=== PATIENT | male | born 1960 | race Caucasian/White ===

== ENCOUNTER 2022-09-21 11:18 | Inpatient (IN) | payer OTHER ==
[2022-09-21] MEDS ORDERED: VANCOMYCIN IV PER PHARMACY 1 EACH MISC MISCELLANE PRN (12:21)
[2022-09-21] MEDS ORDERED: SODIUM CHLORIDE 0.9% 1,000 ML IV STA (12:21)
[2022-09-21] MEDS ORDERED: DIPH,PERTUS(ACELL)TETVAC-LF 0.5 ML VIAL IM ONE (12:24)
[2022-09-21] MEDS ORDERED: MORPHINE SULFATE 4 MG/ML SYRINGE IVP STA (12:24)
[2022-09-21] MEDS ORDERED: VANCOMYCIN 1,500 MG in SODIUM CHLORIDE 0.9% 500 ML 500 ML IVPB STA (12:27)
[2022-09-21 13:24] LABS: Basophils # (A) 0.1 k/uL (0-0.2); Basophils % (A) 1 %; Eosinophils # (A) 0.1 k/uL (0-0.7); Eosinophils % (A) 1 %; HCT 42.3 % (39.0-53.0); HGB 14.5 gm/dL (13.0-17.5); Lymphocytes # (A) 1.8 k/uL (1.0-4.8); Lymphocytes % (A) 22 %; MCH 33.3 pg (25.0-35.0); MCHC 34.4 g/dL (31.0-37.0); MCV 96.8 fL (80.0-100.0); Monocytes # (A) 0.5 k/uL (0-1.0); Monocytes % (A) 7 %; Neutrophils # (A) 5.6 k/uL (1.3-7.7); Neutrophils % (A) 68 %; Platelet Count 189 k/uL (150-450); RBC 4.37 m/uL (4.30-5.90); RDW 13.5 % (11.5-15.5); WBC 8.2 k/uL (3.8-10.6)
--- NOTE | 2022-09-21 13:30 | ED ---
General Adult HPI - General Chief complaint: Wound/Laceration Stated complaint: Back Pain/Pain in lower Extremities Time Seen by Provider: 09/21/22 12:11 Source: patient, RN notes reviewed, old records reviewed Mode of arrival: wheelchair Limitations: no limitations - History of Present Illness Initial comments: Patient is a 61-year-old male with past medical history that he states is unremarkable, with a history of daily alcohol use as well as remote history of DVT in the right arm 20 years ago who presents emergency Department complaining of months of skin changes of the lower extremities. Seems to have gotten worse over the last 3-5 weeks. Has no some dark red changes to bilateral lower extremities, and then also began noticing some left foot skin changes. Became more erythematous, warm. Head skin that was peeling which he peeled back. Now is an open draining wound of purulent material over the lateral left heel. Denies any fevers. Endorses some acute on chronic lower and mid back pain that is reproducible with movement. No traumas. Denies chest pain, shortness breath, fevers, chills, abdominal pain, nausea, vomiting. Is not currently taking any medications. Presents for further evaluation at this time. His primary complaint is the back pain. Family was at bedside is concerned that he has a bad infection of his foot. No known history of diabetes. No other acute complaints at this time. Patient states he is not bed bound, and is ambulatory.Denies urinary or bowel incontinence or retention. Denies lower extremity paralysis. Denies saddle anesthesias. - Related Data Home Medications Medication Instructions Recorded Confirmed No Known Home Medications 09/21/22 09/21/22 Allergies Allergy/AdvReac Type Severity Reaction Status Date / Time Penicillins Allergy Rash/Hives Verified 09/21/22 15:20 Review of Systems ROS Statement: Those systems with pertinent positive or pertinent negative responses have been documented in the HPI. Review of Systems: CONST: Denies fever EYES: Denies blurry vision ENT: Denies nasal congestion C/V: Denies Chest pain RESP: Denies shortness of breath GI: Denies abdominal pain : Denies dysuria SKIN: Endorses left foot wound MSK: Endorses back pain NEURO: Denies headache ROS Other: All systems not noted in ROS Statement are negative. Past Medical History Past Medical History: Deep Vein Thrombosis (DVT) Additional Past Medical History / Comment(s): rt arm dvt History of Any Multi-Drug Resistant Organisms: None Reported Past Surgical History: No Surgical Hx Reported Past Psychological History: No Psychological Hx Reported Smoking Status: Current every day smoker Past Alcohol Use History: Daily, Heavy Past Drug Use History: None Reported General Exam - General Exam Comments Initial Comments: General: Appears in no acute distress. HEAD: Normal with no signs of head trauma. EYES: EOMI ENT: Hearing grossly intact, normal oropharynx. RESPIRATORY: Clear breath sounds bilaterally. No wheezes, rales, or rhonchi. C/V: Regular rate and rhythm. S1 and S2 auscultated, peripheral pulses 2+ and intact throughout ABD: Abd is soft, nontender, nondistended EXT: No obvious deformity. Normal range of motion. SKIN: Patient has purple-red discoloration of bilateral lower extremities. Left lower extremity appears more significant as it is involving both patient as well as the foot. Appears to have palpable dorsalis pedis pulses in bilateral lower extremities. Has intact sensation. Has intact movement. Neurovascular intact in bilateral lower extremities. Patient's wound is draining a yellow purulent like material. It is located on the inferior lateral aspect of the left foot, more posteriorly towards the heel. NEURO: Alert and oriented x 4. Cranial nerves II-XII intact. No focal sensory or strength deficits. Limitations: no limitations Course Vital Signs 09/21/22 09/21/22 09/21/22 11:55 13:07 20:22 Temperature 97.9 F Pulse Rate 76 72 74 Respiratory 20 18 18 Rate Blood Pressure 116/64 114/71 113/67 O2 Sat by Pulse 100 99 99 Oximetry Medical Decision Making - Medical Decision Making Was pt. sent in by a medical professional or institution (, PA, EDUCATION OFFICER, urgent care, hospital, or [facility]...) When possible be specific @ -No Did you speak to anyone other than the patient for history (EMS, parent, family, police, friend...)? What history was obtained from this source @ -No Did you review nursing and triage notes (agree or disagree)? Why? @ -I reviewed and agree with nursing and triage notes Were old charts reviewed (outside hosp., previous admission, EMS record, old EKG, old radiological studies, urgent care reports/EKG's, [facility] records)? Report findings @ -No old charts were reviewed Differential Diagnosis (chest pain, altered mental status, abdominal pain women, abdominal pain men, vaginal bleeding, weakness, fever, dyspnea, syncope, headache, dizziness, GI bleed, back pain, seizure, CVA, palpatations, mental health, musculoskeletal)? @ -Wet gangrene, dry gangrene, lower extremity infection, DVT, arterial occlusion, alcohol abuse, musculoskeletal back back pain, Osteomyelitis. This list is not all-inclusive. EKG interpreted by me (3pts min.). @ -As above X-rays interpreted by me (1pt min.). @ -Patient's x-rays remarkable for no obvious acute cardiopulmonary process. Appears to have an L4 compression fracture, more acute than other age-i ndeterminate ones. Left lower extremity x-rays revealed no evidence of osteomyelitis. CT interpreted by me (1pt min.). @ -None done U/S interpreted by me (1pt. min.). @ -Lower extremity ultrasound reveals intact dopplerable pulses in bilateral lower extremities. No evidence of DVTs. What testing was considered but not performed or refused? (CT, X-rays, U/S, labs)? Why? @ -None What meds were considered but not given or refused? Why? @ -None Did you discuss the management of the patient with other professionals (professionals i.e. , PA, EDUCATION OFFICER, lab, RT, psych nurse, social media marketer, feather washer, teacher, structural engineering drafting officer, nurse case management)? Give summary @ -Discussed with Dr. Luke the admitting physician, regarding admission which was accepted. I also discussed consultants, however she states she will consult the necessary physicians. Discussed consult for the what is likely multiple week to month history of the L4 compression fracture and she was in agreement with the evaluation prior to her consulting. Was smoking cessation discussed for >3mins.? @ -No Was critical care preformed (if so, how long)? @ -No Were there social determinants of health that impacted care today? How? (Homelessness, low income, unemployed, alcoholism, drug addiction, transportation, low edu. Level, literacy, decrease access to med. care, custodial, rehab)? @ -No Was there de-escalation of care discussed even if they declined (Discuss DNR or withdrawal of care, Hospice)? DNR status @ -No What co-morbidities impacted this encounter? (DM, HTN, Smoking, COPD, CAD, Cancer, CVA, ARF, Chemo, Hep., AIDS, mental health diagnosis, sleep apnea, morbid obesity)? @ -Alcohol abuse Was patient admitted / discharged? Hospital course, mention meds given and route, prescriptions, significant lab abnormalities, going to OR and other pertinent info. @ -Based on the patient's presentation and physical exam, patient appears to have presented for musculoskeletal reproducible back pain as well as a more sign ificant left foot infection. Appears to be wet gangrene related. Appears to have intact peripheral pulses as well as sensation. Neurovascular exam is unremarkable the left lower extremity. However we will obtain duplex ultrasounds as well as x-ray imaging of the left lower extremity as well as the back and chest. Patient was in agreement this plan. We will obtain infectious labs. He will empirically be started on IV vancomycin. We will obtain wound cultures as well as blood cultures. Vital signs within acceptable limits. Patient will receive a 1 L fluid bolus as well as IV morphine for pain. Tetanus will be updated. Patient was in agreement this plan. Imaging remarkable for no DVT in the left lower extremity. No evidence of I myelitis. Has what appears to be a subacute L4 compression fracture in the setting of no recent falls and pain for multiple months. No concern for cauda equina syndrome at this time. Patient does have intact pulses in bilateral lower extremities. Patient's labs are remarkable for a furniture anemia of 127. Hypochloremia of 96., Carbon Dioxide is decreased to 18. Lactic acid within acceptable limits. Remainder of the labs are within acceptable limits. Discussed the workup with the patient. We will continue IV antibiotics and admit him at this time. He was in agreement this plan. I spoke with the admitting physician, Dr. Luke who accepted the patient. She states she will handle consultants after she evaluates the patient. Otherwise in agreement with the plan.He likely will require vascular as well as orthopedic surgery consult and evaluation. Undiagnosed new problem with uncertain prognosis? @ -No Drug Therapy requiring intensive monitoring for toxicity (Heparin, Nitro, Insulin, Cardizem)? @ -No Were any procedures done? @ -No Diagnosis/symptom? @ -Dry gangrene, possible mild wet gangrene of the left foot. Acute, or Chronic, or Acute on Chronic? @ -Acute on chronic Uncomplicated (without systemic symptoms) or Complicated (systemic symptoms)? @ -Complicated Side effects of treatment? @ -none Exacerbation, Progression, or Severe Exacerbation] @ -no Poses a threat to life or bodily function? @ -Yes Diagnosis/symptom? @ -Intractable chronic low back pain with what appears to be subacute L2 compression fracture with no recent falls or obvious injuries Acute, or Chronic, or Acute on Chronic? @ -Acute Uncomplicated (without systemic symptoms) or Complicated (systemic symptoms)? @ -Uncomplicated Side effects of treatment? @ -none Exacerbation, Progression, or Severe Exacerbation] @ -no Poses a threat to life or bodily function? @ -no Diagnosis/symptom? @ -Alcohol abuse Acute, or Chronic, or Acute on Chronic? @ -Chronic Uncomplicated (without systemic symptoms) or Complicated (systemic symptoms)? @ -Uncomplicated Side effects of treatment? @ -none Exacerbation, Progression, or Severe Exacerbation] @ -no Poses a threat to life or bodily function? @ -no - Lab Data Result diagrams: 09/21/22 12:50 09/21/22 21:44 Lab Results 09/21/22 09/21/22 09/21/22 Range/Units 12:50 12:50 12:50 WBC (3.8-10.6) k/uL RBC (4.30-5.90) m/uL Hgb (13.0-17.5) gm/dL Hct (39.0-53.0) % MCV (80.0-100.0) fL MCH (25.0-35.0) pg MCHC (31.0-37.0) g/dL RDW (11.5-15.5) % Plt Count (150-450) k/uL MPV Neutrophils % % Lymphocytes % % Monocytes % % Eosinophils % % Basophils % % Neutrophils # (1.3-7.7) k/uL Lymphocytes # (1.0-4.8) k/uL Monocytes # (0-1.0) k/uL Eosinophils # (0-0.7) k/uL Basophils # (0-0.2) k/uL PT 10.2 (9.0-12.0) sec INR 1.0 (<1.2) APTT 26.8 (22.0-30.0) sec Sodium 127 L (137-145) mmol/L Potassium 3.9 (3.5-5.1) mmol/L Chloride 96 L (98-107) mmol/L Carbon Dioxide 18 L (22-30) mmol/L Anion Gap 13 mmol/L BUN 14 (9-20) mg/dL Creatinine 0.71 (0.66-1.25) mg/dL Est GFR (CKD-EPI)AfAm >90 (>60 ml/min/1.73 sqM) Est GFR (CKD-EPI)NonAf >90 (>60 ml/min/1.73 sqM) Glucose 103 H (74-99) mg/dL Plasma Lactic Acid Klever (0.7-2.0) mmol/L Calcium 9.0 (8.4-10.2) mg/dL Total Bilirubin 1.9 H (0.2-1.3) mg/dL AST 39 (17-59) U/L ALT 24 (4-49) U/L Alkaline Phosphatase 189 H (38-126) U/L Total Protein 8.2 (6.3-8.2) g/dL Albumin 3.9 (3.5-5.0) g/dL Urine Color Yellow Urine Appearance Clear (Clear) Urine pH 5.5 (5.0-8.0) Ur Specific [place] 1.013 (1.001-1.035) Urine Protein Negative (Negative) Urine Glucose (UA) Negative (Negative) Urine Ketones 1+ H (Negative) Urine Blood Trace H (Negative) Urine Nitrite Negative (Negative) Urine Bilirubin Negative (Negative) Urine Urobilinogen 2.0 (<2.0) mg/dL Ur Leukocyte Esterase Negative (Negative) Urine RBC 1 (0-5) /hpf Urine WBC 1 (0-5) /hpf Ur Squamous Epith Cells <1 (0-4) /hpf Urine Mucus Rare H (None) /hpf Serum Alcohol 17 mg/dL 09/21/22 09/21/22 Range/Units 12:50 12:50 WBC 8.2 (3.8-10.6) k/uL RBC 4.37 (4.30-5.90) m/uL Hgb 14.5 (13.0-17.5) gm/dL Hct 42.3 (39.0-53.0) % MCV 96.8 (80.0-100.0) fL MCH 33.3 (25.0-35.0) pg MCHC 34.4 (31.0-37.0) g/dL RDW 13.5 (11.5-15.5) % Plt Count 189 (150-450) k/uL MPV 10.0 Neutrophils % 68 % Lymphocytes % 22 % Monocytes % 7 % Eosinophils % 1 % Basophils % 1 % Neutrophils # 5.6 (1.3-7.7) k/uL Lymphocytes # 1.8 (1.0-4.8) k/uL Monocytes # 0.5 (0-1.0) k/uL Eosinophils # 0.1 (0-0.7) k/uL Basophils # 0.1 (0-0.2) k/uL PT (9.0-12.0) sec INR (<1.2) APTT (22.0-30.0) sec Sodium (137-145) mmol/L Potassium (3.5-5.1) mmol/L Chloride (98-107) mmol/L Carbon Dioxide (22-30) mmol/L Anion Gap mmol/L BUN (9-20) mg/dL Creatinine (0.66-1.25) mg/dL Est GFR (CKD-EPI)AfAm (>60 ml/min/1.73 sqM) Est GFR (CKD-EPI)NonAf (>60 ml/min/1.73 sqM) Glucose (74-99) mg/dL Plasma Lactic Acid Klever 1.8 (0.7-2.0) mmol/L Calcium (8.4-10.2) mg/dL Total Bilirubin (0.2-1.3) mg/dL AST (17-59) U/L ALT (4-49) U/L Alkaline Phosphatase (38-126) U/L Total Protein (6.3-8.2) g/dL Albumin (3.5-5.0) g/dL Urine Color Urine Appearance (Clear) Urine pH (5.0-8.0) Ur Specific [place] (1.001-1.035) Urine Protein (Negative) Urine Glucose (UA) (Negative) Urine Ketones (Negative) Urine Blood (Negative) Urine Nitrite (Negative) Urine Bilirubin (Negative) Urine Urobilinogen (<2.0) mg/dL Ur Leukocyte Esterase (Negative) Urine RBC (0-5) /hpf Urine WBC (0-5) /hpf Ur Squamous Epith Cells (0-4) /hpf Urine Mucus (None) /hpf Serum Alcohol mg/dL - EKG Data -: EKG Interpreted by Me EKG Comments: 12-lead Electrocardiogram Interpretation Note EKG was reviewed and interpreted by myself. 12-lead ECG performed at 1245 is interpreted by me as revealing normal sinus rhythm at a rate of 67 beats per minute. George is normal. NM interval is 142 ms, QRS duration is 101 ms, QTc is 428 ms.. There were no ST or T wave abnormalities to suggest myocardial ischemia or injury. R wave progression across the precordium was satisfactory. By my interpretation this EKG is non-diagnostic for acute ischemia. Disposition Clinical Impression: Dry gangrene, Peripheral vascular disease, Lumbar compression fracture, Alcohol abuse Disposition: ADMITTED IP TO THIS HOSP Condition: Serious Time of Disposition: 15:49
[2022-09-21 13:48] LABS: ALT 24 U/L (4-49); AST 39 U/L (17-59); African American GFR (CKD) >90 (>60 ml/min/1.73 sqM); Albumin 3.9 g/dL (3.5-5.0); Alcohol 17 mg/dL; Alkaline Phosphatase 189 U/L (38-126); Anion Gap 13 mmol/L; Blood Urea Nitrogen 14 mg/dL (9-20); Carbon Dioxide 18 mmol/L (22-30); Chloride 96 mmol/L (98-107); Glucose 103 mg/dL (74-99); Non-African American GFR(CKD) >90 (>60 ml/min/1.73 sqM); Potassium 3.9 mmol/L (3.5-5.1); Sodium 127 mmol/L (137-145); Total Bilirubin 1.9 mg/dL (0.2-1.3); Total Protein 8.2 g/dL (6.3-8.2)
--- NOTE | 2022-09-21 13:50 | XR ---
EXAMINATION TYPE: XR chest 2V DATE OF EXAM: 09/21/2022 COMPARISON: NONE HISTORY: Chest pain. TECHNIQUE: Frontal and lateral views of the chest are obtained. FINDINGS: Mild chronic parenchymal changes are present bilaterally. There is no suspicious focal air space opacity, pleural effusion, or pneumothorax seen. The cardiac silhouette size is within normal limits. The osseous structures are demineralized. IMPRESSION: No acute cardiopulmonary process.
--- NOTE | 2022-09-21 13:53 | XR ---
EXAMINATION TYPE: XR tibia fibula LT DATE OF EXAM: 09/21/2022 CLINICAL HISTORY: Pain. TECHNIQUE: Two views of the left leg are obtained. COMPARISON: None. FINDINGS: There is no acute fracture or dislocation seen in the left tibia or fibula. Mild to modera te narrowing patellofemoral and medial tibiofemoral compartments in the left knee. Small to moderate size inferior calcaneal spur. Overlying clothing or blanket material is noted making evaluation of s oft tissues suboptimal. IMPRESSION: As above.
--- NOTE | 2022-09-21 13:55 | XR ---
EXAMINATION TYPE: XR thoracic spine 2V, XR lumbar spine 2 or 3V DATE OF EXAM: 09/21/2022 1:46 PM INDICATION: Patient age:Male; 61 years old; Reason for study: pain; COMPARISON: None TECHNIQUE: 2 views of the thoracic and lumbar spine in Frontal and lateral projections. FINDINGS: Acute appearing L4 vertebral body compression fracture with at least 25% height loss. There are addit ional age-indeterminate compression deformities throughout the visualized lower thoracic spine/upper lumbar. There is scattered multilevel disk space narrowing. There is straightened alignment of the th oracic lumbar vertebral bodies. Scattered osteophyte formation along the anterior and lateral aspects of the vertebral bodies. Neural foramen are patent given limitations of this exam. Spinal canal appe ars patent. IMPRESSION: 1. Acute appearing L4 compression fracture. Further evaluation MRI is recommended. 2. Multiple compression deformities which are age-indeterminate throughout the lower thoracic and up per lumbar spine.
[2022-09-21 13:58] LABS: Partial Thromboplastin Time 26.8 sec (22.0-30.0); Prothrombin Time 10.2 sec (9.0-12.0)
--- NOTE | 2022-09-21 14:00 | XR ---
EXAMINATION TYPE: XR foot limited LT DATE OF EXAM: 09/21/2022 CLINICAL HISTORY: open wound, heel/foot. eval for osteo TECHNIQUE: Frontal and lateral images of the left foot are obtained. COMPARISON: None FINDINGS: Osseous structures are demineralized. There is no acute fracture/dislocation evident in th e left foot. Moderate to large size inferior calcaneal spur. The Chamberlain's toe is seen. No suspicious bony destruction with particular attention to the calcaneus at the area of clinical concern to sugges t acute osteomyelitis. Some flexion of pneumatosis seen. Overlying soft tissue is unremarkable. IMPRESSION: As above.
--- NOTE | 2022-09-21 15:09 | US ---
EXAMINATION TYPE: US venous doppler duplex LE BI DATE OF EXAM: 09/21/2022 2:39 PM COMPARISON: NONE CLINICAL INDICATION: Male, 61 years old with history of eval for dvt; bilateral leg pain. discolorati on bilateral legs, worse on the left SIDE PERFORMED: bilateral TECHNIQUE: The lower extremity deep venous system is examined utilizing real time linear array sonog kalyn with graded compression, doppler sonography and color-flow sonography. VESSELS IMAGED: Common Femoral Vein Deep Femoral Vein Greater Saphenous Vein * Femoral Vein Popliteal Vein Small Saphenous Vein * Proximal Calf Veins (* superficial vessels) Right Leg: no evidence of DVT Left Leg: no evidence of DVT. lymph nodes left groin, largest = 3.5cm Grayscale, color doppler, spectral doppler imaging performed of the deep veins of the bilateral lower extremities. There is normal flow, compressibility, vascular waveforms. Reactive adenopathy left groin region suspected. IMPRESSION: No ultrasound evidence for acute DVT in either lower extremity.
[2022-09-21] MEDS ORDERED: ACETAMINOPHEN TAB 325 MG TAB PO PRN (15:56)
[2022-09-21] MEDS ORDERED: NALOXONE 0.4 MG/ML 1 ML VIAL IV PRN (15:56)
[2022-09-21] MEDS: MORPHINE SULFATE 4 MG/ML SYRINGE IV PRN ×2 (17:45→23:07)
[2022-09-21] MEDS: HEPARIN SODIUM,PORCINE/PF 5,000 UNIT/0.5 ML SYRINGE SQ SCH ×2 (17:47→23:07)
[2022-09-21 18:04] LABS: Appearance,Urine Clear (Clear); Bilirubin,Urine Negative (Negative); Blood,Urine Trace (Negative); Color,Urine Yellow; Glucose,Urine (UA) Negative (Negative); Ketones,Urine 1+ (Negative); Leukocyte Esterase,Urine Negative (Negative); Mucus,Urine Rare /hpf; Nitrite,Urine Negative (Negative); PH, Urine 5.5 (5.0-8.0); Protein,Urine Negative (Negative); RBC,Urine 1 /hpf (0-5); Specific Gravity,Urine 1.013 (1.001-1.035); Squamous Epithelial Cell,Urine <1 /hpf (0-4); WBC,Urine 1 /hpf (0-5)
[2022-09-21] MEDS ORDERED: MELATONIN 3 MG TABLET PO PRN (19:23)
[2022-09-21] MEDS ORDERED: bisacodyL 5 MG TABLET.DR PO PRN (19:23)
[2022-09-21] MEDS ORDERED: ONDANSETRON 4 MG/2 ML VIAL IVP PRN (19:23)
[2022-09-21] MEDS ORDERED: NICOTINE GUM (POLACRILEX) 2 MG GUM BUCCAL PRN (19:23)
[2022-09-21] MEDS ORDERED: LORazepam 2 MG/ML INJ IV PRN ×3 (19:26)
--- NOTE | 2022-09-21 19:28 | P.HPIM ---
History of Present Illness H&P Date: 09/21/22 Patient is a 61-year-old male with nicotine and alcohol dependency who presented to the ER with complaints of bilateral lower extremity pain. On arrival his vital signs were within normal limits. Laboratory analysis was remarkable for a carbon dioxide of 18, sodium of 127, total bilirubin of 1.9. He was found to have an acute L2 compression fracture and probable dry gangrene of the left lower extremity. He was started on vanco and pain medications and arrangement were made for admission. Patient seen and examined at bedside. He complained of back and leg pain for the last 3-5 weeks. He states that 3-5 weeks ago he started noticing some discoloration of bilateral lower extremities left greater than right. At that point in time he noticed some shaking of his skin and removed a large piece of skin from his left lateral malleolus. Since then he has had worsening di scoloration and wound forming on that malleolus. He also describes low back pain which has been worsening in nature. He does not have much lower extremity pain when he is laying but every time he gets up to ambulate he has significant pain. He denies any numbness or tingling. He denies any acute injury to that area. He denies any recent falls. He does report that he drinks 340 ounce beers daily. He denies any chronic medical conditions but has not seen a doctor since 2007. He reports that he is retired. Patient is unable to perform greater than 4 Mets due to shortness of breath. He is unable to walk up flight of stairs or down 2 city blocks. Vital signs reviewed General: nontoxic, no distress, appears at stated age Derm: warm, dry, Thick yellow back plawuing of the left lateral malleolus with surrounding skin coughing and erythema Eyes: EOMI, no lid lag, anicteric sclera, pupils equal round reactive to light ENT: Nose and ears atraumatic, no thrush, no pharyngeal erythema Cardiovascular: S1S2 reg, no murmur, no palpable dorsalis pedis or posterior tibial pulses, no edema, capillary refill less than 2 seconds Lungs: clear to auscultation bilateral, no rhonchi, no rales, no wheeze, no accessory muscle use Abdominal: soft, nontender to palpation, no guarding, no appreciable organomegaly, normal bowel sounds Ext: no gross muscle atrophy, no contractures Neuro: CN II-XII grossly intact, light touch intact all 4 extremities, finger to nose within normal limits, Psych: Alert, oriented, appropriate affect Assessment: Left lower limb ischemia with possible dry gangrene, symptomatic PAD Intractable low back pain with L2 acute compression fracture Nicotine dependency Alcohol dependency with impending withdrawal Imaging: Chest x-ray showed no acute process. Left foot x-ray-no acute fracture or dislocation, moderate to large sized inferior calcaneal spur Tib-fib x-ray on the right-no acute process Lumbar x-ray-acute appearing L4 compression fracture, further evaluation with MRI recommended, multiple compression deformities which are age intermediate throughout the lower thoracic and lumbar spine Large, the venous Doppler-no evidence of acute DVT in either lower extremity, en larged lymph nodes left groin largest 3.5 cm Arterial Dopplers-toe brachial index right 1.13, left 0.93 Data Review: Laboratory analysis was remarkable for a carbon dioxide of 18, sodium of 127, total bilirubin of 1.9. Plan: -Consult spine ortho -Consult vascular surgery, nothing by mouth after midnight -Morphine 4 mg every 4 when necessary pain, Norvasc 7. 5/325 every 6 hours when necessary pain -Continue with vancomycin. Will need daily vancomycin trough and creatinine to monitor for toxicity and -Nicotine replacement -IV fluids -CIWA, thiamine, folic acid - PT/OT - fall precautions. The patient is admitted with an anticipated greater than 2 midnight stay for evaluation of Ischemic limb. DVT prophylaxis: Lovenox Discussed with: Patient and nursing Anticipated discharge date: Pending Clinical Course Anticipated discharge place: Pending Clinical Course This dictation was prepared using [employer] voice recognition software. Though every attempt is made to correct errors during during dictation some may still exist. Past Medical History Past Medical History: Deep Vein Thrombosis (DVT) Additional Past Medical History / Comment(s): rt arm dvt History of Any Multi-Drug Resistant Organisms: None Reported Past Surgical History: No Surgical Hx Reported Past Psychological History: No Psychological Hx Reported Smoking Status: Current every day smoker (1.5 PPD since age 18) Past Alcohol Use History: Daily (3 40 ounce beers daily), Heavy Past Drug Use History: None Reported Medications and Allergies Home Medications Medication Instructions Recorded Confirmed Type No Known Home Medications 09/21/22 09/21/22 History Allergies Allergy/AdvReac Type Severity Reaction Status Date / Time Penicillins Allergy Rash/Hives Verified 09/21/22 15:20 Physical Exam Osteopathic Statement: *. No significant issues noted on an osteopathic str uctural exam other than those noted in the History and Physical/Consult. Vitals: Vital Signs Temp Pulse Resp BP Pulse Ox 09/21/22 13:07 72 18 114/71 99 09/21/22 11:55 97.9 F 76 20 116/64 100 Intake and Output 09/21/22 09/21/22 09/21/22 06:59 14:59 22:59 Other: Weight 83.915 kg Results CBC & Chem 7: 09/21/22 12:50 09/21/22 12:50 Labs: Abnormal Lab Results - Last 24 Hours (Table) 09/21/22 09/21/22 Range/Units 12:50 12:50 Sodium 127 L (137-145) mmol/L Chloride 96 L (98-107) mmol/L Carbon Dioxide 18 L (22-30) mmol/L Glucose 103 H (74-99) mg/dL Total Bilirubin 1.9 H (0.2-1.3) mg/dL Alkaline Phosphatase 189 H (38-126) U/L Urine Ketones 1+ H (Negative) Urine Blood Trace H (Negative) Urine Mucus Rare H (None) /hpf
[2022-09-21] MEDS: SODIUM CHLORIDE 0.9% 1,000 ML IV SCH (20:16)
[2022-09-21 22:07] LABS: African American GFR (CKD) >90 (>60 ml/min/1.73 sqM); Anion Gap 6 mmol/L; Blood Urea Nitrogen 13 mg/dL (9-20); Calcium 7.9 mg/dL (8.4-10.2); Carbon Dioxide 22 mmol/L (22-30); Chloride 101 mmol/L (98-107); Glucose 104 mg/dL (74-99); Non-African American GFR(CKD) >90 (>60 ml/min/1.73 sqM); Potassium 4.1 mmol/L (3.5-5.1); Sodium 129 mmol/L (137-145)
[2022-09-21] MEDS: VANCOMYCIN 1,250 MG in SODIUM CHLORIDE 0.9% 250 ML IVPB SCH (23:00)
--- NOTE | 2022-09-21 23:10 | CT ---
EXAM: CT Thoracic Spine Without Intravenous Contrast CLINICAL HISTORY: ITS.REASON CT Reason: back pain, weakness, L2 compression fracture TECHNIQUE: Axial computed tomography images of the thoracic spine without intravenous contrast. CTDI is 22.59 mGy and DLP is 1631.5 mGy-cm. This CT exam was performed using one or more of the following dose reduction techniques: automated exposure control, adjustment of the mA and/or kV according to patient size, and/or use of iterative reconstruction technique. COMPARISON: No relevant prior studies available. FINDINGS: Vertebrae: Subacute-chronic compression fractures involving the superior endplate of T12 (mild), T9 (moderate), and T7 (moderate). Mild retropulsion of the superior endplates of T12 and T7, which contribute to low-grade spinal canal stenosis. Thoracic spondylosis and disc space narrowing. Multilevel foraminal and spinal canal stenosis. Osseous demineralization. Intact spinous processes and transverse processes. No spondylolisthesis. Discs/spinal canal/neural foramina: See above. Soft tissues: Unremarkable. IMPRESSION: Subacute-chronic compression fractures involving the superior endplate of T12 (mild), T9 (moderate), and T7 (moderate). Mild retropulsion of the superior endplates of T12 and T7, which contribute to low-grade spinal canal stenosis. Consider MRI for further evaluation. EXAM: CT Lumbar Spine Without Intravenous Contrast CLINICAL HISTORY: ITS.REASON CT Reason: back pain, weakness, L2 compression fracture TECHNIQUE: Axial computed tomography images of the lumbar spine without intravenous contrast. CTDI is 22.59 mGy and DLP is 1631.5 mGy-cm. This CT exam was performed using one or more of the following dose reduction techniques: automated exposure control, adjustment of the mA and/or kV according to patient size, and/or use of iterative reconstruction technique. COMPARISON: No relevant prior studies available. FINDINGS: Vertebrae: Subacute-chronic compression fracture involving the superior endplate of L1 and L4. There is mild retropulsion of both superior endplates, which contributes to mild spinal canal stenosis. Lumbar spondylosis and disc space narrowing. Multilevel foraminal and spinal canal stenosis. Osseous demineralization. Intact spinous processes and transverse processes. No spondylolisthesis. Discs/spinal canal/neural foramina: See above. Soft tissues: Unremarkable. IMPRESSION: Subacute-chronic compression fracture involving the superior endplate of L1 and L4. There is mild retropulsion of both superior endplates, which contributes to mild spinal canal stenosis. Consider MRI for further evaluation.
[2022-09-22] MEDS: MORPHINE SULFATE 4 MG/ML SYRINGE IV PRN ×4 (03:07→21:42)
[2022-09-22] MEDS: VANCOMYCIN 1,250 MG in SODIUM CHLORIDE 0.9% 250 ML IVPB SCH ×3 (06:23→22:35)
[2022-09-22] MEDS: SODIUM CHLORIDE 0.9% 1,000 ML IV SCH ×2 (06:24→15:29)
[2022-09-22 06:58] LABS: INR 1.1 (<1.2); Prothrombin Time 11.6 sec (9.0-12.0)
[2022-09-22 06:59] LABS: HCT 35.2 % (39.0-53.0); HGB 11.8 gm/dL (13.0-17.5); MCH 32.9 pg (25.0-35.0); MCHC 33.6 g/dL (31.0-37.0); MCV 97.7 fL (80.0-100.0); Mean Platelet Volume 9.9; Platelet Count 145 k/uL (150-450); RDW 13.9 % (11.5-15.5); WBC 6.4 k/uL (3.8-10.6)
[2022-09-22 07:58] LABS: African American GFR (CKD) >90 (>60 ml/min/1.73 sqM); Anion Gap 6 mmol/L; Blood Urea Nitrogen 13 mg/dL (9-20); Carbon Dioxide 20 mmol/L (22-30); Chloride 105 mmol/L (98-107); Glucose 87 mg/dL (74-99); Non-African American GFR(CKD) >90 (>60 ml/min/1.73 sqM); Potassium 4.2 mmol/L (3.5-5.1); Sodium 131 mmol/L (137-145)
[2022-09-22] MEDS: HEPARIN SODIUM,PORCINE/PF 5,000 UNIT/0.5 ML SYRINGE SQ SCH ×3 (08:17→23:52)
[2022-09-22] MEDS: NICOTINE 21MG/24HR PATCH TRANSDERM SCH (08:18)
[2022-09-22] MEDS: FOLIC ACID 1 MG TAB PO SCH (08:18)
[2022-09-22] MEDS: HYDROcodone/APAP 5-325MG 1 EACH TAB PO PRN (08:18)
[2022-09-22] MEDS: THIAMINE 100 MG TAB PO SCH (08:18)
--- NOTE | 2022-09-22 08:57 | P.CNOR ---
History of Present Illness - [facility] Consult date: 09/22/22 Requesting physician: Ember Luke Consult reason: low back pain, other (Compression fracture) History of present illness: History of Presenting Illness Patient is a pleasant 61-year-old male who presented to the ER due to bilateral lower extremity pain. He states that he is ambulatory independently. Patient states that [place] live on the streets and goes to his son-in-law's when it is cold and stays in his basement. Patient denies any recent falls or trauma. He does report chronic back pain that seems to be progressing over the past few months. Patient reports that he looks for his medications on the streets. He admits to daily nicotine and alcohol use. He denies any previous othropedic history. Patient seen and examined this morning. He is currently resting in bed. Patient reports an aching lumbar pain with intermittent sharp pain with activity. Patient states his pain is controlled on current regimen. He denies any numbness or tingling into the bilateral lower extremities. It is documented that patient does present with a open draining wound of purulent material over the lateral left heel, current dressing covering wound is CDI. He denies any retention/loss of bladder or bowel. Patient has been afebrile, denies nausea/vomiting or chest pain. Review of Systems Pertinent positives and negatives as discussed in HPI, a complete review of systems was performed and all other systems are negative. Physical Examination Patient is alert and oriented 3 appears well-nourished well-hydrated is in no acute distress. They do not appear septic. On exam the patient has mild tenderness to palpation over the midline lumbar s pine. There is no edema or ballottement sign. Lower extremities with 4/5 strength in all major muscle groups Upper extremities show 5/5 strength in all major muscle groups. 2/4DTR all UE and LE b/l Patient shows a negative Homans, Collins's, negative Babinski's negative clonus bilaterally. Negative straight leg raise bilaterally. No tensioning signs. Cranial nerves II through XII are grossly intact. There is FROM that is painless of the b/l UE and LE in all major joints w/o pain. They are intact to light touch sensation in L2 to S1 nerve distribution. Patient has palpable dorsalis pedis was posterior tibial pulses. Compartments are soft and compressible. Assessment and Plan CT of the Thoracic and Lumbar Spine demonstrate a subacute-chronic compression fractures involving the superior endplate of T12 (mild), T9 (moderate), and T7 (moderate). Mild retropulsion of the superior endplates of T12 and T7, which contribute to low-grade spinal canal stenosis. Subacute-chronic compression fracture involving the superior endplate of L1 and L4. There is mild retropulsion of both superior endplates, which contributes to mild spinal canal stenosis. Chronic compression fractures of T7, T9, and T12 with mild spinal canal stenosis Chronic L1 compression fracture Acute L4 compression fracture BLE radiculopathy Multple comorbidities At this time we do not recommend any emergent/urgent orthopedic surgical intervention. Patient may follow-up with Dr. Evangelista's office for further evaluation as needed. Orthopedics is signing off at this time. Please do not hesitate to contact us for any further questions. 2. Appreciate medical management 3. Pain management - Continue with current regimen, may benefit from trial of steroids 4. GI prophylaxis - senna, miralax 5. DVT prophylaxis - per medicine 6. PT/OT - weightbearing as tolerated with a walker as needed, Recommend LSO brace 7. Appreciate consult I reviewed and discussed this case with my attending Dr. Evangelista, whom has reviewed this chart and films and is in agreement with assessment and plan of care as outlined above. I have personally seen and examined the patient, performed the documentation and the assessment and plan as written. Number of minutes spent on the visit: 20m. Past Medical History Past Medical History: Deep Vein Thrombosis (DVT) Additional Past Medical History / Comment(s): rt arm dvt History of Any Multi-Drug Resistant Organisms: None Reported Past Surgical History: No Surgical Hx Reported Past Anesthesia/Blood Transfusion Reactions: No Reported Reaction Past Psychological History: No Psychological Hx Reported Smoking Status: Current every day smoker Past Alcohol Use History: Daily, Heavy Past Drug Use History: None Reported Medications and Allergies Home Medications Medication Instructions Recorded Confirmed Type No Known Home Medications 09/21/22 09/21/22 History Allergies Allergy/AdvReac Type Severity Reaction Status Date / Time Penicillins Allergy Rash/Hives Verified 09/21/22 15:20 Results - Labs Labs: Abnormal Lab Results - Last 24 Hours (Table) 09/21/22 09/21/22 09/21/22 Range/Units 12:50 12:50 21:44 RBC (4.30-5.90) m/uL Hgb (13.0-17.5) gm/dL Hct (39.0-53.0) % Plt Count (150-450) k/uL Sodium 127 L 129 L (137-145) mmol/L Chloride 96 L (98-107) mmol/L Carbon Dioxide 18 L (22-30) mmol/L Creatinine 0.60 L (0.66-1.25) mg/dL Glucose 103 H 104 H (74-99) mg/dL Osmolality (280-301) mosm/kg Calcium 7.9 L (8.4-10.2) mg/dL Total Bilirubin 1.9 H (0.2-1.3) mg/dL Alkaline Phosphatase 189 H (38-126) U/L Urine Ketones 1+ H (Negative) Urine Blood Trace H (Negative) Urine Mucus Rare H (None) /hpf 09/21/22 09/22/22 Range/Units 21:44 05:53 RBC 3.60 L (4.30-5.90) m/uL Hgb 11.8 L (13.0-17.5) gm/dL Hct 35.2 L (39.0-53.0) % Plt Count 145 L (150-450) k/uL Sodium (137-145) mmol/L Chloride (98-107) mmol/L Carbon Dioxide (22-30) mmol/L Creatinine (0.66-1.25) mg/dL Glucose (74-99) mg/dL Osmolality 273 L (280-301) mosm/kg Calcium (8.4-10.2) mg/dL Total Bilirubin (0.2-1.3) mg/dL Alkaline Phosphatase (38-126) U/L Urine Ketones (Negative) Urine Blood (Negative) Urine Mucus (None) /hpf Microbiology - Last 24 Hours (Table) 09/21/22 13:55 Wound Culture - Preliminary Foot - Left 09/21/22 13:55 Anaerobic Culture - Preliminary Foot - Left H & H 09/21/22 09/22/22 Range/Units 12:50 05:53 Hgb 14.5 11.8 L (13.0-17.5) gm/dL Hct 42.3 35.2 L (39.0-53.0) % Coagulation 09/21/22 09/22/22 Range/Units 12:50 05:53 INR 1.0 1.1 (<1.2) Result Diagrams: 09/22/22 05:53 09/22/22 05:53
[2022-09-22] MEDS ORDERED: IV FLUID CONTINUATION 1,000 ML IV ONE (10:28)
--- NOTE | 2022-09-22 10:35 | P.GSCN ---
History of Present Illness Consult date: 09/22/22 Reason for Consult: Symptomatic PAD Requesting physician: Ember Luke History of present illness: This a pleasant 61-year-old male who presented to the emergency department yesterday with concerns of lower extremity pain and infection. Patient states he started noting discoloration and changes to his lower extremities about 5 weeks ago. States over the last couple weeks left lower extremity began getting worse with wound and increased swelling and redness as well as drainage. She denies any significant past medical history. He is a daily smoker and swell as heavy alcoholic use. Patient admits to 3 beers daily. He does admit to pain in lower extremities left greater than right. States he has had some drainage from the left lateral side of ankle. Denies any fevers or chills. Also lower back pain. He denies any recent injuries. Vascular surgery was consulted for symptomatic peripheral arterial disease. Patient did have x-ray of the lumbar spine reporting acute appearing L4 compression fracture. Multiple compression deformities which are age indeterminate throughout the lower thoracic and upper lumbar spine. X-ray of tibula/fibula no acute findings, but x-ray of left foot shows no eviden ce of osteomyelitis. He also underwent lower extremity arterial duplex with REJI on left of 1.32 and right 1.25, consistent with venous insufficiency. Review of Systems A 14 point review systems was completed all pertinent positives and negatives as stated in the HPI. Past Medical History Past Medical History: Deep Vein Thrombosis (DVT) Additional Past Medical History / Comment(s): rt arm dvt History of Any Multi-Drug Resistant Organisms: None Reported Past Surgical History: No Surgical Hx Reported Past Anesthesia/Blood Transfusion Reactions: No Reported Reaction Past Psychological History: No Psychological Hx Reported Smoking Status: Current every day smoker Past Alcohol Use History: Daily, Heavy Past Drug Use History: None Reported Medications and Allergies Home Medications Medication Instructions Recorded Confirmed Type No Known Home Medications 09/21/22 09/21/22 History Allergies Allergy/AdvReac Type Severity Reaction Status Date / Time Penicillins Allergy Rash/Hives Verified 09/21/22 15:20 Surgical - Exam Vital Signs Temp Pulse Resp BP Pulse Ox 97.9 F 76 20 116/64 100 09/21/22 11:55 09/21/22 11:55 09/21/22 11:55 09/21/22 11:55 09/21/22 11:55 General appearance: The patient is alert, oriented, appears in no acute distress. HET: Head is normocephalic and atraumatic. Pupils are equal and reactive. Neck: Supple. Trachea midline. Heart: Regular. Lungs: Equal expansion, normal respiratory effort. Abdomen: Soft, nontender, nondistended. Extremities: Bilateral lower extremity edema with venous stasis. Left lower extremity erythema, lateral aspect of ankle with thick necrotic tissue, no drainage noted at this time. Medial aspect with Necrotic Tissue. Palpable bilateral PT and DP pulses. Neurological: No focal deficits. Alert and oriented 3. Results - Labs 09/22/22 05:53 09/22/22 05:53 Abnormal Lab Results - Last 24 Hours (Table) 09/21/22 09/21/22 09/21/22 Range/Units 12:50 12:50 21:44 RBC (4.30-5.90) m/uL Hgb (13.0-17.5) gm/dL Hct (39.0-53.0) % Plt Count (150-450) k/uL Sodium 127 L 129 L (137-145) mmol/L Chloride 96 L (98-107) mmol/L Carbon Dioxide 18 L (22-30) mmol/L Creatinine 0.60 L (0.66-1.25) mg/dL Glucose 103 H 104 H (74-99) mg/dL Osmolality (280-301) mosm/kg Calcium 7.9 L (8.4-10.2) mg/dL Total Bilirubin 1.9 H (0.2-1.3) mg/dL Alkaline Phosphatase 189 H (38-126) U/L Urine Ketones 1+ H (Negative) Urine Blood Trace H (Negative) Urine Mucus Rare H (None) /hpf 09/21/22 09/22/22 09/22/22 Range/Units 21:44 05:53 05:53 RBC 3.60 L (4.30-5.90) m/uL Hgb 11.8 L (13.0-17.5) gm/dL Hct 35.2 L (39.0-53.0) % Plt Count 145 L (150-450) k/uL Sodium 131 L (137-145) mmol/L Chloride (98-107) mmol/L Carbon Dioxide 20 L (22-30) mmol/L Creatinine 0.57 L (0.66-1.25) mg/dL Glucose (74-99) mg/dL Osmolality 273 L (280-301) mosm/kg Calcium 8.0 L (8.4-10.2) mg/dL Total Bilirubin (0.2-1.3) mg/dL Alkaline Phosphatase (38-126) U/L Urine Ketones (Negative) Urine Blood (Negative) Urine Mucus (None) /hpf Microbiology - Last 24 Hours (Table) 09/21/22 13:55 Wound Culture - Preliminary Foot - Left 09/21/22 13:55 Anaerobic Culture - Preliminary Foot - Left Diabetes panel 09/21/22 09/21/22 09/22/22 Range/Units 12:50 21:44 05:53 Sodium 127 L 129 L 131 L (137-145) mmol/L Potassium 3.9 4.1 4.2 (3.5-5.1) mmol/L Chloride 96 L 101 105 (98-107) mmol/L Carbon Dioxide 18 L 22 20 L (22-30) mmol/L BUN 14 13 13 (9-20) mg/dL Creatinine 0.71 0.60 L 0.57 L (0.66-1.25) mg/dL Glucose 103 H 104 H 87 (74-99) mg/dL Calcium 9.0 7.9 L 8.0 L (8.4-10.2) mg/dL AST 39 (17-59) U/L ALT 24 (4-49) U/L Alkaline Phosphatase 189 H (38-126) U/L Total Protein 8.2 (6.3-8.2) g/dL Albumin 3.9 (3.5-5.0) g/dL Calcium panel 09/21/22 09/21/22 09/22/22 Range/Units 12:50 21:44 05:53 Calcium 9.0 7.9 L 8.0 L (8.4-10.2) mg/dL Albumin 3.9 (3.5-5.0) g/dL Pituitary panel 09/21/22 09/21/22 09/22/22 Range/Units 12:50 21:44 05:53 Sodium 127 L 129 L 131 L (137-145) mmol/L Potassium 3.9 4.1 4.2 (3.5-5.1) mmol/L Chloride 96 L 101 105 (98-107) mmol/L Carbon Dioxide 18 L 22 20 L (22-30) mmol/L BUN 14 13 13 (9-20) mg/dL Creatinine 0.71 0.60 L 0.57 L (0.66-1.25) mg/dL Glucose 103 H 104 H 87 (74-99) mg/dL Calcium 9.0 7.9 L 8.0 L (8.4-10.2) mg/dL Adrenal panel 09/21/22 09/21/22 09/22/22 Range/Units 12:50 21:44 05:53 Sodium 127 L 129 L 131 L (137-145) mmol/L Potassium 3.9 4.1 4.2 (3.5-5.1) mmol/L Chloride 96 L 101 105 (98-107) mmol/L Carbon Dioxide 18 L 22 20 L (22-30) mmol/L BUN 14 13 13 (9-20) mg/dL Creatinine 0.71 0.60 L 0.57 L (0.66-1.25) mg/dL Glucose 103 H 104 H 87 (74-99) mg/dL Calcium 9.0 7.9 L 8.0 L (8.4-10.2) mg/dL Total Bilirubin 1.9 H (0.2-1.3) mg/dL AST 39 (17-59) U/L ALT 24 (4-49) U/L Alkaline Phosphatase 189 H (38-126) U/L Total Protein 8.2 (6.3-8.2) g/dL Albumin 3.9 (3.5-5.0) g/dL Assessment and Plan Assessment: 1. Left lower extremity wound 2. Bilateral lower extremity swelling 3. Bilateral lower extremity venous stasis 4. AcuteL4 compression fracture with chronic thoracic compression fractures 5. Alcohol abuse 6. Nicotine dependence Plan: 1. Keep nothing by mouth except for medications 2. Plan for surgical debridement left lower extremity with deep tissue cultures this afternoon 3. Continue CIWA protocol 4. Recommend ABSTINENCE 5. Smoking cessation 6. Of a bilateral lower extremities 7. Continue medical management Thank you for this consultation, we will continue to follow. The impression and plan of care has been dictated as directed. Dr. Pizano I performed a history and examination of this patient, discussed the same with the dictator. I agree with the dictator's note ,documented as a scribe. Any additional findings or plans will be noted.
--- NOTE | 2022-09-22 11:37 | P.PN ---
Subjective Progress Note Date: 09/22/22 Hospital Course: 61-year-old male with nicotine and alcohol dependency who presented to the ER with complaints of bilateral lower extremity pain. On arrival his vital signs were within normal limits. Laboratory analysis was remarkable for a carbon dioxide of 18, sodium of 127, total bilirubin of 1.9. He was found to have an acute L2 compression fracture and probable dry gangrene of the left lower extremity. He was started on vanco and pain medications and arrangement were made for admission. Pertinent Imaging: Chest x-ray showed no acute process. Left foot x-ray-no acute fracture or dislocation, moderate to large sized inferior calcaneal spur Tib-fib x-ray on the right-no acute process Lumbar x-ray-acute appearing L4 compression fracture, further evaluation with MRI recommended, multiple compression deformities which are age intermediate throughout the lower thoracic and lumbar spine Large, the venous Doppler-no evidence of acute DVT in either lower extremity, enlarged lymph nodes left groin largest 3.5 cm Arterial Dopplers-toe brachial index right 1.13, left 0.93 Thoracic/lumbar spine CT shows subacute/chronic compression fracture involving superior endplate of L1 and L4 Subjective: Patient seen and examined at bedside. No acute events overnight. He claims that his back pain improved. Denies any lower extremity pain. He denies any chest pain, shortness of breath, urinary or bowel complaints. Pertinent positives and negatives as discussed above, a complete review of systems was performed and all other systems are negative. Vitals Signs Reviewed. General: nontoxic, no distress, appears at stated age Derm: warm, dry, Thick yellow back plawuing of the left lateral malleolus with surrounding skin coughing and erythema Eyes: EOMI, no lid lag, anicteric sclera, pupils equal round reactive to light ENT: Nose and ears atraumatic, no thrush, no pharyngeal erythema Cardiovascular: S1S2 reg, no murmur, no palpable dorsalis pedis or posterior t ibial pulses, no edema, capillary refill less than 2 seconds Lungs: clear to auscultation bilateral, no rhonchi, no rales, no wheeze, no accessory muscle use Abdominal: soft, nontender to palpation, no guarding, no appreciable organomegaly, normal bowel sounds Ext: no gross muscle atrophy, no contractures Neuro: CN II-XII grossly intact, light touch intact all 4 extremities, finger to nose within normal limits, Psych: Alert, oriented, appropriate affect Data Reviewed Today: Pertinent Labs: WBC 6.4, hemoglobin 11.8, platelet 145, sodium 131, creatinine 0.57, TSH 2.47 Assessment and Plan: Left lower limb ischemia with possible dry gangrene, symptomatic PAD Intractable low back pain with L2 acute compression fracture Hypovolemic hyponatremia, improving Nicotine dependency Alcohol dependency with impending withdrawal -Vascular surgery note reviewed: Plan for surgical debridement of left lower extremity with deep tissue cultures, likely this afternoon -Superficial wound cultures have been negative so far -Continue vancomycin, monitor for renal toxicity with daily BMP -Orthospine note reviewed-Recommended LSO brace, no emergent/urgent orthopedic surgical interventions, orthopedics signed off -Sodium improved with normal saline, continue normal saline at 1 20 mL an hour -On IV Ativan, per JOHN -Folic acid 1 mg daily, thiamine 100 mg daily -Nicotine patch and nicotine gum DVT ppx: Subcu heparin Code status: Full Code Anticipated discharge place: Pending Clinical course Anticipated discharge time: Pending clinical course Objective - Vital Signs Vital signs: Vital Signs Temp 97.8 F 09/22/22 06:57 Pulse 75 09/22/22 06:57 Resp 18 09/22/22 06:57 BP 99/60 09/22/22 06:57 Pulse Ox 98 09/22/22 06:57 FiO2 Intake & Output 09/21/22 09/22/22 09/22/22 18:59 06:59 18:59 Intake Total 590 Output Total 300 Balance 590 -300 Weight 83.915 kg Intake: Oral 590 Output: Urine 300 Other: Voiding Method Toilet # Voids 2 - Labs CBC & Chem 7: 09/22/22 05:53 09/22/22 05:53 Labs: Abnormal Lab Results - Last 24 Hours (Table) 09/21/22 09/21/22 09/21/22 Range/Units 12:50 12:50 21:44 RBC (4.30-5.90) m/uL Hgb (13.0-17.5) gm/dL Hct (39.0-53.0) % Plt Count (150-450) k/uL Sodium 127 L 129 L (137-145) mmol/L Chloride 96 L (98-107) mmol/L Carbon Dioxide 18 L (22-30) mmol/L Creatinine 0.60 L (0.66-1.25) mg/dL Glucose 103 H 104 H (74-99) mg/dL Osmolality (280-301) mosm/kg Calcium 7.9 L (8.4-10.2) mg/dL Total Bilirubin 1.9 H (0.2-1.3) mg/dL Alkaline Phosphatase 189 H (38-126) U/L Urine Ketones 1+ H (Negative) Urine Blood Trace H (Negative) Urine Mucus Rare H (None) /hpf 09/21/22 09/22/22 09/22/22 Range/Units 21:44 05:53 05:53 RBC 3.60 L (4.30-5.90) m/uL Hgb 11.8 L (13.0-17.5) gm/dL Hct 35.2 L (39.0-53.0) % Plt Count 145 L (150-450) k/uL Sodium 131 L (137-145) mmol/L Chloride (98-107) mmol/L Carbon Dioxide 20 L (22-30) mmol/L Creatinine 0.57 L (0.66-1.25) mg/dL Glucose (74-99) mg/dL Osmolality 273 L (280-301) mosm/kg Calcium 8.0 L (8.4-10.2) mg/dL Total Bilirubin (0.2-1.3) mg/dL Alkaline Phosphatase (38-126) U/L Urine Ketones (Negative) Urine Blood (Negative) Urine Mucus (None) /hpf Microbiology - Last 24 Hours (Table) 09/21/22 13:55 Wound Culture - Preliminary Foot - Left 09/21/22 13:55 Anaerobic Culture - Preliminary Foot - Left
[2022-09-22] MEDS ORDERED: DEXAMETHASONE SOD PHOSPHATE 4 MG/ML 1 ML VIAL IVP ONE (15:35)
[2022-09-22] MEDS ORDERED: ONDANSETRON 4 MG/2 ML VIAL IVP ONE (15:35)
[2022-09-22] MEDS ORDERED: LACTATED RINGERS 1,000 ML IV ONE (15:35)
[2022-09-22] MEDS ORDERED: PROPOFOL 10 MG/ML 20 ML VIAL IV ONE (16:10)
[2022-09-22] MEDS ORDERED: HYDROmorphone (PF) 1 MG/ML ONE (16:10)
[2022-09-22] MEDS ORDERED: fentaNYL (PF) 50 MCG/ML 2 ML AMP ONE (16:10)
[2022-09-22] MEDS ORDERED: LIDOCAINE 2% INJ 20 MG/ML (2 ML VIAL) ONE (16:10)
[2022-09-22] MEDS ORDERED: MIDAZOLAM 2 MG/2 ML VIAL ONE (16:10)
--- NOTE | 2022-09-22 17:15 | P.OP ---
Date of Procedure: 09/22/22 Description of Procedure: Preoperative diagnosis: Left lower extremity wound Postoperative diagnosis: Same Procedure: Sharp excisional debridement of left lower extremity wound to the level of the dermis 17 x 10 x 0.2 cm Surgeon: Tamiko Pizano D.O. EBL: 5 mL IV fluids: See records Urine output: Not measured Drains: None Complications: None immediately apparent Condition: Stable to recovery Operative indication and findings: Patient is a 61-year-old male appearing much older than stated age with multiple chronic comorbidities who presented with some coloration changes and a wound to his left lower extremity. Due to the chronic appearing nature of the wound, we were asked to debride this in the op erating suite. Risks and benefits were discussed. The patient seemingly understood and did wish to proceed. Procedure in detail: Patient was taken to the operative suite and placed in supine position under left lower extremity was prepped and draped in usual sterile fashion. A preprocedure timeout was performed, all parties were in agreement. Using forceps and knife, the eschar portion of the wound was removed, there was significant adherence of the skin. The wound itself did not appear to traverse depth. After the hardened eschar was removed, the resultant wound had some yellowish areas which were debrided with curettes. The wound itself later 17 x 10 x 0.2 cm and was diverted to the level of the dermis. The remainder of the areas of callus and sloughing skin were cleansed. The wound was dressed. The patient was allowed to awaken from anesthesia and transferred to recovery in stable condition having tolerated the procedure well.
[2022-09-22 21:04] LABS: Chol/HDL Ratio 2.46 Ratio; LDL Cholesterol,Calculated 37.5 mg/dL (0.0-131.0)
[2022-09-23] MEDS: MORPHINE SULFATE 4 MG/ML SYRINGE IV PRN ×3 (02:23→11:49)
[2022-09-23] MEDS: SODIUM CHLORIDE 0.9% 1,000 ML IV SCH ×3 (04:25→13:37)
[2022-09-23] MEDS: HYDROcodone/APAP 5-325MG 1 EACH TAB PO PRN ×2 (04:42→13:36)
[2022-09-23] MEDS ORDERED: VANCOMYCIN TROUGH DUE 1 EACH MISC MISCELLANE ONE (05:00)
[2022-09-23] MEDS: VANCOMYCIN 1,250 MG in SODIUM CHLORIDE 0.9% 250 ML IVPB SCH ×2 (06:39→13:36)
[2022-09-23 07:57] VITALS: RESP 18; TEMP 98.5
[2022-09-23] MEDS: FOLIC ACID 1 MG TAB PO SCH (08:31)
[2022-09-23] MEDS: NICOTINE 21MG/24HR PATCH TRANSDERM SCH (08:31)
[2022-09-23] MEDS: THIAMINE 100 MG TAB PO SCH (08:31)
[2022-09-23] MEDS: HEPARIN SODIUM,PORCINE/PF 5,000 UNIT/0.5 ML SYRINGE SQ SCH ×2 (08:31→14:51)
[2022-09-23 08:33] LABS: African American GFR (CKD) >90 (>60 ml/min/1.73 sqM); Anion Gap 9 mmol/L; Blood Urea Nitrogen 14 mg/dL (9-20); Calcium 7.9 mg/dL (8.4-10.2); Carbon Dioxide 19 mmol/L (22-30); Chloride 107 mmol/L (98-107); Glucose 94 mg/dL (74-99); Non-African American GFR(CKD) >90 (>60 ml/min/1.73 sqM); Potassium 4.4 mmol/L (3.5-5.1); Sodium 135 mmol/L (137-145)
[2022-09-23 11:07] LABS: Basophils # (A) 0.08 X 10*3/uL (0.00-0.10); Basophils % (A) 0.9 %; Eosinophils # (A) 0.01 X 10*3/uL (0.04-0.35); Eosinophils % (A) 0.1 %; HCT 32.7 % (39.6-50.0); HGB 10.7 g/dL (13.0-17.0); Immature Grans, Automated 0.6 %; Lymphocytes # (A) 1.29 X 10*3/uL (0.90-5.00); Lymphocytes % (A) 14.2 %; MCH 33.1 pg (27.0-32.0); MCHC 32.7 g/dL (32.0-37.0); MCV 101.2 fL (80.0-97.0); Mean Platelet Volume 11.5 fL (9.5-12.2); Monocytes # (A) 0.78 X 10*3/uL (0.20-1.00); Monocytes % (A) 8.6 %; NRBC Per 100 WBC 0 /100 WBCS (0.0-0.0); Neutrophils # (A) 6.88 X 10*3/uL (1.80-7.70); Neutrophils % (A) 75.6 %; Platelet Count 145 X 10*3/uL (140-440); RBC 3.23 X 10*6/uL (4.40-5.60); RDW 14.2 % (11.5-14.5); WBC 9.09 X 10*3/uL (4.50-10.00)
[2022-09-23 12:33] VITALS: BP 106/64; PULSE 82
--- NOTE | 2022-09-23 13:09 | P.DS ---
Providers Date of admission: 09/21/22 15:56 Attending physician: Ember Luke DO Consults: 09/21/22 19:24 Consult Physician Routine Consulting Provider: Tamiko Pizano Consult Reason/Comments: symptomatic PAD Do you want consulting provider notified?: Yes Consult Physician Routine Consulting Provider: Maurice Evangelista Consult Reason/Comments: L2 compression Fx Do you want consulting provider notified?: Yes Primary care physician: Bartolo Cortes MD Hospital Course: Discharge Diagnosis: Left lower limb ischemia withdry gangrene, symptomatic PAD Intractable low back pain with L2 acute compression fracture Hypovolemic hyponatremia, improving Nicotine dependency Alcohol dependency with impending withdrawal Hospital Course: 61-year-old male with nicotine and alcohol dependency who presented to the ER with complaints of bilateral lower extremity pain. On arrival his vital signs were within normal limits. Laboratory analysis was remarkable for a carbon dioxide of 18, sodium of 127, total bilirubin of 1.9. He was found to have an acute L2 compression fracture and probable dry gangrene of the left lower extremity. He was started on vanco and pain medications and arrangement were made for admission. Surgery was consulted, surgical debridement was done. Low probability of infected gangrene. Surgery would prefer patient to see wound care. Patient also being discharged on oral antibiotics for short course. Hyponatremia improved with IV fluids. Orthopedic surgery was consulted. Not recommending any surgical interventions. Pertinent Imaging: Chest x-ray showed no acute process. Left foot x-ray-no acute fracture or dislocation, moderate to large sized inferior calcaneal spur Tib-fib x-ray on the right-no acute process Lumbar x-ray-acute appearing L4 compression fracture, further evaluation with MRI recommended, multiple compression deformities which are age intermediate throughout the lower thoracic and lumbar spine Large, the venous Doppler-no evidence of acute DVT in either lower extremity, enlarged lymph nodes left groin largest 3.5 cm Arterial Dopplers-toe brachial index right 1.13, left 0.93 Thoracic/lumbar spine CT shows subacute/chronic compression fracture involving superior endplate of L1 and L4 Patient seen and examined at bedside. Vital signs reviewed and stable. General: nontoxic, no distress, appears at stated age Derm: warm, dry Head: atraumatic, normocephalic, symmetric Eyes: EOMI, no lid lag, anicteric sclera Mouth: no lip lesion, mucus membranes moist Cardiovascular: S1S2 reg, no murmur Lungs: CTA bilateral, no rhonchi, no rales , no accessory muscle use Abdominal: soft, nontender to palpation, no guarding, no appreciable organomegaly Ext: no gross muscle atrophy, no edema, no contractures Neuro: CN II-XI grossly intact, no focal neuro deficits Psych: Alert, oriented, appropriate affect A total of 36 minutes of time were spent preparing this complex discharge summary. Patient was discharged on 09/23/22 at 13:05. Patient Condition at Discharge: Stable Plan - Discharge Summary New Discharge Prescriptions: New Folic Acid 1 mg PO DAILY #90 tab Acetaminophen Tab [Tylenol] 650 mg PO Q6HR PRN #90 tab PRN Reason: Mild Pain Or Fever > 100.5 Doxycycline [Vibramycin] 100 mg PO BID 7 Days #14 capsule Thiamine [Vitamin B-1] 100 mg PO DAILY #90 tab Discharge Medication List Acetaminophen Tab [Tylenol] 650 mg PO Q6HR PRN #90 tab 09/23/22 [Rx] Doxycycline [Vibramycin] 100 mg PO BID 7 Days #14 capsule 09/23/22 [Rx] Folic Acid 1 mg PO DAILY #90 tab 09/23/22 [Rx] Thiamine [Vitamin B-1] 100 mg PO DAILY #90 tab 09/23/22 [Rx] Follow up Appointment(s)/Referral(s): Elizabeth Zayas, NANCI [Nurse Practitioner] - 1 Week (Follow up in office regarding acute L4 compression fracture) None,Stated [REFERRING] - 1-2 days [facility] [NON-STAFF] - 1 Week Patient Instructions/Handouts: Seizure/Epilepsy Discharge Instructions & Follow-Up, Abuse of Alcohol (DC), Chronic Wound Care (DC) Activity/Diet/Wound Care/Special Instructions: Please see your PCP, Orthospine surgery, and wound care. Discharge Disposition: HOME SELF-CARE
--- NOTE | 2022-09-26 12:24 | US ---
EXAMINATION TYPE: US arterial LE single level DATE OF EXAM: 09/21/2022 3:07 PM CLINICAL INDICATION: Male, 61 years old with history of eval for adequate dp and tp pulses. also pop. LLE; discoloration bilateral lower legs, worse on the left, redness. wound/discoloration - brownish left ankle for 2 months History of: Smoker: current Hypertension: no Diabetic: no Hyperlipidemia: no TIA/CVA: no Previous Vascular Surgery: no CAD: OH: no Vascular Ulcers: Claudication: no Gangrene: Doppler Waveforms: Predominantly monophasic bilaterally. Right Brachial Pressure: 118 Left Brachial Pressure: Ankle-Brachial Indices: Right: 1.25 Left: 1.32 Toe Brachial Indices: Right: 1.13 Left: 0.93 IMPRESSION: Normal bilateral REJI and TBI values. Loss of phasicity is nonspecific.
== END 2022-09-23 17:25 | disposition home or self-care (01) | DRG 197 ==
LOC: EC 11:18 → 5NMEDONC 15:56
PROVIDERS: ADMIT Internal Medicine; ATTEND Internal Medicine
PROC: 0HBNXZZ Excision of Left Foot Skin, External Approach (ICD-10-PCS; principal; 2022-09-22 07:30)
DX: I70.262 Atherosclerosis of native arteries of extremities with gangrene, left leg (principal); M48.56XA Collapsed vertebra, not elsewhere classified, lumbar region, initial encounter for fracture; F17.210 Nicotine dependence, cigarettes, uncomplicated; Z59.00 Homelessness unspecified; G89.29 Other chronic pain; Z28.310 Unvaccinated for COVID-19; Z28.21 Immunization not carried out because of patient refusal; F10.239 Alcohol dependence with withdrawal, unspecified; Y90.0 Blood alcohol level of less than 20 mg/100 ml; E87.1 Hypo-osmolality and hyponatremia; M48.04 Spinal stenosis, thoracic region; M48.54XA Collapsed vertebra, not elsewhere classified, thoracic region, initial encounter for fracture; M54.10 Radiculopathy, site unspecified; Z86.718 Personal history of other venous thrombosis and embolism
CPT/HCPCS: 36415; 71046; 72070; 72100; 72128; 72131; 80048; 80053; 80061; 80202; 80320; 81001; 83036; 83605; 83735; 83930; 83935; 84443; 85025; 85027; 85610; 85730; 87070; 87075; 87205; 90471; 90715; 93005; 93922; 93970; 96365; 96366; 96372; 96375; 96376; 99285

== ENCOUNTER 2022-10-17 10:47 | Observation (INO) | payer OTHER ==
--- NOTE | 2022-10-17 11:38 | ED ---
General Adult HPI - General Chief complaint: Weakness Stated complaint: Infection Time Seen by Provider: 10/17/22 11:03 Source: EMS Mode of arrival: EMS - History of Present Illness Initial comments: Dictation was produced using [employer] dictation software. please excuse any g rammatical, word or spelling errors. Chief Complaint: 62-year-old male brought to the emergency department for medication noncompliance and worsening debility History of Present Illness: Patient 62-year-old who has past medical history of chronic wounds, DVTs. States that he is here because of back pain. Patient states that he is unable perform his activities of daily living due to feeling significantly weak being more debilitated. According to nurse receive report from EMS. EMS was called because patient is not taking care for himself like he supposed to. Patient has a chest pain. He allegedly has been stooling on himself as he does not want to get up to go to the bathroom. No shortness of breath. States that his back pain is secondary from a fall from the past. The ROS documented in this emergency department record has been reviewed and confirmed by me. Those systems with pertinent positive or negative responses have been documented in the HPI. All other systems are other negative and/or noncontributory. - Related Data Home Medications Medication Instructions Recorded Confirmed Amoxic-Pot Clav 875-125Mg 1 tab PO TID 10/17/22 10/17/22 [Augmentin 875-125] Cyanocobalamin (Vitamin B-12) 1,000 mcg PO DAILY 10/17/22 10/17/22 [Vitamin B-12] HYDROcodone/APAP 7.5-325MG [[place] 1 tab PO QID PRN 10/17/22 10/17/22 7.5-325] Previous Rx's Medication Instructions Recorded Acetaminophen Tab [Tylenol] 650 mg PO Q6HR PRN #90 tab 09/23/22 Folic Acid 1 mg PO DAILY #90 tab 09/23/22 Allergies Allergy/AdvReac Type Severity Reaction Status Date / Time Penicillins Allergy Rash/Hives Verified 10/17/22 12:38 Review of Systems ROS Statement: Those systems with pertinent positive or pertinent negative responses have been documented in the HPI. ROS Other: All systems not noted in ROS Statement are negative. Past Medical History Past Medical History: Deep Vein Thrombosis (DVT) Additional Past Medical History / Comment(s): rt arm dvt History of Any Multi-Drug Resistant Organisms: None Reported Past Surgical History: No Surgical Hx Reported Past Anesthesia/Blood Transfusion Reactions: No Reported Reaction Past Psychological History: No Psychological Hx Reported Smoking Status: Current every day smoker Past Alcohol Use History: Daily, Heavy Past Drug Use History: None Reported General Exam - General Exam Comments Initial Comments: PHYSICAL EXAM: General Impression: Alert and oriented x3, not in acute distress, disheveled, malodorous, cachectic HEENT: Normocephalic atraumatic, extra-ocular movements intact, pupils equal and reactive to light bilaterally, mucous membranes moist. Cardiovascular: Heart regular rate and rhythm Chest: Able to complete full sentences, no retractions, no tachypnea Abdomen: abdomen soft, non-tender, non-distended, no organomegaly Musculoskeletal: Pulses present and equal in all extremities, no peripheral edema Motor: no focal deficits noted Neurological: CN II-XII grossly intact, no focal motor or sensory deficits noted Skin: Intact with no visualized rashes Psych: Normal affect and mood Course Vital Signs 10/17/22 10/17/22 10:54 11:00 Temperature 97.9 F Pulse Rate 75 74 Respiratory 18 18 Rate Blood Pressure 90/76 94/73 O2 Sat by Pulse 97 97 Oximetry - Reevaluation(s) Reevaluation #1: 10/17/22 13:10 More history was obtained from family states that patient is noncompliant with his medications is not caring for himself. He refusing to eat or drink anything. They were concerned for his mental office and felt that patient be a candidate for psychiatric consultation because they feel like he is losing the will to live. Rectal exam was performed after hemoglobin was found to be low level IX.7. Rectal exam showed no gross blood. No melanotic stool. Stool occult card was sent to the lab for evaluation. He did report having some black stools. Family reports he was just discharged from [facility] 6 days ago after being admitted for a lower extremity wound. EKG Findings - EKG Comments: EKG Findings:: My EKG interpretation: Ventricular rate 64, sinus rhythm,. 132, QRS 90, QTC 410. No [place] prolongation, no QTC prolongation, no ST or T-wave changes noted. Overall, this EKG is unremarkable Medical Decision Making - Medical Decision Making Was pt. sent in by a medical professional or institution (, DYLAN, ROADMASTER, urgent c are, hospital, or long term...) When possible be specific @ -No Did you speak to anyone other than the patient for history (EMS, parent, family, police, friend...)? What history was obtained from this source @ -Spoke with family members at the bedside states that is not caring for himself Did you review nursing and triage notes (agree or disagree)? Why? @ -I reviewed and agree with nursing and triage notes Were old charts reviewed (outside hosp., previous admission, EMS record, old EKG, old radiological studies, urgent care reports/EKG's, long term records)? Report findings @ -No old charts were reviewed Differential Diagnosis (chest pain, altered mental status, abdominal pain women, abdominal pain men, vaginal bleeding, musculoskeletal, weakness, fever, dyspnea, syncope, headache, dizziness, GI bleed, back pain, seizure, CVA, palpatations, mental health)? @ -Differential Weakness: Hypoglycemia, shock, sepsis, hyponatremia, anemia, infection, DE, ETOH, adverse medicine reaction, overdose, stroke, this is not meant to be an all-inclusive list. EKG interpreted by me (3pts min.). @ -See above X-rays interpreted by me (1pt min.). @ -None done CT interpreted by me (1pt min.). @ -None done U/S interpreted by me (1pt. min.). @ -None done What testing was considered but not performed or refused? (CT, X-rays, U/S, labs)? Why? @ -None What meds were considered but not given or refused? Why? @ -None Did you discuss the management of the patient with other professionals (professionals i.e. , DYLAN, ROADMASTER, lab, RT, psych nurse, social security benefits interviewer, bellstand attendant, teacher, property disposal officer, case making machine operator)? Give summary @ -Case discussed with Dr. Sainz for admission. Labs and extremity exam was discussed. Was smoking cessation discussed for >3mins.? @ -No Was critical care preformed (if so, how long)? @ -No Were there social determinants of health that impacted care today? How? (Homelessness, low income, unemployed, alcoholism, drug addiction, transport ation, low edu. Level, literacy, decrease access to med. care, custodial, rehab)? @ -No Was there de-escalation of care discussed even if they declined (Discuss DNR or withdrawal of care, Hospice)? DNR status @ -No What co-morbidities impacted this encounter? (DM, HTN, Smoking, COPD, CAD, Cancer, CVA, ARF, Chemo, Hep., AIDS, mental health diagnosis, sleep apnea, morbid obesity)? @ -None Was patient admitted / discharged? Hospital course, mention meds given and route, prescriptions, significant lab abnormalities, going to OR and other pertinent info. @ -2-year-old male presents emergency department for grave disability. Patient does not have a good social situation at home. Labs were ordered. He will 9.7. Most recent hemoglobin is 11.5. Stool occult blood is negative Patient denies symptoms of GI bleed. Metabolic panel within acceptable limits. Calcium 7.4. Patient be admitted for placement. Undiagnosed new problem with uncertain prognosis? @ -No Drug Therapy requiring intensive monitoring for toxicity (Heparin, Nitro, Insulin, Cardizem)? @ -No Were any procedures done? @ -No Diagnosis/symptom? Acute, or Chronic, or Acute on Chronic? Uncomplicated (without systemic symptoms) or Complicated (systemic symptoms)? @ -1. Gravely disabled Side effects of treatment? @ -No Exacerbation, Progression, or Severe Exacerbation? @ -No Poses a threat to life or bodily function? How? (Chest pain, USA, DE, pneumonia, PE, COPD, DKA, ARF, appy, cholecystitis, CVA, Diverticulitis, Homicidal, Suicidal, threat to staff... and all critical care pts) @ -yes - Lab Data Result diagrams: 10/17/22 12:09 10/17/22 12:09 Lab Results 10/17/22 10/17/22 10/17/22 Range/Units 12:09 12:09 13:12 WBC 5.6 (3.8-10.6) k/uL RBC 2.74 L (4.30-5.90) m/uL Hgb 9.7 L D (13.0-17.5) gm/dL Hct 29.7 L (39.0-53.0) % MCV 108.2 H D (80.0-100.0) fL MCH 35.4 H (25.0-35.0) pg MCHC 32.7 (31.0-37.0) g/dL RDW 16.1 H (11.5-15.5) % Plt Count 147 L (150-450) k/uL MPV 9.6 Neutrophils % (Manual) 81 % Lymphocytes % (Manual) 13 % Monocytes % (Manual) 4 % Eosinophils % (Manual) 2 % Neutrophils # (Manual) 4.54 (1.3-7.7) k/uL Lymphocytes # (Manual) 0.73 L (1.0-4.8) k/uL Monocytes # (Manual) 0.22 (0-1.0) k/uL Eosinophils # (Manual) 0.11 (0-0.7) k/uL Nucleated RBCs 0 (0-0) /100 WBC Manual Slide Review Performed Hypochromasia Slight Anisocytosis Slight Macrocytosis Marked A Sodium 137 (137-145) mmol/L Potassium 3.3 L (3.5-5.1) mmol/L Chloride 110 H (98-107) mmol/L Carbon Dioxide 25 (22-30) mmol/L Anion Gap 2 mmol/L BUN 8 L (9-20) mg/dL Creatinine 0.66 (0.66-1.25) mg/dL Est GFR (CKD-EPI)AfAm >90 (>60 ml/min/1.73 sqM) Est GFR (CKD-EPI)NonAf >90 (>60 ml/min/1.73 sqM) Glucose 94 (74-99) mg/dL Calcium 7.4 L (8.4-10.2) mg/dL Stool Occult Blood Negative (Negative) Disposition Clinical Impression: Gravely disabled Disposition: ADMITTED IP TO THIS [facility] Condition: Fair Referrals: Homero Sainz MD [Primary Care Provider] - 1-2 days Decision Time: 13:32
[2022-10-17 12:27] LABS: African American GFR (CKD) >90 (>60 ml/min/1.73 sqM); Anion Gap 2 mmol/L; Blood Urea Nitrogen 8 mg/dL (9-20); Calcium 7.4 mg/dL (8.4-10.2); Carbon Dioxide 25 mmol/L (22-30); Chloride 110 mmol/L (98-107); Glucose 94 mg/dL (74-99); Non-African American GFR(CKD) >90 (>60 ml/min/1.73 sqM); Potassium 3.3 mmol/L (3.5-5.1); Sodium 137 mmol/L (137-145)
[2022-10-17 12:36] LABS: Anisocytosis Slight; HCT 29.7 % (39.0-53.0); Hypochromasia Slight; MCH 35.4 pg (25.0-35.0); MCHC 32.7 g/dL (31.0-37.0); MCV 108.2 fL (80.0-100.0); Macrocytosis Marked; Mean Platelet Volume 9.6; Platelet Count 147 k/uL (150-450); RBC 2.74 m/uL (4.30-5.90); RDW 16.1 % (11.5-15.5); WBC 5.6 k/uL (3.8-10.6)
[2022-10-17 12:49] LABS: HGB 9.7 gm/dL (13.0-17.5)
[2022-10-17 13:10] LABS: Eosinophils # (M) 0.11 k/uL (0-0.7); Lymphocytes # (M) 0.73 k/uL (1.0-4.8); Monocytes # (M) 0.22 k/uL (0-1.0); Neutrophils # (M) 4.54 k/uL (1.3-7.7); Neutrophils % (M) 81 %; Nucleated Red Blood Cells 0 /100 WBC (0-0); Total Cells Counted 100
[2022-10-17] MEDS ORDERED: NALOXONE 0.4 MG/ML 1 ML VIAL IV PRN (14:00)
[2022-10-17] MEDS ORDERED: HYDROcodone/APAP 7.5-325MG 1 EACH TAB PO ONE (15:27)
[2022-10-17] MEDS ORDERED: ACETAMINOPHEN TAB 325 MG TAB PO PRN (15:57)
[2022-10-17] MEDS: SODIUM CHLORIDE 0.9% 1,000 ML IV SCH (19:22)
[2022-10-17] MEDS: HYDROcodone/APAP 7.5-325MG 1 EACH TAB PO PRN (21:10)
[2022-10-17] MEDS: AMOXIC-POT CLAV 875-125MG 1 EACH TAB PO SCH (21:10)
[2022-10-17] MEDS ORDERED: HYDROmorphone 1 MG/ML 1 ML SYRINGE IVP STA (23:49)
[2022-10-18] MEDS: HYDROcodone/APAP 7.5-325MG 1 EACH TAB PO PRN ×3 (04:40→17:37)
[2022-10-18] MEDS: AMOXIC-POT CLAV 875-125MG 1 EACH TAB PO SCH ×2 (08:10→20:41)
[2022-10-18] MEDS: FOLIC ACID 1 MG TAB PO SCH (08:10)
[2022-10-18 11:31] VITALS: BMI 24.5
[2022-10-18] MEDS: SODIUM CHLORIDE 0.9% 1,000 ML IV SCH (20:36)
--- NOTE | 2022-10-18 23:05 | HP ---
HISTORY AND PHYSICAL CHIEF COMPLAINT: General debility. HISTORY OF PRESENT ILLNESS: This gentleman was just discharged after he came in with an infected left foot. He has chronic alcoholism. He also smokes heavily. The foot was treated and was improved, and he was sent home. He did have 1 visit in the office, but it was clear that he was not going to be particularly compliant. Several days later, the family brought him to the emergency room stating that they could not take care of him. He does live alone. They were trying to help him and watch over him, but he is uncooperative. He is admitted for placement. REVIEW OF SYSTEMS: All he does is complains about back pain and angle for narcotics, but he has had no headaches, chest pain, shortness of breath, abdominal pain, nausea, vomiting, hematemesis, melena, hematochezia, jaundice, dysuria, frequency, incontinence, diabetes, etc. Past medical history, family history, and personal and social histories are unchanged. PHYSICAL EXAMINATION: VITAL SIGNS: Blood pressure 108/60 with a pulse of 92, respirations of 36, and he is afebrile. GENERAL: He appeared to be disheveled, slender, and poorly nourished and dehydrated. HEAD, EARS, EYES, NOSE, AND MOUTH: Unremarkable except for newly absent dentition. NECK: Neck veins are not distended. CHEST: Demonstrated increased AP diameter with poor breath sounds. CARDIAC: Normal. ABDOMEN: Flat and soft. There are no masses. EXTREMITIES: Normal except for the stasis dermatitis of the lower legs and the healing ulcer on the left foot. NEUROLOGIC: He is intact. IMPRESSION: He is admitted to the hospital with diagnoses of: 1. General debility and failure to thrive. 2. Malnutrition. 3. Dehydration. 4. Chronic obstructive pulmonary disease. 5. Alcoholism. 6. Stasis dermatitis of the lower extremities. 7. Ulcer of the left foot. PLAN: 1. Bed rest. 2. IV fluids. 3. Discharge planning. MMODL / IJN: [id number] /
--- NOTE | 2022-10-18 23:20 | PN ---
PROGRESS NOTE DATE OF SERVICE: 10/18/2022 CHIEF COMPLAINT: General debility and failure to thrive. HISTORY OF PRESENT ILLNESS: This gentleman is about the same. All he does is continues to demand narcotic pain medication. He also had a slip and fall today. PHYSICAL EXAMINATION: GENERAL: He is awake and alert. CHEST: Clear. CARDIAC: Normal. ABDOMEN: Soft and nontender. IMPRESSION: 1. General debility and failure to thrive. 2. Alcoholism. 3. Chronic obstructive pulmonary disease. 4. Malnutrition. 5. Dehydration. 6. Fall. 7. Cellulitis and dermatitis of the lower legs with ulcer of the left foot. PLAN: Continue to prepare for group home placement. MMODL / IJN: [id number] /
[2022-10-19] MEDS: HYDROcodone/APAP 7.5-325MG 1 EACH TAB PO PRN ×3 (06:42→21:28)
[2022-10-19] MEDS: FOLIC ACID 1 MG TAB PO SCH (08:52)
[2022-10-19] MEDS: SODIUM CHLORIDE 0.9% 1,000 ML IV SCH (15:13)
[2022-10-20] MEDS: HYDROcodone/APAP 7.5-325MG 1 EACH TAB PO PRN ×4 (03:12→21:35)
[2022-10-20] MEDS: FOLIC ACID 1 MG TAB PO SCH (08:34)
[2022-10-20] MEDS: SODIUM CHLORIDE 0.9% 1,000 ML IV SCH (08:34)
--- NOTE | 2022-10-20 09:21 | PN ---
PROGRESS NOTE DATE OF SERVICE: 10/19/2022 CHIEF COMPLAINT: General debility and failure to thrive with a history of cellulitis of the right foot, COPD and alcoholism. HISTORY OF PRESENT ILLNESS: This gentleman is doing fairly well except he continues to complain of his back pain. PHYSICAL EXAMINATION: VITAL SIGNS: Normal. CHEST: Clear. CARDIAC: Normal. ABDOMEN: Soft, nontender. MUSCULOSKELETAL: The right foot is dressed. IMPRESSION: 1. Cellulitis and venous stasis disease, both lower extremities with cellulitis, right foot. 2. Alcoholism. 3. Chronic obstructive pulmonary disease. 4. General debility. 5. Failure to thrive. PLAN: 1. Consult Wound Management. 2. Continue to look for discharge planning, which will be a long-term. MMODL / IJN: [id number] /
--- NOTE | 2022-10-20 11:31 | P.CONS ---
History of Present Illness - Reason for Consult Consult date: 10/20/22 wound care - History of Present Illness This is a 62-year-old patient who is was seen in the wound care center on October 05 for multiple open ulcerations to the left medial ankle, left dorsal foot, and left lateral ankle. Patient was prescribed absorptive silver to the site. Patient was unhappy that he was not given pain meds for his back pain and stated that he would not be returning. Patient did not continue with any follow-up. Patient stated that he was utilizing honey to the site and side because he did not want to use the prescribed dressing. At this time patient has a open ulceration to the left lateral malleolus measuring approximately 1.4 x 0.5 x 0.1 cm with granulation noted within the wound bed and minimal slough. Patient is reluctant to return to the wound care center if he is not going to receive pain medication Review Of Systems: Constitutional: No fever, no chills, no night sweats. No weight change. No weakness, fatigue or lethargy. No daytime sleepiness. Integumentary:reports wounds, no lesions. No rash or pruritus. No unusual bruising. No change in hair or nails. Physical exam: General Appearance: Alert, cooperative, no distress, appears stated age. Skin: See HPI all other Skin color, texture, tugor normal, no rashes or lesions. Neurologic: Alert oriented x3 Assessment: 1. 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 Nicotine independence 3. EtOH abuse 4. Protein calorie malnutrition Plan: 1.Left lateral foot: If honey gel is available: Apply honey gel, and border foam if not apply honey alginate, saline moist gaize and border foam. Change Monday, and Monday. Thank you for the consultation any questions please contact the wound care center DNP note has been reviewed and discussed with Dr. Reyes and the impression and plan of care has been directed as dictated. Past Medical History Past Medical History: Deep Vein Thrombosis (DVT) Additional Past Medical History / Comment(s): rt arm dvt History of Any Multi-Drug Resistant Organisms: None Reported Past Surgical History: No Surgical Hx Reported Past Anesthesia/Blood Transfusion Reactions: No Reported Reaction Past Psychological History: No Psychological Hx Reported Smoking Status: Current every day smoker Past Alcohol Use History: Daily, Heavy Past Drug Use History: None Reported Medications and Allergies Home Medications Medication Instructions Recorded Confirmed Type Acetaminophen Tab [Tylenol] 650 mg PO Q6HR PRN #90 tab 09/23/22 10/17/22 Rx Folic Acid 1 mg PO DAILY #90 tab 09/23/22 10/17/22 Rx Amoxic-Pot Clav 875-125Mg 1 tab PO TID 10/17/22 10/17/22 History [Augmentin 875-125] Cyanocobalamin (Vitamin B-12) 1,000 mcg PO DAILY 10/17/22 10/17/22 History [Vitamin B-12] HYDROcodone/APAP 7.5-325MG [[place] 1 tab PO QID PRN 10/17/22 10/17/22 History 7.5-325] Allergies Allergy/AdvReac Type Severity Reaction Status Date / Time Penicillins Allergy Rash/Hives Verified 10/17/22 12:38 Physical Exam Vitals: Vital Signs Temp Pulse Resp BP Pulse Ox 10/20/22 07:23 96.7 F L 67 16 137/80 95 10/20/22 07:17 96.7 F L 67 16 137/80 95 10/20/22 01:59 98.0 F 63 16 141/80 96 10/19/22 19:57 98.3 F 64 19 134/82 96 10/19/22 12:48 98.0 F 67 19 129/83 97 Intake and Output 10/19/22 10/20/22 10/20/22 22:59 06:59 14:59 Other: Voiding Method Toilet Toilet Urinal Urinal # Voids 1 1 # Bowel Movements 1 Results CBC & Chem 7: 10/17/22 12:09 10/17/22 12:09 Assessment and Plan (1) Non-pressure chronic ulcer of other part of left foot with fat layer exposed Current Visit: Yes Status: Acute Code(s): L97.522 - NON-PRS CHRONIC ULCER OTH PRT LEFT FOOT W FAT LAYER EXPOSED SNOMED Code(s): 02331493327890875 (2) Nicotine dependence, cigarettes, uncomplicated Current Visit: Yes Status: Acute Code(s): F17.210 - NICOTINE DEPENDENCE, CIGARETTES, UNCOMPLICATED SNOMED Code(s): 93961882 (3) Alcohol abuse, uncomplicated Current Visit: Yes Status: Acute Code(s): F10.10 - ALCOHOL ABUSE, UNCOMPLICATED SNOMED Code(s): 62090729 (4) Unspecified protein-calorie malnutrition Current Visit: Yes Status: Acute Code(s): E46 - UNSPECIFIED PROTEIN-CALORIE MALNUTRITION SNOMED Code(s): 252367288
[2022-10-20] MEDS: THIAMINE 100 MG TAB PO SCH (17:07)
--- NOTE | 2022-10-21 01:39 | PN ---
PROGRESS NOTE CHIEF COMPLAINT: General debility and failure to thrive. HISTORY OF PRESENT ILLNESS: This gentleman is doing fairly well. [facility] placement is being sought. PHYSICAL EXAMINATION: CHEST: Clear. CARDIAC: Normal. ABDOMEN: Soft, nontender. EXTREMITIES: Right foot is dressed. IMPRESSION: 1. General debility and failure to thrive. 2. Alcoholism. 3. Chronic obstructive pulmonary disease. 4. Stasis dermatitis with ulcers of the right foot. PLAN: 1. Continue to look for discharge planning. 2. Consult Wound Care for the foot. MMODL / IJN: [id number] /
[2022-10-21 02:45] LABS: % Iron Saturation 27.64 (15.00-50.00)
[2022-10-21] MEDS: HYDROcodone/APAP 7.5-325MG 1 EACH TAB PO PRN ×3 (03:18→16:55)
[2022-10-21] MEDS: POTASSIUM CHLORIDE ER 20 MEQ TAB.ER PO SCH (07:49)
[2022-10-21] MEDS: THIAMINE 100 MG TAB PO SCH ×2 (07:49→16:52)
[2022-10-21] MEDS: FOLIC ACID 1 MG TAB PO SCH (07:49)
[2022-10-21] MEDS: SODIUM CHLORIDE 0.9% 1,000 ML IV SCH (15:44)
[2022-10-22] MEDS: HYDROcodone/APAP 7.5-325MG 1 EACH TAB PO PRN ×3 (05:54→22:41)
[2022-10-22] MEDS: POTASSIUM CHLORIDE ER 20 MEQ TAB.ER PO SCH (09:32)
[2022-10-22] MEDS: THIAMINE 100 MG TAB PO SCH ×2 (09:32→17:28)
[2022-10-22] MEDS: FOLIC ACID 1 MG TAB PO SCH (09:32)
--- NOTE | 2022-10-22 18:07 | P.PN ---
Subjective Progress Note Date: 10/21/22 62-year-old patient who is was seen in the wound care center on October 05 for multiple open ulcerations to the left medial ankle, left dorsal foot, and left lateral ankle. Patient was prescribed absorptive silver to the site. Patient was unhappy that he was not given pain meds for his back pain and stated that he would not be returning. Patient did not continue with any follow-up. Patient stated that he was utilizing honey to the site and side because he did not want to use the prescribed dressing. At this time patient has a open ulceration to the left lateral malleolus measuring approximately 1.4 x 0.5 x 0.1 cm with granulation noted within the wound bed and minimal slough. Patient is reluctant to return to the wound care center if he is not going to receive pain medication Objective - Vital Signs Vital signs: Vital Signs Temp 97.5 F L 10/21/22 07:59 Pulse 70 10/21/22 07:59 Resp 17 10/21/22 07:59 BP 154/88 10/21/22 07:59 Pulse Ox 93 L 10/21/22 07:59 FiO2 Intake & Output 10/20/22 10/21/22 10/21/22 18:59 06:59 18:59 Other: Voiding Method Toilet Toilet Urinal Urinal # Voids 5 # Bowel Movements 1 - Exam PHYSICAL EXAMINATION: GENERAL: The patient is alert and oriented x3, not in any acute distress. Well developed, well nourished. HEENT: Pupils are round and equally reacting to light. EOMI. No scleral icterus. No conjunctival pallor. Normocephalic, atraumatic. No pharyngeal erythema. No thyromegaly. CARDIOVASCULAR: S1 and S2 present. No murmurs, rubs, or gallops. PULMONARY: Chest is clear to auscultation, no wheezing or crackles. ABDOMEN: Soft, nontender, nondistended, normoactive bowel sounds. No palpable organomegaly. MUSCULOSKELETAL: No joint swelling or deformity. EXTREMITIES: No cyanosis, clubbing, or pedal edema. NEUROLOGICAL: Gross neurological examination did not reveal any focal deficits. SKIN: No rashes. - Labs CBC & Chem 7: 10/17/22 12:09 10/17/22 12:09 Labs: Abnormal Lab Results - Last 24 Hours (Table) 10/20/22 Range/Units 16:51 Iron 48 L (65-175) ug/dL TIBC 172 L (228-460) ug/dL Transferrin 123.0 L (204.0-354.0) mg/dL Assessment and Plan Assessment: Generalized debility and adult failure to thrive Chronic alcoholism COPD; not in exacerbation Stasis dermatitis with ulcers of right foot -- Patient continues to be followed by wound care service - Plan is to discharge to skilled rehab - Case management on board for discharge planning
--- NOTE | 2022-10-22 18:09 | P.PN ---
Subjective Progress Note Date: 10/22/22 62-year-old patient who is was seen in the wound care center on October 05 for multiple open ulcerations to the left medial ankle, left dorsal foot, and left lateral ankle. Patient was prescribed absorptive silver to the site. Patient was unhappy that he was not given pain meds for his back pain and stated that he would not be returning. Patient did not continue with any follow-up. Patient stated that he was utilizing honey to the site and side because he did not want to use the prescribed dressing. At this time patient has a open ulceration to the left lateral malleolus measuring approximately 1.4 x 0.5 x 0.1 cm with granulation noted within the wound bed and minimal slough. Patient is reluctant to return to the wound care center if he is not going to receive pain medication 24 hour interval change 10/22/2022 Patient is seen and evaluated in room at bedside Vital signs are reviewed and remained stable with temperature of 98.2, pulse 72, respiration 18 and blood pressure 143/78, O2 saturation 96% on room air Wound Care is following closely with open ulcerations left lower extremity - Patient remains on thiamine and folic acid given history of alcoholism -- Case management on board for discharge planning Objective - Vital Signs Vital signs: Vital Signs Temp 98.2 F 10/22/22 07:26 Pulse 72 10/22/22 08:00 Resp 18 10/22/22 08:00 BP 143/78 10/22/22 07:26 Pulse Ox 96 10/22/22 07:26 FiO2 Intake & Output 10/21/22 10/22/22 10/22/22 18:59 06:59 18:59 Other: Voiding Method Toilet Urinal # Voids 4 1 # Bowel Movements 1 1 - Exam PHYSICAL EXAMINATION: GENERAL: The patient is alert and oriented x3, not in any acute distress. Well developed, well nourished. HEENT: Pupils are round and equally reacting to light. EOMI. No scleral icterus. No conjunctival pallor. Normocephalic, atraumatic. No pharyngeal erythema. No thyromegaly. CARDIOVASCULAR: S1 and S2 present. No murmurs, rubs, or gallops. PULMONARY: Chest is clear to auscultation, no wheezing or crackles. ABDOMEN: Soft, nontender, nondistended, normoactive bowel sounds. No palpable organomegaly. MUSCULOSKELETAL: No joint swelling or deformity. EXTREMITIES: No cyanosis, clubbing, or pedal edema. NEUROLOGICAL: Gross neurological examination did not reveal any focal deficits. SKIN: No rashes. - Labs CBC & Chem 7: 10/17/22 12:09 10/17/22 12:09 Assessment and Plan Assessment: Generalized debility and adult failure to thrive Chronic alcoholism COPD; not in exacerbation Stasis dermatitis with ulcers of right foot -- Patient continues to be followed by wound care service - Plan is to discharge to skilled rehab - Case management on board for discharge planning
[2022-10-22] MEDS: SODIUM CHLORIDE 0.9% 1,000 ML IV SCH (20:13)
[2022-10-23] MEDS: HYDROcodone/APAP 7.5-325MG 1 EACH TAB PO PRN ×3 (05:02→17:32)
[2022-10-23] MEDS: THIAMINE 100 MG TAB PO SCH ×2 (08:57→17:32)
[2022-10-23] MEDS: FOLIC ACID 1 MG TAB PO SCH (08:57)
[2022-10-23] MEDS: POTASSIUM CHLORIDE ER 20 MEQ TAB.ER PO SCH (08:57)
[2022-10-23] MEDS: SODIUM CHLORIDE 0.9% 1,000 ML IV SCH (17:36)
--- NOTE | 2022-10-23 17:40 | P.PN ---
Subjective Progress Note Date: 10/23/22 62-year-old patient who is was seen in the wound care center on October 05 for multiple open ulcerations to the left medial ankle, left dorsal foot, and left lateral ankle. Patient was prescribed absorptive silver to the site. Patient was unhappy that he was not given pain meds for his back pain and stated that he would not be returning. Patient did not continue with any follow-up. Patient stated that he was utilizing honey to the site and side because he did not want to use the prescribed dressing. At this time patient has a open ulceration to the left lateral malleolus measuring approximately 1.4 x 0.5 x 0.1 cm with granulation noted within the wound bed and minimal slough. Patient is reluctant to return to the wound care center if he is not going to receive pain medication 24 hour interval change 10/23/2022 Patient is seen and evaluated in room at bedside Vital signs are reviewed and remained stable Wound Care is following closely with open ulcerations left lower extremity - Patient remains on thiamine and folic acid given history of alcoholism -- Case management on board for discharge planning; patient awaits placement to SNF versus ECF Objective - Vital Signs Vital signs: Vital Signs Temp 97.6 F 10/23/22 07:07 Pulse 61 10/23/22 07:07 Resp 15 10/23/22 07:07 BP 150/83 10/23/22 07:07 Pulse Ox 95 10/23/22 07:07 FiO2 Intake & Output 10/22/22 10/23/22 10/23/22 18:59 06:59 18:59 Output Total 200 270 Balance -200 -270 Output: Urine 200 270 Other: Voiding Method Toilet Toilet Urinal Urinal Urinal - Exam PHYSICAL EXAMINATION: GENERAL: The patient is alert and oriented x3, not in any acute distress. Well developed, well nourished. HEENT: Pupils are round and equally reacting to light. EOMI. No scleral icterus. No conjunctival pallor. Normocephalic, atraumatic. No pharyngeal erythema. No thyromegaly. CARDIOVASCULAR: S1 and S2 present. No murmurs, rubs, or gallops. PULMONARY: Chest is clear to auscultation, no wheezing or crackles. ABDOMEN: Soft, nontender, nondistended, normoactive bowel sounds. No palpable organomegaly. MUSCULOSKELETAL: No joint swelling or deformity. EXTREMITIES: No cyanosis, clubbing, or pedal edema. NEUROLOGICAL: Gross neurological examination did not reveal any focal deficits. SKIN: No rashes. - Labs CBC & Chem 7: 10/17/22 12:09 10/17/22 12:09 Assessment and Plan Assessment: Generalized debility and adult failure to thrive Chronic alcoholism COPD; not in exacerbation Stasis dermatitis with ulcers of right foot -- Patient continues to be followed by wound care service - Plan is to discharge to skilled rehab - Case management on board for discharge planning
[2022-10-24] MEDS: HYDROcodone/APAP 7.5-325MG 1 EACH TAB PO PRN ×5 (00:01→23:03)
[2022-10-24] MEDS: FOLIC ACID 1 MG TAB PO SCH (07:38)
[2022-10-24] MEDS: POTASSIUM CHLORIDE ER 20 MEQ TAB.ER PO SCH (07:38)
[2022-10-24] MEDS: THIAMINE 100 MG TAB PO SCH ×2 (07:38→17:05)
--- NOTE | 2022-10-24 15:59 | P.PN ---
Subjective Progress Note Date: 10/24/22 62-year-old patient who is was seen in the wound care center on October 05 for multiple open ulcerations to the left medial ankle, left dorsal foot, and left lateral ankle. Patient was prescribed absorptive silver to the site. Patient was unhappy that he was not given pain meds for his back pain and stated that he would not be returning. Patient did not continue with any follow-up. Patient stated that he was utilizing honey to the site and side because he did not want to use the prescribed dressing. At this time patient has a open ulceration to the left lateral malleolus measuring approximately 1.4 x 0.5 x 0.1 cm with granulation noted within the wound bed and minimal slough. Patient is reluctant to return to the wound care center if he is not going to receive pain medication 24 hour interval change 10/24/2022 Patient is seen and evaluated in room at bedside Vital signs are reviewed and reveal temperature of 98.3, pulse 67, respirations 16 and blood pressure 76 Wound Care is following closely with open ulcerations left lower extremity - Patient remains on thiamine and folic acid given history of alcoholism -- Case management on board for discharge planning; patient awaits placement to SNF versus ECF Objective - Vital Signs Vital signs: Vital Signs Temp 98.5 F 10/24/22 08:00 Pulse 69 10/24/22 08:00 Resp 16 10/24/22 08:00 BP 145/79 10/24/22 08:00 Pulse Ox 97 10/24/22 08:00 FiO2 Intake & Output 10/23/22 10/24/22 10/24/22 18:59 06:59 18:59 Intake Total 250 Output Total 550 Balance -300 Intake: Oral 250 Output: Urine 550 Other: Voiding Method Urinal Urinal # Voids 3 # Bowel Movements 1 - Exam PHYSICAL EXAMINATION: GENERAL: The patient is alert and oriented x3, not in any acute distress. Well developed, well nourished. HEENT: Pupils are round and equally reacting to light. EOMI. No scleral icterus. No conjunctival pallor. Normocephalic, atraumatic. No pharyngeal erythema. No thyromegaly. CARDIOVASCULAR: S1 and S2 present. No murmurs, rubs, or gallops. PULMONARY: Chest is clear to auscultation, no wheezing or crackles. ABDOMEN: Soft, nontender, nondistended, normoactive bowel sounds. No palpable organomegaly. MUSCULOSKELETAL: No joint swelling or deformity. EXTREMITIES: No cyanosis, clubbing, or pedal edema. NEUROLOGICAL: Gross neurological examination did not reveal any focal deficits. SKIN: No rashes. - Labs CBC & Chem 7: 10/17/22 12:09 10/17/22 12:09 Assessment and Plan Assessment: Generalized debility and adult failure to thrive Chronic alcoholism COPD; not in exacerbation Stasis dermatitis with ulcers of right foot -- Patient continues to be followed by wound care service - Plan is to discharge to skilled rehab - Case management on board for discharge planning
[2022-10-24] MEDS: SODIUM CHLORIDE 0.9% 1,000 ML IV SCH (20:33)
[2022-10-25] MEDS: FOLIC ACID 1 MG TAB PO SCH (07:23)
[2022-10-25] MEDS: THIAMINE 100 MG TAB PO SCH ×2 (07:23→16:04)
[2022-10-25] MEDS: POTASSIUM CHLORIDE ER 20 MEQ TAB.ER PO SCH (07:23)
[2022-10-25] MEDS: HYDROcodone/APAP 7.5-325MG 1 EACH TAB PO PRN ×3 (07:23→20:26)
[2022-10-25 08:54] LABS: African American GFR (CKD) >90 (>60 ml/min/1.73 sqM); Anion Gap 10 mmol/L; Blood Urea Nitrogen 10 mg/dL (9-20); Calcium 7.4 mg/dL (8.4-10.2); Carbon Dioxide 17 mmol/L (22-30); Chloride 101 mmol/L (98-107); Glucose 77 mg/dL (74-99); Non-African American GFR(CKD) >90 (>60 ml/min/1.73 sqM); Sodium 128 mmol/L (137-145)
[2022-10-25 08:57] LABS: Potassium 4.7 mmol/L (3.5-5.1)
[2022-10-25 09:57] LABS: HCT 32.9 % (39.0-53.0); HGB 10.4 gm/dL (13.0-17.5); Hypochromasia Slight; MCH 34.7 pg (25.0-35.0); MCHC 31.5 g/dL (31.0-37.0); MCV 110.3 fL (80.0-100.0); Macrocytosis Marked; Mean Platelet Volume 9.4; RBC 2.98 m/uL (4.30-5.90); RDW 15.7 % (11.5-15.5); WBC 6.3 k/uL (3.8-10.6)
[2022-10-25 10:11] LABS: Platelet Count 97 k/uL (150-450)
[2022-10-25 10:22] LABS: Eosinophils # (M) 0.06 k/uL (0-0.7); Lymphocytes # (M) 1.51 k/uL (1.0-4.8); Monocytes # (M) 0.19 k/uL (0-1.0); Neutrophils # (M) 4.54 k/uL (1.3-7.7); Neutrophils % (M) 72 %; Nucleated Red Blood Cells 0 /100 WBC (0-0); Total Cells Counted 100
[2022-10-25] MEDS: SODIUM CHLORIDE 0.9% 1,000 ML IV SCH (14:25)
[2022-10-26] MEDS: HYDROcodone/APAP 7.5-325MG 1 EACH TAB PO PRN ×4 (02:22→20:28)
[2022-10-26] MEDS: POTASSIUM CHLORIDE ER 20 MEQ TAB.ER PO SCH (08:05)
[2022-10-26] MEDS: THIAMINE 100 MG TAB PO SCH ×2 (08:05→16:51)
[2022-10-26] MEDS: FOLIC ACID 1 MG TAB PO SCH (08:07)
[2022-10-26] MEDS: SODIUM CHLORIDE 0.9% 1,000 ML IV SCH (16:53)
[2022-10-27 02:17] VITALS: TEMP 97.8
--- NOTE | 2022-10-27 02:18 | PN ---
PROGRESS NOTE DATE OF SERVICE: 10/25/2022 CHIEF COMPLAINT: General debility, failure to thrive with COPD and alcoholism. HISTORY OF PRESENT ILLNESS: This gentleman is currently waiting for [facility] placement. At the present time, other than his usual complaint of back pain, he is doing well. PHYSICAL EXAMINATION: CHEST: Clear. CARDIAC: Normal. ABDOMEN: Soft and nontender. IMPRESSION: 1. General debility and failure to thrive. 2. Chronic alcoholism. 3. Chronic obstructive pulmonary disease. 4. Cellulitis and ulcers of left foot. PLAN: Await discharge location and plan. MMODL / IJN: [id number] /
[2022-10-27] MEDS: HYDROcodone/APAP 7.5-325MG 1 EACH TAB PO PRN (03:36)
[2022-10-27] MEDS: THIAMINE 100 MG TAB PO SCH (08:47)
[2022-10-27] MEDS: FOLIC ACID 1 MG TAB PO SCH (08:47)
[2022-10-27] MEDS: POTASSIUM CHLORIDE ER 20 MEQ TAB.ER PO SCH (08:47)
[2022-10-27] MEDS ORDERED: ETODOLAC 400 MG TAB PO SCH (09:00)
--- NOTE | 2022-10-27 12:43 | DS ---
DISCHARGE SUMMARY CHIEF COMPLAINT: General debility and failure to thrive. HISTORY OF PRESENT ILLNESS AND PHYSICAL EXAMINATION: Details of this man's history and physical can be found in the initial workup. LABORATORY STUDIES: While he is in the hospital, he had laboratory studies, details of which can be found in the laboratory section of his chart. COURSE IN THE HOSPITAL: After admission, he was placed on bedrest, started on intravenous fluids. Balance of his hospitalization was basically spent trying to find a place for him to go. He could not go home due to his debility. In the hospital, he was on narcotic analgesics which were stopped after was alerted he was going to be going to a [facility] in [facility]. He will be placed on Lodine twice a day. FINAL DIAGNOSES: 1. General debility and failure to thrive. 2. Malnutrition. 3. Dehydration. 4. Chronic obstructive pulmonary disease. 5. Chronic alcoholism. 6. Cellulitis and 2 ulcers of the left foot. OPERATIONS: None. CONSULTATIONS: Wound care. MMMONSE / MOUNIKAN: [id number] /
[2022-10-27 13:42] VITALS: BP 113/71; PULSE 72; RESP 14
--- NOTE | 2022-10-27 13:59 | CDI ---
Documentation Clarification Form Date: 10/27/2022 01:47:00 PM From: Gisselle Garza RN, CCDS Admit Date: 10/17/2022 02:00:00 PM Patient Name: Allan Madrigal Visit Number: [id number] Discharge Date: ATTENTION: The Clinical Documentation Specialists (CDI) and [facility] Coding Staff appreciate your assistance in clarifying documentation. Please respond to the clarification below the line at the bottom and electronically sign. The CDI & [facility] Coding staff will review the response and follow-up if needed. Please note: Queries are made part of the Legal Health Record. If you have any questions, please contact the author of this message via ITS. Dr. Homero Sainz Malnutrition is documented in the H/P and subsequent progress notes. Additional clarification regarding the severity of malnutrition is requested. History/Risk Factors: Chronic wounds, DVTs Current every day smoker, Daily, Heavy alcohol use Clinical Indicators: 62-year-old male present with medication noncompliance and worsening debility, complaining of back pain. He is unable to perform his activities of daily living. Current BMI: 24.5 82.1 kg Height 6ft Insufficient energy intake: Poor 0-25 % of meals X 7 days Weight Loss: 2 lb weight loss X [address] Consult Assessment: Inadequate energy intake Treatment: Dietary Consult: Yes General/healthful diet Supplements: Ensure Enlive Vanilla TID, Magic cups Vanilla BID Monitor PO tolerance to oral supplements Please clarify the type of malnutrition, if known: [ ] Mild Protein-Calorie Malnutrition [ ] Moderate Protein-Calorie Malnutrition [ ] Severe Protein-Calorie Malnutrition [ ] Other condition, please specify [ ] Unable to Determine (Template Last Revised: July 2020) MTDD
--- NOTE | 2022-10-28 04:01 | PN ---
PROGRESS NOTE CHIEF COMPLAINT: General debility. HISTORY OF PRESENT ILLNESS: This gentleman has a bed at [facility]. He is probably going to go later today or tomorrow. PHYSICAL EXAMINATION: GENERAL: He is awake and alert. CHEST: Clear. CARDIAC: Normal. ABDOMEN: Flat and soft. IMPRESSION: 1. General debility. 2. Failure to thrive. 3. Malnutrition. 4. Chronic alcoholism. 5. COPD. 6. Infected ulcers left foot. PLAN: [facility] to prison now that bed is available. MMODL / IJN: [id number] /
== END 2022-10-27 14:47 ==
LOC: EC 10:47 → INTOOBSV 14:00 → 4SSUR 14:00 → UNDODISIN 10-27 14:47
PROVIDERS: ADMIT Family Medicine; ATTEND Family Medicine
DX: L03.115 Cellulitis of right lower limb (principal); E46 Unspecified protein-calorie malnutrition; I87.2 Venous insufficiency (chronic) (peripheral); E86.0 Dehydration; L97.522 Non-pressure chronic ulcer of other part of left foot with fat layer exposed; J44.9 Chronic obstructive pulmonary disease, unspecified; F17.210 Nicotine dependence, cigarettes, uncomplicated; F10.20 Alcohol dependence, uncomplicated; Z91.148 Patient's other noncompliance with medication regimen for other reason; Z86.718 Personal history of other venous thrombosis and embolism; Z79.899 Other long term (current) drug therapy; Z88.0 Allergy status to penicillin; Z75.1 Person awaiting admission to adequate facility elsewhere; Z68.24 Body mass index [BMI] 24.0-24.9, adult
CPT/HCPCS: 96374; 99285; 36415; 93005; 97530 ×7; 97162; 97535; 97166; 80048 ×2; 82728; 83540; 83550; 85025 ×2; 82272; G0378 ×11; J1170; 96360; 96361

== ENCOUNTER 2023-05-19 08:10 | Inpatient (IN) | payer OTHER ==
[2023-05-19] MEDS ORDERED: SODIUM CHLORIDE 0.9% 1,000 ML IV STA (08:15)
[2023-05-19] MEDS ORDERED: THIAMINE 100 MG/ML 2 ML VIAL IM STA (08:15)
[2023-05-19] MEDS ORDERED: LORazepam 2 MG/ML INJ IV PRN ×3 (08:15)
[2023-05-19] MEDS ORDERED: DIPH,PERTUS(ACELL)TETVAC-LF 0.5 ML VIAL IM ONE (08:15)
[2023-05-19] MEDS ORDERED: MORPHINE SULFATE 4 MG/ML SYRINGE IVP STA ×2 (08:16→10:29)
--- NOTE | 2023-05-19 08:33 | ED ---
General Adult HPI - General Chief complaint: Extremity Injury, Lower Stated complaint: FALL Time Seen by Provider: 05/19/23 08:18 Source: patient, RN notes reviewed, old records reviewed - History of Present Illness Initial comments: Patient is a 62-year-old male who presents emergency Department after a fall yesterday. Patient fell at 1800 on 05/18/2023. Was heavily drinking at that time. Was able to crawl into his house and spent the night on the couch with help from his friends. With this morning with severe pain in his right thigh. Hip pain yesterday but didn't think much of it. Called EMS for further evaluation. States he did not lose consciousness when he fell. Remembers the fall. States he was heavily drinking yesterday but denies any history of alcohol withdrawals. Also endorses right wrist pain. Denies any numbness in the right leg. Has pain with any movement primarily in the right side. There is shortening and external rotation. Presents for further evaluation at this time. - Related Data Home Medications Medication Instructions Recorded Confirmed No Known Home Medications 05/19/23 05/19/23 Allergies Allergy/AdvReac Type Severity Reaction Status Date / Time Penicillins Allergy Rash/Hives Verified 05/19/23 11:59 Review of Systems ROS Statement: Those systems with pertinent positive or pertinent negative responses have been documented in the HPI. Review of Systems: CONST: Denies fever EYES: Denies blurry vision ENT: Denies nasal congestion C/V: Denies Chest pain RESP: Denies shortness of breath GI: Denies abdominal pain : Denies dysuria SKIN: Denies rash. MSK: Endorses leg pain NEURO: Denies headache ROS Other: All systems not noted in ROS Statement are negative. Past Medical History Past Medical History: Deep Vein Thrombosis (DVT) Additional Past Medical History / Comment(s): rt arm dvt History of Any Multi-Drug Resistant Organisms: None Reported Past Surgical History: No Surgical Hx Reported Past Anesthesia/Blood Transfusion Reactions: No Reported Reaction Past Psychological History: No Psychological Hx Reported Smoking Status: Current every day smoker Past Alcohol Use History: Daily, Heavy Past Drug Use History: None Reported General Exam - General Exam Comments Initial Comments: General: Appears in moderate distress. Mild alcohol withdrawal symptoms inc luding tongue fasciculations as well as extremity tremors. HEAD: Normal with no signs of head trauma. Negative dan sign. Negative raccoon eyes. EYES: PERRLA, EOMI, conjunctiva normal, no discharge. Pupils are 3 mm equal bilaterally. ENT: Hearing grossly intact, normal oropharynx. RESPIRATORY: Clear breath sounds bilaterally. No wheezes, rales, or rhonchi. C/V: Regular rate and rhythm. S1 and S2 auscultated, no edema, peripheral pulses 2+ and intact throughout ABD: Abd is soft, nontender, nondistended EXT: Reduced range of motion of the right lower extremity. Suspected deformity to the right femur. Right lower extremity is shortened and externally rotated. Neurovascularly intact throughout. Patient also has tenderness palpation over the right wrist with reduced range of motion. SKIN: No rashes or lesions observed on exposed skin. NEURO: Alert and oriented x 4. GCS of 15. Weakness in the right lower extremity secondary to suspected injury to the right side. Course Vital Signs 05/19/23 05/19/23 05/19/23 08:13 09:00 10:00 Temperature 97.6 F Pulse Rate 90 90 80 Respiratory 18 18 18 Rate Blood Pressure 162/103 138/92 149/89 O2 Sat by Pulse 90 L 94 L 95 Oximetry 05/19/23 05/19/23 11:08 12:32 Temperature Pulse Rate 70 71 Respiratory 18 18 Rate Blood Pressure 136/86 140/95 O2 Sat by Pulse 95 96 Oximetry Medical Decision Making - Medical Decision Making Was pt. sent in by a medical professional or institution (DYLAN Lafleur, DRYWALL WORKER, urgent care, hospital, or senior living...) When possible be specific @ -No Did you speak to anyone other than the patient for history (EMS, parent, family, police, friend...)? What history was obtained from this source @ -No Did you review nursing and triage notes (agree or disagree)? Why? @ -I reviewed and agree with nursing and triage notes Were old charts reviewed (outside hosp., previous admission, EMS record, old EKG, old radiological studies, urgent care reports/EKG's, senior living records)? Report findings @ -Old charts reviewed Differential Diagnosis (chest pain, altered mental status, abdominal pain women, abdominal pain men, vaginal bleeding, weakness, fever, dyspnea, syncope, headac he, dizziness, GI bleed, back pain, seizure, CVA, palpatations, mental health, musculoskeletal)? @ -Differential Musculoskeletal Muscular strain, contusion, ligament sprain, fracture, arthritis, septic arthritis, bursitis, cellulitis, muscle spasm, nerve compression, DVT, arterial occlusion, herpes zoster, electrolyte abnormality, tumor.... This is not meant to be in all inclusive list. Also includes alcohol withdrawals, intracranial injury. EKG interpreted by me (3pts min.). @ -As above X-rays interpreted by me (1pt min.). @ -X-ray reveals a right intertrochanteric fracture of the right femur. Patient also has a right distal radius fracture. Chest x-ray reveals no obvious acute cardio pulmonary process. CT interpreted by me (1pt min.). @ -CT brain, C-spine reveals no obvious acute injury or intracranial process. U/S interpreted by me (1pt. min.). @ -None done What testing was considered but not performed or refused? (CT, X-rays, U/S, labs)? Why? @ -None What meds were considered but not given or refused? Why? @ -None Did you discuss the management of the patient with other professionals (professionals i.e. , PA, DRYWALL WORKER, lab, RT, psych nurse, social staff worker, day trader, teacher, financial aids officer, registered nurse hh case manager)? Give summary @ -I spoke with BENIGNO Matute of [facility] production line solderer who accepted the patient under their service. Medicine consulted, patient's PCP Dr. Sainz who was in agreement with the plan. Was smoking cessation discussed for >3mins.? @ -No Was critical care preformed (if so, how long)? @ -No Were there social determinants of health that impacted care today? How? (Homelessness, low income, unemployed, alcoholism, drug addiction, transportation, low edu. Level, literacy, decrease access to med. care, fpc, rehab)? @ -No Was there de-escalation of care discussed even if they declined (Discuss DNR or withdrawal of care, Hospice)? DNR status @ -No What co-morbidities impacted this encounter? (DM, HTN, Smoking, COPD, CAD, Cancer, CVA, ARF, Chemo, Hep., AIDS, mental health diagnosis, sleep apnea, morbid obesity)? @ -None Was patient admitted / discharged? Hospital course, mention meds given and route, prescriptions, significant lab abnormalities, going to OR and other pertinent info. @ -Patient presents greater than 12 hours following a fall from standing. He was raking leaves when this occurred. Expressed pain in his right leg and attempted to sleep it off overnight however was having her symptoms more which time he called EMS. We will obtain CT brain, as well as chest x-ray, right leg x-rays, and right wrist x-ray. Basic labs will be obtained. He will be covered for alcohol withdrawals with Ativan. Patient was in agreement this plan. Vital signs are within acceptable limits at this time. Patient's imaging returns remarkable for a right intertrochanteric fracture of the right hip. Patient also has a right distal radius fracture. Patient placed in a sugar tong splint of the right upper extremity. Patient placed in a knee immobilizer for stability of the right lower extremity. Remains neurovascularly intact. Patient will be admitted. Patient does have mild alcohol withdrawals. Patient's laboratory studies are unremarkable except for possible UTI. He will be empirically administered a dose of Rocephin. He is asymptomatic. We will wait for the culture to grow. Discussed the results of the patient. He was in agreement this plan. He will be admitted at this time. I spoke with orthopedic on-call, BENIGNO Matute who ac cepted the admission was in agreement with the plan. Requested medicine consultation for surgical clearance. They did request something physician group however patient's PCP is Dr. Sainz. I did place consult for Dr. Sainz and spoke with him informing him of this plan, as that is the patient's PCP. There were in agreement this plan. Patient admitted in stable condition. Undiagnosed new problem with uncertain prognosis? @ -No Drug Therapy requiring intensive monitoring for toxicity (Heparin, Nitro, Insulin, Cardizem)? @ -No Were any procedures done? @ -Splinting Diagnosis/symptom? @ -Fall, right distal radius fracture, right intertrochanteric fracture, Acute, or Chronic, or Acute on Chronic? @ -Acute Uncomplicated (without systemic symptoms) or Complicated (systemic symptoms)? @ -Complicated Side effects of treatment? @ -none Exacerbation, Progression, or Severe Exacerbation] @ -no Poses a threat to life or bodily function? @ -Possibly, yes Diagnosis/symptom? @ -Alcohol withdrawal Acute, or Chronic, or Acute on Chronic? @ -Acute Uncomplicated (without systemic symptoms) or Complicated (systemic symptoms)? @ -Complicated Side effects of treatment? @ -none Exacerbation, Progression, or Severe Exacerbation] @ -no Poses a threat to life or bodily function? @ -yes - Lab Data Result diagrams: 05/19/23 08:52 05/19/23 08:52 Lab Results 05/19/23 05/19/23 05/19/23 Range/Units 08:35 08:52 08:52 WBC 7.4 (3.8-10.6) k/uL RBC 4.77 (4.30-5.90) m/uL Hgb 15.6 (13.0-17.5) gm/dL Hct 45.5 (39.0-53.0) % MCV 95.5 (80.0-100.0) fL MCH 32.6 (25.0-35.0) pg MCHC 34.2 (31.0-37.0) g/dL RDW 15.2 (11.5-15.5) % Plt Count 147 L (150-450) k/uL MPV 9.5 Neutrophils % 73 % Lymphocytes % 15 % Monocytes % 8 % Eosinophils % 0 % Basophils % 1 % Neutrophils # 5.5 (1.3-7.7) k/uL Lymphocytes # 1.1 (1.0-4.8) k/uL Monocytes # 0.6 (0-1.0) k/uL Eosinophils # 0.0 (0-0.7) k/uL Basophils # 0.1 (0-0.2) k/uL PT 11.4 (10.0-12.5) sec INR 1.0 (<1.2) APTT 24.6 (22.0-30.0) sec Sodium (137-145) mmol/L Potassium (3.5-5.1) mmol/L Chloride (98-107) mmol/L Carbon Dioxide (22-30) mmol/L Anion Gap mmol/L BUN (9-20) mg/dL Creatinine (0.66-1.25) mg/dL Est GFR (CKD-EPI)AfAm (>60 ml/min/1.73 sqM) Est GFR (CKD-EPI)NonAf (>60 ml/min/1.73 sqM) Glucose (74-99) mg/dL POC Glucose (mg/dL) (70-110) mg/dL POC Glu Branch Service Associate ID Calcium (8.4-10.2) mg/dL Total Bilirubin (0.2-1.3) mg/dL AST (17-59) U/L ALT (4-49) U/L Alkaline Phosphatase (38-126) U/L Total Protein (6.3-8.2) g/dL Albumin (3.5-5.0) g/dL Urine Color Urine Appearance (Clear) Urine pH (5.0-8.0) Ur Specific [place] (1.001-1.035) Urine Protein (Negative) Urine Glucose (UA) (Negative) Urine Ketones (Negative) Urine Blood (Negative) Urine Nitrite (Negative) Urine Bilirubin (Negative) Urine Urobilinogen (<2.0) mg/dL Ur Leukocyte Esterase (Negative) Urine WBC (0-5) /hpf Urine Bacteria (None) /hpf Urine Opiates Screen (NotDetected) Ur Oxycodone Screen (NotDetected) Urine Methadone Screen (NotDetected) Ur Barbiturates Screen (NotDetected) U Tricyclic Antidepress (NotDetected) Ur Phencyclidine Scrn (NotDetected) Ur Amphetamines Screen (NotDetected) U Methamphetamines Scrn (NotDetected) U Benzodiazepines Scrn (NotDetected) Urine Cocaine Screen (NotDetected) U Marijuana (THC) Screen (NotDetected) Ur Drug Screen Comment Serum Alcohol mg/dL Blood Type Blood Type Confirm A Negative Blood Type Recheck Bld Type Recheck Status Antibody Screen Spec Expiration Date 05/19/23 05/19/23 05/19/23 Range/Units 08:52 08:52 08:52 WBC (3.8-10.6) k/uL RBC (4.30-5.90) m/uL Hgb (13.0-17.5) gm/dL Hct (39.0-53.0) % MCV (80.0-100.0) fL MCH (25.0-35.0) pg MCHC (31.0-37.0) g/dL RDW (11.5-15.5) % Plt Count (150-450) k/uL MPV Neutrophils % % Lymphocytes % % Monocytes % % Eosinophils % % Basophils % % Neutrophils # (1.3-7.7) k/uL Lymphocytes # (1.0-4.8) k/uL Monocytes # (0-1.0) k/uL Eosinophils # (0-0.7) k/uL Basophils # (0-0.2) k/uL PT (10.0-12.5) sec INR (<1.2) APTT (22.0-30.0) sec Sodium 135 L (137-145) mmol/L Potassium 3.6 (3.5-5.1) mmol/L Chloride 101 (98-107) mmol/L Carbon Dioxide 19 L (22-30) mmol/L Anion Gap 15 mmol/L BUN 6 L (9-20) mg/dL Creatinine 0.44 L (0.66-1.25) mg/dL Est GFR (CKD-EPI)AfAm >90 (>60 ml/min/1.73 sqM) Est GFR (CKD-EPI)NonAf >90 (>60 ml/min/1.73 sqM) Glucose 99 (74-99) mg/dL POC Glucose (mg/dL) (70-110) mg/dL POC Glu Branch Service Associate ID Calcium 8.7 (8.4-10.2) mg/dL Total Bilirubin 1.4 H (0.2-1.3) mg/dL AST 101 H (17-59) U/L ALT 46 (4-49) U/L Alkaline Phosphatase 170 H (38-126) U/L Total Protein 6.7 (6.3-8.2) g/dL Albumin 3.5 (3.5-5.0) g/dL Urine Color Yellow Urine Appearance Cloudy (Clear) Urine pH 5.5 (5.0-8.0) Ur Specific [place] 1.020 (1.001-1.035) Urine Protein Trace H (Negative) Urine Glucose (UA) Negative (Negative) Urine Ketones 2+ H (Negative) Urine Blood Negative (Negative) Urine Nitrite Positive (Negative) Urine Bilirubin Negative (Negative) Urine Urobilinogen <2.0 (<2.0) mg/dL Ur Leukocyte Esterase Large H (Negative) Urine WBC 1 (0-5) /hpf Urine Bacteria Rare H (None) /hpf Urine Opiates Screen Detected H (NotDetected) Ur Oxycodone Screen Not Detected (NotDetected) Urine Methadone Screen Not Detected (NotDetected) Ur Barbiturates Screen Not Detected (NotDetected) U Tricyclic Antidepress Not Detected (NotDetected) Ur Phencyclidine Scrn Not Detected (NotDetected) Ur Amphetamines Screen Not Detected (NotDetected) U Methamphetamines Scrn Not Detected (NotDetected) U Benzodiazepines Scrn Not Detected (NotDetected) Urine Cocaine Screen Not Detected (NotDetected) U Marijuana (THC) Screen Not Detected (NotDetected) Ur Drug Screen Comment SEE COMMENT Serum Alcohol <10 mg/dL Blood Type A Negative Blood Type Confirm Blood Type Recheck No Previous Record Bld Type Recheck Status CABO Indicated Antibody Screen NEGATIVE Spec Expiration Date 05/22/2023 - 235105/19/23 Range/Units 13:15 WBC (3.8-10.6) k/uL RBC (4.30-5.90) m/uL Hgb (13.0-17.5) gm/dL Hct (39.0-53.0) % MCV (80.0-100.0) fL MCH (25.0-35.0) pg MCHC (31.0-37.0) g/dL RDW (11.5-15.5) % Plt Count (150-450) k/uL MPV Neutrophils % % Lymphocytes % % Monocytes % % Eosinophils % % Basophils % % Neutrophils # (1.3-7.7) k/uL Lymphocytes # (1.0-4.8) k/uL Monocytes # (0-1.0) k/uL Eosinophils # (0-0.7) k/uL Basophils # (0-0.2) k/uL PT (10.0-12.5) sec INR (<1.2) APTT (22.0-30.0) sec Sodium (137-145) mmol/L Potassium (3.5-5.1) mmol/L Chloride (98-107) mmol/L Carbon Dioxide (22-30) mmol/L Anion Gap mmol/L BUN (9-20) mg/dL Creatinine (0.66-1.25) mg/dL Est GFR (CKD-EPI)AfAm (>60 ml/min/1.73 sqM) Est GFR (CKD-EPI)NonAf (>60 ml/min/1.73 sqM) Glucose (74-99) mg/dL POC Glucose (mg/dL) 100 (70-110) mg/dL POC Glu Branch Service Associate ID Madonna Sanderson Calcium (8.4-10.2) mg/dL Total Bilirubin (0.2-1.3) mg/dL AST (17-59) U/L ALT (4-49) U/L Alkaline Phosphatase (38-126) U/L Total Protein (6.3-8.2) g/dL Albumin (3.5-5.0) g/dL Urine Color Urine Appearance (Clear) Urine pH (5.0-8.0) Ur Specific [place] (1.001-1.035) Urine Protein (Negative) Urine Glucose (UA) (Negative) Urine Ketones (Negative) Urine Blood (Negative) Urine Nitrite (Negative) Urine Bilirubin (Negative) Urine Urobilinogen (<2.0) mg/dL Ur Leukocyte Esterase (Negative) Urine WBC (0-5) /hpf Urine Bacteria (None) /hpf Urine Opiates Screen (NotDetected) Ur Oxycodone Screen (NotDetected) Urine Methadone Screen (NotDetected) Ur Barbiturates Screen (NotDetected) U Tricyclic Antidepress (NotDetected) Ur Phencyclidine Scrn (NotDetected) Ur Amphetamines Screen (NotDetected) U Methamphetamines Scrn (NotDetected) U Benzodiazepines Scrn (NotDetected) Urine Cocaine Screen (NotDetected) U Marijuana (THC) Screen (NotDetected) Ur Drug Screen Comment Serum Alcohol mg/dL Blood Type Blood Type Confirm Blood Type Recheck Bld Type Recheck Status Antibody Screen Spec Expiration Date - EKG Data -: EKG Interpreted by Me EKG Comments: 12-lead Electrocardiogram Interpretation Note EKG was reviewed and interpreted by myself. 12-lead ECG performed at 0842 is interpreted by me as revealing normal sinus rhythm at a rate of 81 beats per minute. [place] is normal. MI interval is 141 ms, QS duration is 87 ms, QTc is 334 seconds.. There were no obvious acute ST or T wave abnormalities to suggest myocardial ischemia or injury. R wave progression across the precordium was satisfactory. By my interpretation this EKG is non-diagnostic for acute ischemia. Disposition Clinical Impression: Fall, Fracture of right distal radius, Fracture, intertrochanteric, right femur, Alcohol withdrawal Disposition: ADMITTED IP TO THIS HOSP Condition: Stable Referrals: Homero Sainz MD [Primary Care Provider] - 1-2 days Time of Disposition: 11:15
[2023-05-19 09:04] LABS: Basophils # (A) 0.1 k/uL (0-0.2); Basophils % (A) 1 %; Eosinophils % (A) 0 %; HCT 45.5 % (39.0-53.0); HGB 15.6 gm/dL (13.0-17.5); Lymphocytes # (A) 1.1 k/uL (1.0-4.8); Lymphocytes % (A) 15 %; MCH 32.6 pg (25.0-35.0); MCHC 34.2 g/dL (31.0-37.0); MCV 95.5 fL (80.0-100.0); Mean Platelet Volume 9.5; Monocytes # (A) 0.6 k/uL (0-1.0); Monocytes % (A) 8 %; Neutrophils # (A) 5.5 k/uL (1.3-7.7); Neutrophils % (A) 73 %; Platelet Count 147 k/uL (150-450); RBC 4.77 m/uL (4.30-5.90); RDW 15.2 % (11.5-15.5); WBC 7.4 k/uL (3.8-10.6)
[2023-05-19 09:15] LABS: Partial Thromboplastin Time 24.6 sec (22.0-30.0); Prothrombin Time 11.4 sec (10.0-12.5)
[2023-05-19 09:30] LABS: ALT 46 U/L (4-49); AST 101 U/L (17-59); African American GFR (CKD) >90 (>60 ml/min/1.73 sqM); Albumin 3.5 g/dL (3.5-5.0); Alcohol <10 mg/dL; Alkaline Phosphatase 170 U/L (38-126); Anion Gap 15 mmol/L; Blood Urea Nitrogen 6 mg/dL (9-20); Calcium 8.7 mg/dL (8.4-10.2); Carbon Dioxide 19 mmol/L (22-30); Chloride 101 mmol/L (98-107); Glucose 99 mg/dL (74-99); Non-African American GFR(CKD) >90 (>60 ml/min/1.73 sqM); Potassium 3.6 mmol/L (3.5-5.1); Sodium 135 mmol/L (137-145); Total Bilirubin 1.4 mg/dL (0.2-1.3); Total Protein 6.7 g/dL (6.3-8.2)
--- NOTE | 2023-05-19 10:09 | CT ---
EXAMINATION TYPE: CT brain nissaine wo con DATE OF EXAM: 05/19/2023 COMPARISON: None HISTORY: 62-year-old male trauma, pain CT DLP: 1383.4 mGycm Automated exposure control for dose reduction was used. Technique: Examination of the head was done in axial plane without intravenous contrast. Coronal and sagittal reconstructions performed. CT of the cervical spine was obtained in axial plane without intravenous injection of contrast mater ial. Coronal and sagittal reformatted images were obtained from the axial views for evaluation of f ractures, spinal alignment and canal. FINDINGS: Head: There is no evidence of acute intracranial hemorrhage, acute ischemic changes, mass, mass-effect, or extra-axial fluid collection. There is no effacement of cerebral sulci or basal subarachnoid cister ns. There is no hydrocephalus. There is no midline shift. Nuno-white matter distinction is preserv ed. 1.1 cm polyp or mucosal retention cyst left lateral wall of the maxillary sinus. Scattered mild mucos al thickening ethmoid air cells. Prominent rightward nasal septal deviation. Orbits and globes are in tact. Mastoid air cells well pneumatized. Cerumen right external auditory canal. Cervical spine: No craniocervical junction unremarkable, predental space widening, or prevertebral soft tissue swelli ng. Scattered mild facet and uncovertebral joint arthropathy is present. No acute fracture of the cervical spine. Alignment is maintained. Mild posterior disc bulge at C4-C5 mildly narrowing the spinal canal. Assessment of the spinal canal from C5-C6 and below is limited due to artifact from patient's shoulders. Emphysematous change in the visualized upper lungs. Sagittal and coronal reformatted images confirm above findings. COMBINED IMPRESSION: 1. No acute intracranial abnormality seen. 2. No acute fracture or malalignment of the cervical spine. Mild posterior disc bulge at C4-C5 causin g mild spinal canal stenosis.
--- NOTE | 2023-05-19 10:52 | XR ---
AP pelvis with AP and lateral right hip and 2 views right femur. DATE: 05/19/2023. COMPARISON: None available. MEDICAL HISTORY: Trauma after fall. IMPRESSION: There is a comminuted intertrochanteric fracture of the right femur. Several displaced fragments are seen. The largest fragment is displaced superiorly and laterally. The lesser trochanter is also displ aced is a separate fragment slightly medially. Vascular calcification is seen throughout the thigh.
--- NOTE | 2023-05-19 10:53 | XR ---
EXAMINATION TYPE: XR chest 1V portable DATE OF EXAM: 05/19/2023 COMPARISON: NONE HISTORY: Trauma. TECHNIQUE: Single frontal view of the chest is obtained. FINDINGS: There is no focal air space opacity, pleural effusion, or pneumothorax seen. The cardiac silhouette size is within normal limits. The osseous structures are intact. IMPRESSION: No acute process.
--- NOTE | 2023-05-19 10:54 | XR ---
3 views complete right wrist. DATE: 05/19/2023. COMPARISON: None available. Clinical history: Trauma. IMPRESSION: There is a comminuted intra-articular fracture of the radius which is not displaced. There is moderate soft tissue swelling surrounding the wrist. The joint spaces are preserved.
[2023-05-19 11:41] LABS: Appearance,Urine Cloudy (Clear); Bacteria,Urine Rare /hpf; Bilirubin,Urine Negative (Negative); Blood,Urine Negative (Negative); Color,Urine Yellow; Glucose,Urine (UA) Negative (Negative); Ketones,Urine 2+ (Negative); Leukocyte Esterase,Urine Large (Negative); Nitrite,Urine Positive (Negative); PH, Urine 5.5 (5.0-8.0); Protein,Urine Trace (Negative); Urobilinogen,Urine <2.0 mg/dL (<2.0); WBC,Urine 1 /hpf (0-5)
[2023-05-19 11:43] LABS: Cocaine Screen,Urine Not Detected (NotDetected); Opiate Screen,Urine Detected (NotDetected); Phencyclidine Screen,Urine Not Detected (NotDetected); Urn Cannabinoid Scrn Not Detected (NotDetected)
[2023-05-19 11:44] LABS: Amphetamine Screen,Urine Not Detected (NotDetected); Barbiturate Screen,Urine Not Detected (NotDetected); Benzodiazepines Screen,Urine Not Detected (NotDetected); Methadone Screen, Urine Not Detected (NotDetected); Oxycodone Screen, Urine Not Detected (NotDetected); Tricyclic Antidepressant,Urine Not Detected (NotDetected)
[2023-05-19] MEDS ORDERED: NALOXONE 0.4 MG/ML 1 ML VIAL IV PRN (12:16)
[2023-05-19] MEDS ORDERED: MORPHINE SULFATE 4 MG/ML SYRINGE IV PRN (12:16)
[2023-05-19] MEDS ORDERED: LORazepam 2 MG/ML INJ IV STA (12:54)
[2023-05-19 13:16] LABS: Glucose,Whole Blood 100 mg/dL (70-110)
--- NOTE | 2023-05-19 13:17 | P.HPOR ---
History of Present Illness H&P Date: 05/19/23 Chief Complaint: right hip pain; right wrist pain Patient is a 62-year-old male who presents to the emergency department this morning status post fall yesterday. Patient fell yesterday evening at home and was then able to crawl onto his couch with help friends. Patient presents to the emergency department this morning increasing pain to the right hip. Patient states he did not lose consciousness during the fall. Patient denies hitting his head. Patient says he is not on any blood thinners. Patient says he was drinking heavily yesterday. Patient denies any. History of alcohol abuse. Sensation states she also has some right wrist pain and states that he rates his arm out as he was trying to slowly fall. Patient says there is some radiation of pain from the right hip down the right thigh. Patient denies any previous orthopedic surgical history. Patient denies any other issues at this time. Patient says he has increased pain when he tries to move his right hand and right leg. Patient denies chest pain, fever, shortness breath, nausea, vomiting, change in vision, loss of bowel/bladder control. Past Medical History Past Medical History: Deep Vein Thrombosis (DVT) Additional Past Medical History / Comment(s): rt arm dvt History of Any Multi-Drug Resistant Organisms: None Reported Past Surgical History: No Surgical Hx Reported Past Anesthesia/Blood Transfusion Reactions: No Reported Reaction Past Psychological History: No Psychological Hx Reported Smoking Status: Current every day smoker Past Alcohol Use History: Daily, Heavy Past Drug Use History: None Reported Medications and Allergies Home Medications Medication Instructions Recorded Confirmed Type No Known Home Medications 05/19/23 05/19/23 History Allergies Allergy/AdvReac Type Severity Reaction Status Date / Time Penicillins Allergy Rash/Hives Verified 05/19/23 11:59 Physical Examination Inspection: Right leg appears to be shortened and externally rotated. Negative for any open fractures, significant erythema. Some swelling present to the right hip diffusely as well as minimal ecchymosis. There does appear to be some swelling to the right wrist as well. Negative for any open fractures. Negative for any significant deformity to the right hand/wrist. Sensation: Equal, symmetric, bilaterally intact throughout the upper and lower extremities. Palpation: Severe TTP diffusely throughout the right hip and extending distally to the thigh. There is some moderate tenderness to the patient diffusely throughout the right wrist. NTTP throughout rest of the upper and lower extremities. Range of motion: Significantly limited range of motion in the right hip in flexion and extension secondary to injury. Motor exam not performed on right knee due to the injury. Patient has full range of motion in right ankle dorsi/plantar flexion. Patient is able to wiggle digits in right foot. Patient has point motion throughout left lower extremity exam. Patient has point motion throughout left upper extremity exam. Patient's range of motion throughout right upper extremity and shoulder elevation and abduction and external/internal rotation as well as elbow flexion/extension. Right wrist not performed due to injury. Patient is lying in motion throughout digits and right hand. Motor: 4-/5 in resisted plantar/dorsiflexion right ankle. Right knee and hip motor exam not performed due to injury. 4+/5 in all major motor groups in left upper extremity and left lower extremity. Right wrist motor exam not performed due to injury. 4-/5 in resisted elbow flexion extension on the right secondary to referred pain to the wrist. Neurovascular: Radial pulses intact, 2+ bilaterally. Cap refill under 3 seconds in digits the upper and lower extremities. DP pulses palpable bilaterally. Special tests: Negative clonus bilaterally. Positive log roll maneuver on the right. Results - Labs Labs: Abnormal Lab Results - Last 24 Hours (Table) 05/19/23 05/19/23 05/19/23 Range/Units 08:52 08:52 08:52 Plt Count 147 L (150-450) k/uL Sodium 135 L (137-145) mmol/L Carbon Dioxide 19 L (22-30) mmol/L BUN 6 L (9-20) mg/dL Creatinine 0.44 L (0.66-1.25) mg/dL Total Bilirubin 1.4 H (0.2-1.3) mg/dL AST 101 H (17-59) U/L Alkaline Phosphatase 170 H (38-126) U/L Urine Protein Trace H (Negative) Urine Ketones 2+ H (Negative) Ur Leukocyte Esterase Large H (Negative) Urine Bacteria Rare H (None) /hpf Urine Opiates Screen Detected H (NotDetected) H & H 05/19/23 Range/Units 08:52 Hgb 15.6 (13.0-17.5) gm/dL Hct 45.5 (39.0-53.0) % Coagulation 05/19/23 Range/Units 08:52 INR 1.0 (<1.2) Result Diagrams: 05/19/23 08:52 05/19/23 08:52 - Diagnostic results Wrist/Hand x-ray: report reviewed, image reviewed (Right wrist/hand x-ray does reveal distal radius fracture.) Hip x-ray: report reviewed, image reviewed (Right hip x-ray does reveal right IT fracture.) Assessment and Plan Assessment: 1. Right hip IT fracture; right distal radius fracture Plan: 1. Right hip IT fracture; right distal radius fracture - x-ray of the right hip does reveal right hip IT fracture. The right wrist/hand x-ray reveals distal radius fracture. I did examine the patient at bedside this morning and discussed things of the imaging. I did discuss the results of the exam and imaging with my attending, Dr. Pinon. At this time we're recommending surgical intervention in the form of right hip IM nail. Surgery has been ordered for tomorrow, 05/20/2023 right hip IM nail. Patient to be nothing by mouth beginning midnight tonight. With hold blood thinners at this time. Patient does need medical clearance for surgery. Pain medication as needed. We'll continue to follow patient during his stay in hospital. 2. Appreciate medical management - patient does need medical clearance for surgery 3. Pain management - tylenol; morphine 4. DVT prophylaxis - with hold blood thinners at this time. 5. GI prophylaxis -senna 6. PT/OT - nonweightbearing right upper and right lower extremity at this time. Weightbearing as tolerated left lower extremity and left upper extremity. 7. Encourage incentive spirometer use Time with Patient: Less than 30
--- NOTE | 2023-05-20 04:25 | P.CONS ---
History of Present Illness - Reason for Consult Consult date: 05/20/23 - History of Present Illness Patient is a 63-year-old male with a PMH of EtOH abuse who had presented to the emergency room after a fall. The patient reports that he fell on 05/18 at around 6 PM while he was drinking heavily. He reports falling onto his right side and wasn't able to get back up. He denied losing consciousness. In the emergency room, right femur x-rays revealed a comminuted intratrochanteric fracture of the right femur with several displaced fragments. Right wrist x-ray revealed comminuted intra-articular fracture of the radius. At time of interview, the patient reports ongoing right hip pain with any movement. Denied experiencing chest discomfort, shortness of breath, fever, chills, cough, nausea, vomiting, abdominal pain, diarrhea. Patient reports that baseline he drinks half a pint of hard liquor daily. He denies history of alcohol withdrawal or DTs. He reports his last drink was 2 days ago. Laboratory evaluation revealed a platelet count of 147, sodium 135, CO2 19, BUN 6, creat inine 0.44, total bilirubin 1.4, AST 101, and alk phos 170 with urine tox positive for opiates. ED documentation reviewed and case discussed with ED provider. Review of systems: Pertinent positives and negatives as discussed in HPI, a complete review of systems was performed and all other systems are negative. Physical examination: Vital signs reviewed General: non toxic, no distress, appears at stated age, normal weight Derm: no unusual rashes/lesions, warm Head: atraumatic, normocephalic, symmetric Eyes: EOMI, no lid lag, anicteric sclera, pupils equal round reactive to light ENT: Nose and ears atraumatic Neck: No cervical lymphadenopathy, trachea midline, supple Mouth: no lip lesion, mucus membranes moist Cardiovascular: S1S2 reg, no murmur, positive dorsalis pedis pulse bilateral, no edema Lungs: CTA bilateral, no rhonchi, no rales, no accessory muscle use Abdominal: soft, nontender to palpation, no guarding Ext: Right arm splint and right leg splint in place, strength 5 out of 5 of left upper and lower extremities and distal right upper and lower extremities, no gross muscle atrophy, no contractures Neuro: CN II-XI grossly intact, no gross focal neuro deficits Psych: Alert, oriented, appropriate affect Assessment: Alcohol abuse, impending withdrawal Thrombocythemia, 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 Right wrist x-ray revealed comminuted intra-articular fracture of the radius. Data Review: Laboratory evaluation revealed a platelet count of 147, sodium 135, CO2 19, BUN 6, creatinine 0.44, total bilirubin 1.4, AST 101, and alk phos 170 with urine tox positive for opiates. Plan: Continue to monitor for alcohol withdrawal with CIWA protocol Continue thiamine, folic acid, multivitamin Cardiac monitoring Defer management of pain control and DVT prophylaxis to the primary surgery service Preoperative evaluation The patient reports that at baseline he has excellent exercise tolerance and is able to perform all his ADLs independently without difficulty. Denies history of coronary artery disease or CHF. Reports no difficulty climbing multiple flights of stairs. Denies recently experiencing chest discomfort or shortness of breath. RCRI score: 0 points. 3.9% - 30 day risk of SC, cardiac arrest, or Continue to monitor the patient for alcohol withdrawal postsurgically. The patient is currently optimized for orthopedic surgical procedure with no immediate modifiable risk factors and no obvious nonsurgical alternatives. Past Medical History Past Medical History: Deep Vein Thrombosis (DVT) Additional Past Medical History / Comment(s): rt arm dvt, lower spinal fracture History of Any Multi-Drug Resistant Organisms: None Reported Past Surgical History: No Surgical Hx Reported Past Anesthesia/Blood Transfusion Reactions: No Reported Reaction Past Psychological History: No Psychological Hx Reported Smoking Status: Current every day smoker Past Alcohol Use History: Daily, Heavy Past Drug Use History: None Reported Medications and Allergies Home Medications Medication Instructions Recorded Confirmed Type No Known Home Medications 05/19/23 05/19/23 History Allergies Allergy/AdvReac Type Severity Reaction Status Date / Time Penicillins Allergy Rash/Hives Verified 05/19/23 11:59 Physical Exam Vitals: Vital Signs Temp Pulse Pulse Pulse Resp BP BP 05/20/23 01:26 97.7 F 88 18 134/79 05/19/23 22:45 98.9 F 83 18 165/80 05/19/23 22:00 89 19 140/98 05/19/23 18:58 98.3 F 90 18 157/80 05/19/23 17:00 78 18 141/81 05/19/23 15:20 98.0 F 68 18 122/69 05/19/23 14:30 77 18 117/82 05/19/23 12:32 71 18 140/95 05/19/23 11:08 70 18 136/86 05/19/23 10:00 80 18 149/89 05/19/23 09:00 90 18 138/92 05/19/23 08:13 97.6 F 90 18 162/103 Pulse Ox 05/20/23 01:26 96 05/19/23 22:45 95 05/19/23 22:00 98 05/19/23 18:58 96 05/19/23 17:00 97 05/19/23 15:20 96 05/19/23 14:30 95 05/19/23 12:32 96 05/19/23 11:08 95 05/19/23 10:00 95 05/19/23 09:00 94 L 05/19/23 08:13 90 L Intake and Output 05/19/23 05/19/23 05/20/23 14:59 22:59 06:59 Intake Total 236 Output Total 125 Balance 236 -125 Intake: Oral 236 Output: Urine 125 Other: Voiding Method Urinal Weight 70.307 kg 70.307 kg Results CBC & Chem 7: 05/19/23 08:52 05/19/23 08:52 Labs: Abnormal Lab Results - Last 24 Hours (Table) 05/19/23 05/19/23 05/19/23 Range/Units 08:52 08:52 08:52 Plt Count 147 L (150-450) k/uL Sodium 135 L (137-145) mmol/L Carbon Dioxide 19 L (22-30) mmol/L BUN 6 L (9-20) mg/dL Creatinine 0.44 L (0.66-1.25) mg/dL Total Bilirubin 1.4 H (0.2-1.3) mg/dL AST 101 H (17-59) U/L Alkaline Phosphatase 170 H (38-126) U/L Urine Protein Trace H (Negative) Urine Ketones 2+ H (Negative) Ur Leukocyte Esterase Large H (Negative) Urine Bacteria Rare H (None) /hpf Urine Opiates Screen Detected H (NotDetected)
[2023-05-20] MEDS ORDERED: LACTATED RINGERS 1,000 ML IV ONE ×2 (08:00→09:26)
[2023-05-20 09:16] LABS: Basophils # (A) 0.08 X 10*3/uL (0.00-0.10); Basophils % (A) 1.1 %; Eosinophils # (A) 0.03 X 10*3/uL (0.04-0.35); Eosinophils % (A) 0.4 %; HCT 39.3 % (39.6-50.0); HGB 13.4 g/dL (13.0-17.0); Lymphocytes # (A) 1.59 X 10*3/uL (0.90-5.00); Lymphocytes % (A) 22.5 %; MCH 31.9 pg (27.0-32.0); MCHC 34.1 g/dL (32.0-37.0); MCV 93.6 FL (80.0-97.0); Mean Platelet Volume 12.3 FL (9.5-12.2); Monocytes # (A) 0.97 X 10*3/uL (0.20-1.00); Monocytes % (A) 13.7 %; NRBC Per 100 WBC 0 X 10*3/uL (0.00-0.01); Neutrophils # (A) 4.35 X 10*3/uL (1.80-7.70); Neutrophils % (A) 61.7 %; Platelet Count 103 X 10*3/uL (140-440); RDW 16.2 % (11.5-14.5); WBC 7.06 X 10*3/uL (4.50-10.00)
[2023-05-20 09:22] LABS: Calcium 8.4 mg/dL (8.7-10.3); Carbon Dioxide 27.5 mmol/L (21.6-31.8); Chloride 102 mmol/L (96-109); Glucose 114 mg/dL (70-110); Sodium 137 mmol/L (135-145)
--- NOTE | 2023-05-20 09:59 | FL ---
EXAMINATION TYPE: FL guidance operating room, XR Hip Limited RT Intraoperative/procedural fluoroscopi c services were provided. Total fluoroscopy time is 51 seconds with a total of 3 submitted images to PACS. Please see the operative/procedural note for further details. DAP: 3.6044 Gycm2
[2023-05-20] MEDS ORDERED: HYDROmorphone 1 MG/ML 1 ML SYRINGE IVP PRN (10:33)
[2023-05-20] MEDS ORDERED: HYDROcodone/APAP 5-325MG 1 EACH TAB PO PRN (10:33)
[2023-05-20] MEDS ORDERED: HYDROmorphone 0.5 MG/0.5 ML SYRINGE IVP PRN (10:33)
[2023-05-20] MEDS ORDERED: MAGNESIUM HYDROXIDE 2,400 MG/30 ML CUP PO PRN (10:33)
[2023-05-20] MEDS ORDERED: NALOXONE 0.4 MG/ML 1 ML VIAL IV PRN (10:33)
--- NOTE | 2023-05-20 10:38 | P.OP ---
Date of Procedure: 05/20/23 Preoperative Diagnosis: 1.) Right hip intertrochanteric femur fracture Postoperative Diagnosis: 1.) Right hip intertrochanteric femur fracture Procedure(s) Performed: 1.) Right hip intertrochanteric femur fracture cephalomedullary nailing. (63543) Implants: 1.) [id number] IMN 2.) 40x5mm distal locking screw 3.) A 10.5x 100mm lag screw Anesthesia: GETA Surgeon: Alejandro Pinon Slitter Creaser Slotter Helper #1: Everett Matute Estimated Blood Loss (ml): 300 Pathology: none sent Condition: stable Disposition: PACU Description of Procedure: This is a 62 year old male who sustained a right intertrochanteric hip fracture after a fall from standing and presents today for surgical intervention. Risks and benefits of surgery were discussed with the patient including bleeding, damage to surrounding tissue, infection, need for further surgery as well as risks of anesthesia including pulmonary embolism and even and the patient wished to proceed with surgical intervention. The patient was seen in the pre- operative area by myself. Consent and H&P were completed and updated. The correct extremity was marked in the pre-operative area by myself and all other questions were answered. Operative Narrative: The patient was brought to the operating room by the department of anesthesia. Spinal anesthesia was performed. The patient was then transferred to the LENOX traction table. All bo prominences were well padded. Timeout was performed indicating the correct patient, procedure and laterality and all in the room were in agreement. Closed reduction maneuver was performed consisting of traction, adduction and internal rotation. The patient was then prepped and draped in normal sterile fashion. A 5cm longitudinal incision was made 3 finger breadths above the level of the greater trochanter. The gluteal fascia was split with scalpel and blunt fingertip dissection was taken down to the tip of the greater trochanter. A starting guidewire was then used to initiate the starting point at the tip of the greater trochanter, inline with the medullary canal on AP and lateral views. Guidewire was then advanced. While applying medially directed pressure on the lateral aspect of the femur to aid in reduction the opening reamer was then used to ream over the guide wire down to the level of the lesser trochanter. Ball tip guide wire was then entered into the reamed entry point and intramedullary placement was confirmed on X-ray. A 12.5 mm reamer was then used to ream the entire length of the femur. A Walker [id number] IMN was then inserted over the ball tip guidewire and impacted to the appropriate depth. Lag screw guide was then placed and skin incision was made along the lateral aspect of the femur, IT fascia was split and guidewire sleeve was inserted down to bone. Threaded k-wire was then advanced through the femoral neck to subchondral bone of the femoral head without penetrating the cortex and confirmed on AP/Lat views. Size was measured at 100mm. Drill was then set to 100mm and over drilling was performed. A 10.5x 100mm lag screw was then inserted to an appropriate TAD distance. Guide pin was then removed. Set screw was then placed proximally and a quarter back turn was performed and there was a small amount of play when lag screw was twisted indicating correct seating of the set screw in the lag screw rivets. Distal locking attachment was then set to static locking. Drilling was performed and measured with depth gauge. A 40x5mm distal locking screw was then placed. Final imaging was taken confirming appropriate reduction of fracture. Wounds were irrigated with sterile saline. Gluteal and IT fascia was closed with 1 vicryl suture, followed by subcutaneous closure with 2- 0 vicryl suture and puja and a sterile optifoam dressing. The patient was then awoken by the department of anesthesia and transferred to PACU in stable condition. Everett RICHARDSON was present for the case and assisted in hardware placement and fracture reduction. -Alejandro Pinon DO Orthopedic Surgeon
[2023-05-20] MEDS: FOLIC ACID-VIT B COMPLEX-VIT C 1 CAP PO SCH (11:43)
[2023-05-20] MEDS: THIAMINE 100 MG TAB PO SCH (11:44)
[2023-05-20] MEDS: SENNOSIDES 8.6 MG TAB PO SCH (11:44)
[2023-05-20 14:13] LABS: Basophils % (A) 1 %; Eosinophils % (A) 0 %; HCT 37.2 % (39.0-53.0); HGB 14.3 gm/dL (13.0-17.5); Lymphocytes # (A) 0.5 k/uL (1.0-4.8); Lymphocytes % (A) 6 %; MCH 37.9 pg (25.0-35.0); MCV 98.2 fL (80.0-100.0); Mean Platelet Volume 11.3; Monocytes # (A) 0.4 k/uL (0-1.0); Monocytes % (A) 5 %; Neutrophils # (A) 6.8 k/uL (1.3-7.7); Neutrophils % (A) 87 %; RBC 3.79 m/uL (4.30-5.90); RDW 15.5 % (11.5-15.5); WBC 7.8 k/uL (3.8-10.6)
[2023-05-20 14:19] LABS: MCHC 38.6 g/dL (31.0-37.0)
[2023-05-20 15:07] LABS: Platelet Count 88 k/uL (150-450)
[2023-05-20] MEDS: HYDROcodone/APAP 7.5-325MG 1 EACH TAB PO PRN ×2 (15:23→21:54)
[2023-05-20] MEDS: LACTATED RINGERS 1,000 ML IV SCH (17:35)
[2023-05-20] MEDS: SENNOSIDES-DOCUSATE SODIUM 1 EACH TAB PO SCH (20:40)
[2023-05-21] MEDS: LACTATED RINGERS 1,000 ML IV SCH ×4 (00:51→21:28)
[2023-05-21 04:26] LABS: African American GFR (CKD) >90 (>60 ml/min/1.73 sqM); Anion Gap 7 mmol/L; Blood Urea Nitrogen 12 mg/dL (9-20); Calcium 8.1 mg/dL (8.4-10.2); Carbon Dioxide 25 mmol/L (22-30); Chloride 100 mmol/L (98-107); Glucose 123 mg/dL (74-99); Non-African American GFR(CKD) >90 (>60 ml/min/1.73 sqM); Potassium 3.9 mmol/L (3.5-5.1); Sodium 132 mmol/L (137-145)
[2023-05-21] MEDS: HYDROcodone/APAP 7.5-325MG 1 EACH TAB PO PRN ×2 (05:44→22:02)
[2023-05-21] MEDS: FOLIC ACID-VIT B COMPLEX-VIT C 1 CAP PO SCH (09:56)
[2023-05-21] MEDS: SENNOSIDES 8.6 MG TAB PO SCH (09:56)
[2023-05-21] MEDS: ENOXAPARIN 40 MG/0.4 ML SYRINGE SQ SCH (09:56)
[2023-05-21] MEDS: THIAMINE 100 MG TAB PO SCH (09:56)
--- NOTE | 2023-05-21 11:02 | P.PN ---
Subjective Progress Note Date: 05/21/23 Principal diagnosis: Right hip IT fracture Patient was seen at bedside this morning lying the semirecumbent position with splint on right upper extremity and dressings present on right lower extremity over hip. Patient says his pain level is controlled well while in bed. Patient says he is looking forward to working with therapy later today. Patient says he did receive his walker yesterday after surgery. Pizano is in place currently. Patient denies any other changes this time. Patient denies chest pain, fever, shortness of breath, nausea, vomiting, change in vision. Objective - Vital Signs Vital signs: Vital Signs Temp 98 F 05/21/23 00:42 Pulse 89 05/21/23 00:42 Resp 18 05/21/23 00:42 BP 124/79 05/21/23 00:42 Pulse Ox 92 L 05/21/23 00:42 FiO2 Intake & Output 05/20/23 05/21/23 05/21/23 18:59 06:59 18:59 Intake Total 1100 Output Total 550 400 Balance 550 -400 Weight 70.307 kg Intake: IV 1100 Output: Urine 350 400 Estimated Blood Loss 200 - Exam Inspection: Surgical dressings present over right lateral hip. Negative for any significant drainage. Incisions appear to be healing well at this time. [place] are well aligned and intact. Maintain clean and dry. Splint present to right upper extremity. Negative for any significant deformity to the right hand/wrist. Sensation: Equal, symmetric, bilaterally intact throughout the upper and lower extremities. Palpation: Fair amount of TTP diffusely throughout the right hip near incisions. There is some moderate tenderness to the patient diffusely throughout the right wrist. NTTP throughout rest of the upper and lower extremities. Range of motion: There is some limited range of motion in the right hip and right knee secondary to referred pain to the right hip surgery yesterday. Patient has full range of motion in right ankle dorsi/plantar flexion. Patient is able to wiggle digits in right foot. Patient has point motion throughout left lower extremity exam. Patient has point motion throughout left upper extremity exam. Patient's range of motion throughout right upper extremity and shoulder elevation and abduction and external/internal rotation as well as elbow flexion/extension. Right wrist ROM not performed due to injury. Motor: 4-/5 in resisted plantar/dorsiflexion right ankle. 4-/5 in resisted right hip and right knee flexion/extension. 4+/5 in all major motor groups in left upper extremity and left lower extremity. Right wrist motor exam not performed due to injury. 4-/5 in resisted elbow flexion extension on the right secondary to referred pain to the wrist. Neurovascular: Radial pulses intact, 2+ bilaterally. Cap refill under 3 seconds in digits the upper and lower extremities. DP pulses palpable bilaterally. Special tests: Negative [place] bilaterally. - Labs CBC & Chem 7: 05/20/23 12:57 05/21/23 03:36 Labs: Abnormal Lab Results - Last 24 Hours (Table) 05/20/23 05/20/23 05/20/23 Range/Units 06:01 06:01 12:57 RBC 4.20 L 3.79 L (4.40-5.60) X 10*6/uL Hct 39.3 L 37.2 L (39.6-50.0) % MCH 37.9 H (25.0-35.0) pg MCHC 38.6 H (31.0-37.0) g/dL RDW 16.2 H (11.5-14.5) % Plt Count 103 L 88 L (140-440) X 10*3/uL MPV 12.3 H (9.5-12.2) FL Lymphocytes # 0.5 L (1.0-4.8) k/uL Eosinophils # 0.03 L (0.04-0.35) X 10*3/uL Sodium (137-145) mmol/L Creatinine 0.5 L (0.6-1.5) mg/dL Glucose 114 H (70-110) mg/dL Calcium 8.4 L (8.7-10.3) mg/dL 05/21/23 Range/Units 03:36 RBC (4.40-5.60) X 10*6/uL Hct (39.6-50.0) % MCH (25.0-35.0) pg MCHC (31.0-37.0) g/dL RDW (11.5-14.5) % Plt Count (140-440) X 10*3/uL MPV (9.5-12.2) FL Lymphocytes # (1.0-4.8) k/uL Eosinophils # (0.04-0.35) X 10*3/uL Sodium 132 L (137-145) mmol/L Creatinine 0.50 L (0.6-1.5) mg/dL Glucose 123 H (70-110) mg/dL Calcium 8.1 L (8.7-10.3) mg/dL Assessment and Plan Assessment: 1. Right hip IT fracture; right distal radius fracture Postoperative day 1 status post right hip IM nail Plan: 1. Right hip IT fracture; right distal radius fracture - right hip IM nail surgery performed yesterday, 05/20/2023. Patient stable at bedside this morning. Dressings are clean, dry, intact. Maintain dressings at this time. Work with therapy daily. Pizano in place. Pain medication as needed. We'll continue to follow patient during his stay in hospital. Plan for discharge to rehab within the next few days. 2. Appreciate medical management 3. Pain management - tylenol; [place] 4. DVT prophylaxis -Lovenox 5. GI prophylaxis -senna 6. PT/OT -weightbearing as tolerated with a platform walker and assistance as needed 7. Encourage incentive spirometer use 8. Discharge planning - plan for discharge to rehab within the next few days Time with Patient: Less than 30
--- NOTE | 2023-05-21 11:05 | P.PN ---
Subjective Progress Note Date: 05/21/23 Patient is a 63-year-old male with a PMH of EtOH abuse who had presented to the emergency room after a fall. The patient reports that he fell on 05/18 at around 6 PM while he was drinking heavily. He reports falling onto his right side and wasn't able to get back up. He denied losing consciousness. In the emergency room, right femur x-rays revealed a comminuted intratrochanteric fracture of the right femur with several displaced fragments. Right wrist x-ray revealed comminuted intra-articular fracture of the radius. Patient reports that baseline he drinks half a pint of hard liquor daily. He denies history of alcohol withdrawal or DTs. He reports his last drink was 2 days ago. Laboratory evaluation revealed a platelet count of 147, sodium 135, CO2 19, BUN 6, creatinine 0.44, total bilirubin 1.4, AST 101, and alk phos 170 with urine tox positive for opiates. Underwent right hip intertrochanteric femur fracture cephalomedullary nailing on 05/20. 05/21 Patient was seen and examined. He reports right hip pain, 5/10 in severity. No nausea or vomiting. No other complaints. Pizano catheter in place. BMP Na 132, Cr 0.5, glu 123, Ca 8.1. General: non toxic, no distress, appears at stated age, normal weight Derm: no unusual rashes/lesions, warm Head: atraumatic, normocephalic, symmetric Eyes: EOMI, no lid lag, anicteric sclera ENT: Nose and ears atraumatic Neck: No cervical lymphadenopathy, trachea midline, supple Cardiovascular: S1S2 reg, no murmur, no edema Lungs: Breathing comfortably, no accessory muscle use Ext: Right arm splint and right leg splint in place Neuro: no gross focal neuro deficits Psych: Alert, oriented, appropriate affect Based on my assessment of this patient, this patient meets a moderate complexity level of care. Patient has acute diagnosis of intratrochanteric fracture of the right femur with several displaced fragments and comminuted intra-articular fracture of the radius which poses a threat to life or bodily function. Alcohol abuse, impending withdrawal: CIWA protocol with Ativan IV PRN per protocol. Thrombocytopenia: Likely due to ongoing alcohol abuse Elevated total bilirubin Traumatic right hip femoral and radial fractures CODE STATUS: FULL CODE DVT Prophylaxis: Lovenox SQ GI Prophylaxis: Designated medical POA if patient is not able to make medical decisions for themselves: I have reviewed the following organization development consultant notes: I have reviewed the results of the following tests: BMP I have ordered the following tests: Pending CBC I have discussed the care of this patient with the following independent historian: I have independently interpreted the following test below: I have discussed the management of this patient with the following physician: Objective - Vital Signs Vital signs: Vital Signs Temp 97.9 F 05/21/23 08:00 Pulse 67 05/21/23 08:00 Resp 17 05/21/23 08:00 BP 110/68 05/21/23 08:00 Pulse Ox 90 L 05/21/23 08:52 FiO2 Intake & Output 05/20/23 05/21/23 05/21/23 18:59 06:59 18:59 Intake Total 1100 Output Total 550 400 Balance 550 -400 Weight 70.307 kg Intake: IV 1100 Output: Urine 350 400 Estimated Blood Loss 200 - Labs CBC & Chem 7: 05/20/23 12:57 05/21/23 03:36 Labs: Abnormal Lab Results - Last 24 Hours (Table) 05/20/23 05/21/23 Range/Units 12:57 03:36 RBC 3.79 L (4.30-5.90) m/uL Hct 37.2 L (39.0-53.0) % MCH 37.9 H (25.0-35.0) pg MCHC 38.6 H (31.0-37.0) g/dL Plt Count 88 L (150-450) k/uL Lymphocytes # 0.5 L (1.0-4.8) k/uL Sodium 132 L (137-145) mmol/L Creatinine 0.50 L (0.66-1.25) mg/dL Glucose 123 H (74-99) mg/dL Calcium 8.1 L (8.4-10.2) mg/dL
--- NOTE | 2023-05-21 13:11 | PN ---
PROGRESS NOTE DATE OF SERVICE: 05/21/2023 CHIEF COMPLAINT: Fracture of the right hip and right wrist. HISTORY OF PRESENT ILLNESS: This gentleman is stable, not having any difficulty so far. PHYSICAL EXAMINATION: VITAL SIGNS: Normal. CHEST: Clear. CARDIAC: Normal. IMPRESSION: Status post right hip fracture open reduction and internal fixation and fracture of the right wrist. PLAN: Physical therapy and rehab. Had arranged discharge. MMODL / IJN: [id number] /
--- NOTE | 2023-05-21 13:20 | PN ---
PROGRESS NOTE DATE OF SERVICE: 05/20/2023 CHIEF COMPLAINT: Fracture of the right wrist and right hip. HISTORY OF PRESENT ILLNESS: This gentleman is doing fairly well. PHYSICAL EXAMINATION: VITAL SIGNS: Normal. GENERAL: He is fairly comfortable. Physical exam is unchanged. CHEST: Clear. CARDIAC: Normal. ABDOMEN: Soft, nontender. IMPRESSION: Fracture of the right wrist and right hip. PLAN: Continue with post rehab and start to consider discharge planning. MMODL / IJN: [id number] /
[2023-05-21] MEDS: SENNOSIDES-DOCUSATE SODIUM 1 EACH TAB PO SCH (21:27)
[2023-05-22] MEDS: HYDROcodone/APAP 7.5-325MG 1 EACH TAB PO PRN ×3 (07:04→18:55)
--- NOTE | 2023-05-22 07:36 | P.PN ---
Subjective Progress Note Date: 05/22/23 Principal diagnosis: Right hip IT fracture Patient was seen at bedside this morning lying the semirecumbent position with splint on right upper extremity and dressings present on right lower extremity over hip. Patient says his pain level is controlled well while in bed. Patient says he is looking forward to working with therapy later today. Pizano is in place currently. Patient denies any other changes this time. Patient denies chest pain, fever, shortness of breath, nausea, vomiting, change in vision. Objective - Vital Signs Vital signs: Vital Signs Temp 97.9 F 05/22/23 01:39 Pulse 66 05/22/23 01:39 Resp 18 05/22/23 01:39 BP 108/62 05/22/23 01:39 Pulse Ox 94 L 05/22/23 01:39 FiO2 Intake & Output 05/21/23 05/22/23 05/22/23 18:59 06:59 18:59 Intake Total 1810 Output Total 600 1500 Balance 1210 -1500 Intake: Intake, IV Titration 1610 Amount Lactated Ringers 1,000 ml 1560 @ 130 mls/hr IV .Q7H42M [facility] Rx#:[id number] ceFAZolin 2 gm In Sodium 50 Chloride 0.9% 50 ml @ 100 mls/hr IVPB Q8HR [facility] Rx# :[id number] Oral 200 Output: Urine 600 1500 Other: Voiding Method Indwelling Catheter Indwelling Catheter - Exam Inspection: Surgical dressings present over right lateral hip. Negative for any significant drainage. Incisions appear to be healing well at this time. [place] are well aligned and intact. Maintain clean and dry. Splint present to right upper extremity. Negative for any significant deformity to the right h and/wrist. Sensation: Equal, symmetric, bilaterally intact throughout the upper and lower extremities. Palpation: Fair amount of TTP diffusely throughout the right hip near incisions. There is some moderate tenderness to the patient diffusely throughout the right wrist. NTTP throughout rest of the upper and lower extremities. Range of motion: There is some limited range of motion in the right hip and right knee secondary to referred pain to the right hip surgery yesterday. Patient has full range of motion in right ankle dorsi/plantar flexion. Patient is able to wiggle digits in right foot. Patient has point motion throughout left lower extremity exam. Patient has point motion throughout left upper extremity exam. Patient's range of motion throughout right upper extremity and shoulder elevation and abduction and external/internal rotation as well as elbow flexion/extension. Right wrist ROM not performed due to injury. Motor: 4-/5 in resisted plantar/dorsiflexion right ankle. 4-/5 in resisted right hip and right knee flexion/extension. 4+/5 in all major motor groups in left upper extremity and left lower extremity. Right wrist motor exam not performed due to injury. 4-/5 in resisted elbow flexion extension on the right secondary to referred pain to the wrist. Neurovascular: Radial pulses intact, 2+ bilaterally. Cap refill under 3 seconds in digits the upper and lower extremities. DP pulses palpable bilaterally. Special tests: Negative Homans bilaterally. - Labs CBC & Chem 7: 05/20/23 12:57 05/21/23 03:36 Labs: Microbiology - Last 24 Hours (Table) 05/19/23 08:52 Urine Culture - Preliminary Urine,Clean Catch Gram Neg Bacilli Assessment and Plan Assessment: 1. Right hip IT fracture; right distal radius fracture Postoperative day 2 status post right hip IM nail Plan: 1. Right hip IT fracture; right distal radius fracture - right hip IM nail surgery performed 05/20/2023. Patient stable at bedside this morning. Dressings are clean, dry, intact. Maintain dressings at this time. Work with therapy daily. Pizano in place. Pain medication as needed. We'll continue to follow patient during his stay in hospital. Plan for discharge to rehab within the next few days. 2. Appreciate medical management 3. Pain management - tylenol; [place] 4. DVT prophylaxis -Lovenox 5. GI prophylaxis -senna 6. PT/OT -weightbearing as tolerated with a platform walker and assistance as needed 7. Encourage incentive spirometer use 8. Discharge planning - plan for discharge to rehab within the next few days Time with Patient: Less than 30
[2023-05-22] MEDS: LACTATED RINGERS 1,000 ML IV SCH ×2 (09:05→14:18)
[2023-05-22] MEDS: SENNOSIDES 8.6 MG TAB PO SCH (09:07)
[2023-05-22] MEDS: THIAMINE 100 MG TAB PO SCH (09:09)
[2023-05-22] MEDS: FOLIC ACID-VIT B COMPLEX-VIT C 1 CAP PO SCH (09:10)
[2023-05-22] MEDS: ENOXAPARIN 40 MG/0.4 ML SYRINGE SQ SCH (09:10)
--- NOTE | 2023-05-22 12:00 | P.PN ---
Subjective Progress Note Date: 05/22/23 Patient is a 63-year-old male with a PMH of EtOH abuse who had presented to the emergency room after a fall. The patient reports that he fell on 05/18 at around 6 PM while he was drinking heavily. He reports falling onto his right side and wasn't able to get back up. He denied losing consciousness. In the emergency room, right femur x-rays revealed a comminuted intratrochanteric fracture of the right femur with several displaced fragments. Right wrist x-ray revealed comminuted intra-articular fracture of the radius. Patient reports that baseline he drinks half a pint of hard liquor daily. He denies history of alcohol withdrawal or DTs. He reports his last drink was 2 days ago. Laboratory evaluation revealed a platelet count of 147, sodium 135, CO2 19, BUN 6, creatinine 0.44, total bilirubin 1.4, AST 101, and alk phos 170 with urine tox positive for opiates. Underwent right hip intertrochanteric femur fracture cephalomedullary nailing on 05/20. 05/21 Patient was seen and examined. He reports right hip pain, 5/10 in severity. No nausea or vomiting. No other complaints. Pizano catheter in place. BMP Na 132, Cr 0.5, glu 123, Ca 8.1. 05/22 Patient was seen and examined. He reports right hip pain well controlled. No other complaints. General: non toxic, no distress, appears at stated age, normal weight Derm: no unusual rashes/lesions, warm Head: atraumatic, normocephalic, symmetric Eyes: EOMI, no lid lag, anicteric sclera ENT: Nose and ears atraumatic Neck: No cervical lymphadenopathy, trachea midline, supple Cardiovascular: S1S2 reg, no murmur, no edema Lungs: Breathing comfortably, no accessory muscle use Ext: Right arm splint and right leg splint in place Neuro: no gross focal neuro deficits Psych: Alert, oriented, appropriate affect Based on my assessment of this patient, this patient meets a moderate complexity level of care. Patient has acute diagnosis of intratrochanteric fracture of the right femur with several displaced fragments and comminuted intra-articular fracture of the radius which poses a threat to life or bodily function. Alcohol abuse, impending withdrawal: CIWA protocol with Ativan IV PRN per protocol. Thrombocytopenia: Likely due to ongoing alcohol abuse Elevated total bilirubin Traumatic right hip femoral and radial fractures CODE STATUS: FULL CODE DVT Prophylaxis: Lovenox SQ GI Prophylaxis: Designated medical POA if patient is not able to make medical decisions for themselves: I have reviewed the following pmo consultant notes: I have reviewed the results of the following tests: I have ordered the following tests: I have discussed the care of this patient with the following independent historian: I have independently interpreted the following test below: I have discussed the management of this patient with the following physician: Objective - Vital Signs Vital signs: Vital Signs Temp 97.7 F 05/22/23 07:55 Pulse 68 05/22/23 07:55 Resp 18 05/22/23 07:55 BP 124/70 05/22/23 07:55 Pulse Ox 98 05/22/23 09:29 FiO2 Intake & Output 05/21/23 05/22/23 05/22/23 18:59 06:59 18:59 Intake Total 1810 Output Total 600 1500 Balance 1210 -1500 Intake: Intake, IV Titration 1610 Amount Lactated Ringers 1,000 ml 1560 @ 130 mls/hr IV .Q7H42M [facility] Rx#:[id number] ceFAZolin 2 gm In Sodium 50 Chloride 0.9% 50 ml @ 100 mls/hr IVPB Q8HR [facility] Rx# :[id number] Oral 200 Output: Urine 600 1500 Other: Voiding Method Indwelling Catheter Indwelling Catheter - Labs CBC & Chem 7: 05/20/23 12:57 05/21/23 03:36 Labs: Microbiology - Last 24 Hours (Table) 05/19/23 08:52 Urine Culture - Preliminary Urine,Clean Catch Gram Neg Bacilli
[2023-05-22 13:03] LABS: Basophils # (A) 0.1 k/uL (0-0.2); Basophils % (A) 1 %; Eosinophils # (A) 0.1 k/uL (0-0.7); Eosinophils % (A) 1 %; HCT 37.6 % (39.0-53.0); HGB 12.5 gm/dL (13.0-17.5); Lymphocytes # (A) 1.9 k/uL (1.0-4.8); Lymphocytes % (A) 28 %; MCH 33.3 pg (25.0-35.0); MCHC 33.1 g/dL (31.0-37.0); MCV 100.5 fL (80.0-100.0); Macrocytosis Slight; Mean Platelet Volume 10.3; Monocytes # (A) 0.5 k/uL (0-1.0); Monocytes % (A) 7 %; Neutrophils % (A) 60 %; RBC 3.74 m/uL (4.30-5.90); RDW 14.9 % (11.5-15.5); WBC 6.6 k/uL (3.8-10.6)
[2023-05-22 13:07] LABS: Platelet Count 85 k/uL (150-450)
[2023-05-22] MEDS: SENNOSIDES-DOCUSATE SODIUM 1 EACH TAB PO SCH (20:13)
--- NOTE | 2023-05-22 21:38 | PN ---
PROGRESS NOTE DATE OF SERVICE: 05/22/2023 CHIEF COMPLAINT: Fracture of the right hip and right wrist. HISTORY OF PRESENT ILLNESS: This gentleman is doing fairly well. Discharge possibilities are being investigated. He would like to try to go home. PHYSICAL EXAMINATION: GENERAL: He is awake and alert. CHEST: Clear. CARDIAC: Normal. ABDOMEN: Soft, nontender. IMPRESSION: Status post fracture of the right wrist and right hip. PLAN: Await discharge plan. MMODL / IJN: [id number] /
[2023-05-23] MEDS: LACTATED RINGERS 1,000 ML IV SCH ×4 (00:45→22:05)
[2023-05-23] MEDS: HYDROcodone/APAP 7.5-325MG 1 EACH TAB PO PRN ×4 (00:47→18:52)
[2023-05-23] MEDS: SENNOSIDES 8.6 MG TAB PO SCH (08:06)
[2023-05-23] MEDS: ENOXAPARIN 40 MG/0.4 ML SYRINGE SQ SCH (08:06)
[2023-05-23] MEDS: THIAMINE 100 MG TAB PO SCH (08:06)
[2023-05-23] MEDS: FOLIC ACID-VIT B COMPLEX-VIT C 1 CAP PO SCH (08:06)
--- NOTE | 2023-05-23 11:28 | P.PN ---
Progress Note - Text Progress Note Date: 05/23/23 Dr. Sainz has assumed care of this patient for medical management. We will sign off.
--- NOTE | 2023-05-23 12:08 | P.PN ---
Subjective Progress Note Date: 05/23/23 Principal diagnosis: Right hip IT fracture Patient was seen at bedside this morning sitting up in the edge of and working with occupational therapy. Patient says she did do well with physical therapy this morning and got up out of bed and walked around the room using platform walker. Patient says he is hoping to go home upon discharge from the hospital. Patient says she has urinated since Pizano was removed yesterday. Patient says he has not had bowel movement yet, however, patient says he has been passing gas. Patient denies chest pain, fever, shortness of breath, nausea, vomiting, change in vision, loss of bowel/bladder control. Objective - Vital Signs Vital signs: Vital Signs Temp 98.3 F 05/23/23 07:33 Pulse 69 05/23/23 07:33 Resp 17 05/23/23 07:33 BP 125/73 05/23/23 07:33 Pulse Ox 92 L 05/23/23 07:42 FiO2 Intake & Output 05/22/23 05/23/23 05/23/23 18:59 06:59 18:59 Intake Total 180 1140 Output Total 575 1000 Balance -395 -1000 1140 Intake: Intake, IV Titration 1040 Amount Lactated Ringers 1,000 ml 1040 @ 130 mls/hr IV .Q7H42M [facility] Rx#:[id number] Oral 180 100 Output: Urine 575 1000 Other: Voiding Method Indwelling Catheter Indwelling Catheter - Exam Inspection: Surgical dressings present over right lateral hip. Negative for any significant drainage. Incisions appear to be healing well at this time. [place] are well aligned and intact. Maintain clean and dry. Splint present to right upper extremity. Negative for any significant deformity to the right hand/wrist. Sensation: Equal, symmetric, bilaterally intact throughout the upper and lower extremities. Palpation: Fair amount of TTP diffusely throughout the right hip near incisions. There is some moderate tenderness to the patient diffusely throughout the right wrist. NTTP throughout rest of the upper and lower extremities. Range of motion: There is some limited range of motion in the right hip and right knee secondary to referred pain to the right hip surgery yesterday. Patient has full range of motion in right ankle dorsi/plantar flexion. Patient is able to wiggle digits in right foot. Patient has point motion throughout left lower extremity exam. Patient has point motion throughout left upper extremity exam. Patient's range of motion throughout right upper extremity and shoulder elevation and abduction and external/internal rotation as well as elbow flexion/extension. Right wrist ROM not performed due to injury. Motor: 4-/5 in resisted plantar/dorsiflexion right ankle. 4-/5 in resisted right hip and right knee flexion/extension. 4+/5 in all major motor groups in left upper extremity and left lower extremity. Right wrist motor exam not performed due to injury. 4-/5 in resisted elbow flexion extension on the right secondary to referred pain to the wrist. Neurovascular: Radial pulses intact, 2+ bilaterally. Cap refill under 3 seconds in digits the upper and lower extremities. DP pulses palpable bilaterally. Special tests: Negative Homans bilaterally. - Labs CBC & Chem 7: 05/22/23 12:25 05/21/23 03:36 Labs: Abnormal Lab Results - Last 24 Hours (Table) 05/22/23 Range/Units 12:25 RBC 3.74 L (4.30-5.90) m/uL Hgb 12.5 L (13.0-17.5) gm/dL Hct 37.6 L (39.0-53.0) % MCV 100.5 H (80.0-100.0) fL Plt Count 85 L (150-450) k/uL Microbiology - Last 24 Hours (Table) 05/19/23 08:52 Urine Culture - Final Urine,Clean Catch Escherichia coli Assessment and Plan Assessment: 1. Right hip IT fracture; right distal radius fracture Postoperative day 3 status post right hip IM nail Plan: 1. Right hip IT fracture; right distal radius fracture - right hip IM nail surgery performed 05/20/2023. Patient stable at bedside this morning. Dressings are clean, dry, intact. Maintain dressings at this time. Work with therapy daily. Pizano in place. Pain medication as needed. We'll continue to follow patient during his stay in hospital. Patient did do well with therapy. Possible discharge home with home care tmrw, 05/24/2023. 2. Appreciate medical management 3. Pain management - tylenol; [place] 4. DVT prophylaxis -Lovenox 5. GI prophylaxis -senna 6. PT/OT -weightbearing as tolerated with a platform walker and assistance as needed 7. Encourage incentive spirometer use 8. Discharge planning - Possible discharge home with home care tmrw, 05/24/2023. Time with Patient: Less than 30
[2023-05-23] MEDS: SENNOSIDES-DOCUSATE SODIUM 1 EACH TAB PO SCH (19:32)
[2023-05-24] MEDS: HYDROcodone/APAP 7.5-325MG 1 EACH TAB PO PRN (00:51)
--- NOTE | 2023-05-24 02:43 | PN ---
PROGRESS NOTE DATE OF SERVICE: 05/23/2023 CHIEF COMPLAINT: Fracture of the right hip and right wrist. HISTORY OF PRESENT ILLNESS: This gentleman is doing well. He is up and about. He is waiting for discharge plan. PHYSICAL EXAMINATION: CHEST: Clear. CARDIAC: Normal. ABDOMEN: Soft, nontender. IMPRESSION: 1. Status post open reduction and internal fixation of right hip. 2. Right wrist fracture. 3. Alcoholism. PLAN: Await discharge plan. MMMONSE / NELSON: [id number] /
[2023-05-24] MEDS: LACTATED RINGERS 1,000 ML IV SCH ×3 (06:53→22:10)
--- NOTE | 2023-05-24 08:16 | CONS ---
CONSULTATION T4 in the emergency room. CHIEF COMPLAINT: Fall with pain in the right hip and right wrist. HISTORY OF PRESENT ILLNESS: This gentleman was raking leaves when he apparently tripped over a curb, fell, landed on his right right arm. He had to crawl into the house. He came to the emergency room, where he was found to have a fracture of the right hip and right wrist. He is a generally healthy, although has COPD and he is alcoholic. REVIEW OF SYSTEMS: He denies headaches, focal neurologic signs or symptoms, change in vision, chest pain, palpitations, syncope, abdominal pain, melena, hematochezia, renal failure, diabetes, etc. PAST MEDICAL HISTORY: Generally unremarkable. FAMILY HISTORY: Generally unremarkable. PERSONAL AND SOCIAL HISTORY: Generally unremarkable. MEDICATIONS: He is not taking any medications. PAST SURGICAL HISTORY: He had no other significant surgeries in the past. LABORATORY DATA: In the emergency room, laboratory studies were normal except for low GFR. PHYSICAL EXAMINATION: VITAL SIGNS: Normal. Blood pressure is 126/74. He is in sinus rhythm. HEAD, EARS, EYES, NOSE, AND MOUTH: Normal. NECK: Veins are not distended. Carotids are normal. There is no bruit. LUNGS: Breath sounds are heard bilaterally. CARDIAC: Normal sinus rhythm. ABDOMEN: Soft and nontender. No apparent visceromegaly or masses. EXTREMITIES: Normal except for the right wrist, which was dressed and the external rotation of the right leg. NEUROLOGICAL: Intact. IMPRESSION: 1. Fracture of right hip. 2. Fracture of the right wrist. 3. Chronic obstructive pulmonary disease. 4. Alcoholism. 5. Renal failure. RECOMMENDATIONS: None. He will have to be watched for DTs. He is cleared for surgery. MMODL / IJN: [id number] /
[2023-05-24] MEDS: ENOXAPARIN 40 MG/0.4 ML SYRINGE SQ SCH (08:54)
[2023-05-24] MEDS: FOLIC ACID-VIT B COMPLEX-VIT C 1 CAP PO SCH (08:54)
[2023-05-24] MEDS: SENNOSIDES 8.6 MG TAB PO SCH (08:55)
[2023-05-24] MEDS: THIAMINE 100 MG TAB PO SCH (08:55)
--- NOTE | 2023-05-24 11:29 | P.PN ---
Subjective Progress Note Date: 05/24/23 Principal diagnosis: Right hip IT fracture Patient seen at bedside this morning lying in semirecumbent position with sling and splint right upper extremity. Dressing is present over right lateral hip. Patient says he did get up with therapy yesterday however at this time he is thinking is best for him to go to rehab upon discharge from the hospital. Patient says he has been urinated several times since foot was removed. He has been using platform walker with therapy. Patient says he has not had bowel movement yet, however, patient says he has been passing gas. Patient denies chest pain, fever, shortness of breath, nausea, vomiting, change in vision, loss of bowel/bladder control. Objective - Vital Signs Vital signs: Vital Signs Temp 98.2 F 05/24/23 07:51 Pulse 73 05/24/23 07:51 Resp 16 05/24/23 07:51 BP 127/73 05/24/23 07:51 Pulse Ox 93 L 05/24/23 07:51 FiO2 Intake & Output 05/23/23 05/24/23 05/24/23 18:59 06:59 18:59 Intake Total 1140 Output Total 300 200 Balance 840 -200 Intake: Intake, IV Titration 1040 Amount Lactated Ringers 1,000 ml 1040 @ 130 mls/hr IV .Q7H42M [facility] Rx#:[id number] Oral 100 Output: Urine 300 200 Other: # Voids 950 - Exam Inspection: Surgical dressings present over right lateral hip. Negative for any significant drainage. Incisions appear to be healing well at this time. [place] are well aligned and intact. Maintain clean and dry. Splint present to right upper extremity. Negative for any significant deformity to the right hand/wrist. Sensation: Equal, symmetric, bilaterally intact throughout the upper and lower extremities. Palpation: Fair amount of TTP diffusely throughout the right hip near incisions. There is some moderate tenderness to the patient diffusely throughout the right wrist. NTTP throughout rest of the upper and lower extremities. Range of motion: There is some limited range of motion in the right hip and right knee secondary to referred pain to the right hip surgery yesterday. [place] has full range of motion in right ankle dorsi/plantar flexion. Patient is able to wiggle digits in right foot. Patient has point motion throughout left lower extremity exam. Patient has point motion throughout left upper extremity exam. Patient's range of motion throughout right upper extremity and shoulder elevation and abduction and external/internal rotation as well as elbow flexion/extension. Right wrist ROM not performed due to injury. Motor: 4-/5 in resisted plantar/dorsiflexion right ankle. 4-/5 in resisted right hip and right knee flexion/extension. 4+/5 in all major motor groups in left upper extremity and left lower extremity. Right wrist motor exam not performed due to injury. 4-/5 in resisted elbow flexion extension on the right secondary to referred pain to the wrist. Neurovascular: Radial pulses intact, 2+ bilaterally. Cap refill under 3 seconds in digits the upper and lower extremities. DP pulses palpable bilaterally. Special tests: Negative Homans bilaterally. - Labs CBC & Chem 7: 05/22/23 12:25 05/21/23 03:36 Assessment and Plan Assessment: 1. Right hip IT fracture; right distal radius fracture Postoperative day 4 status post right hip IM nail Plan: 1. Right hip IT fracture; right distal radius fracture - right hip IM nail surgery performed 05/20/2023. Patient stable at bedside this morning. Dressings are clean, dry, intact. Maintain dressings at this time. [place] bandage was placed over splint to right upper extremity in a sling placed. Right upper extremity. Work with therapy daily. Pain medication as needed. We'll continue to follow patient during his stay in hospital. Plan for discharge to rehab tomorrow, , 05/25/2023. 2. Appreciate medical management 3. Pain management - tylenol; [place] 4. DVT prophylaxis -Lovenox 5. GI prophylaxis -senna 6. PT/OT -weightbearing as tolerated with a platform walker and assistance as needed 7. Encourage incentive spirometer use 8. Discharge planning - Plan for discharge to rehab tomorrow, , 05/25/2023. Time with Patient: Less than 30
[2023-05-24] MEDS: SENNOSIDES-DOCUSATE SODIUM 1 EACH TAB PO SCH (20:16)
--- NOTE | 2023-05-25 00:55 | PN ---
PROGRESS NOTE DATE OF SERVICE: 05/24/2023 CHIEF COMPLAINT: Fracture of the right wrist and right hip. HISTORY OF PRESENT ILLNESS: This gentleman is doing well and is awaiting a discharge plan. PHYSICAL EXAMINATION: VITAL SIGNS: Normal. CHEST: Clear. CARDIAC: Normal. IMPRESSION: Fracture of the right distal radius and right hip. PLAN: Home or to rehab anytime he is cleared by Surgery. MMODL / IJN: [id number] /
[2023-05-25 01:03] VITALS: RESP 18
[2023-05-25] MEDS: ACETAMINOPHEN TAB 325 MG TAB PO PRN ×2 (06:15→13:01)
[2023-05-25] MEDS: LACTATED RINGERS 1,000 ML IV SCH ×2 (06:28→10:24)
[2023-05-25] MEDS: ENOXAPARIN 40 MG/0.4 ML SYRINGE SQ SCH (08:32)
[2023-05-25] MEDS: FOLIC ACID-VIT B COMPLEX-VIT C 1 CAP PO SCH (08:32)
[2023-05-25] MEDS: SENNOSIDES 8.6 MG TAB PO SCH (08:32)
[2023-05-25] MEDS: THIAMINE 100 MG TAB PO SCH (08:32)
[2023-05-25 08:33] VITALS: BP 115/79; PULSE 84; TEMP 98.4
[2023-05-25 09:49] VITALS: BMI 20.9
--- NOTE | 2023-05-25 09:52 | P.PN ---
Subjective Progress Note Date: 05/25/23 Principal diagnosis: Status post IM nail right intertrochanteric femur fracture, right distal radius fracture Patient evaluated at bedside today, he is resting in his hospital bed. According to nursing, patient did take off the splint is refusing to utilize at this time. He states that the hip is feeling okay this point, he is been weightbearing with the assistance of walker. He states that the wrist is feeling a lot better also. Hopeful discharged to subacute rehab today. He has no other orthopedic complaints. Objective - Vital Signs Vital signs: Vital Signs Temp 98.4 F 05/25/23 08:00 Pulse 84 05/25/23 08:00 Resp 18 05/25/23 08:00 BP 115/79 05/25/23 08:00 Pulse Ox 96 05/25/23 08:00 FiO2 Intake & Output 05/24/23 05/25/23 05/25/23 18:59 06:59 18:59 Output Total 1400 Balance -1400 Weight 70.307 kg Output: Urine 1400 Other: # Voids 5 - Exam Right lower extremity: Incision is clean, dry, and intact. The foam dressing is in good condition. There is minimal soft tissue swelling and ecchymosis surrounding the medial and lateral aspects of the incision. Calf is soft, no tenderness with palpation. Plantar flexion, dorsiflexion, EHL, FHL are intact. Sensory exam to light touch throughout the extremity is intact, dorsal pedis pulses 2+. Right upper extremity: Ecchymosis present throughout the extremity, there is no significant soft tissue swelling or open lesions. Patient does demonstrate tenderness with palpation of the distal radius. She is able wiggle all the fingers with no difficulty. His sensory exam to light touch is intact throughout the extremity. Radial and ulna r pulses are 2+ - Labs CBC & Chem 7: 05/22/23 12:25 05/21/23 03:36 Assessment and Plan Assessment: Status post IM nail right intertrochanteric femur fracture Right distal radius fracture Other medical comorbidities Plan: Discussed with patient the need to utilize some type of splinting for the right upper extremity. Patient was made aware that this fracture is aligned very well at this time and if it does move he may require surgery. We discussed the possibility of a Velcro wrist splint, he is in good understanding and would like to try this. A prescription was placed and this was also discussed the case management. Patient will utilize his splint over the next 4-6 weeks. Weight-bear as tolerated on the right lower extremity, bandages to be changed prior to discharge to subacute rehab today DVT prophylaxis, Lovenox will be utilized daily Pain control, patient like to hold off on [place], will utilize basic Tylenol for pain control Medical recommendations appreciated Discharge planning: plan for discharge to subacute rehab today Time with Patient: Less than 30
--- NOTE | 2023-05-25 10:27 | P.DS ---
Providers Date of admission: 05/19/23 12:19 Expected date of discharge: 05/25/23 Attending physician: Alejandro Pinon DO Consults: 05/23/23 12:28 Consult Physician Routine Consulting Provider: Homero Sainz Reason/Comments: MEDICAL MANAGEMENT Do you want consulting provider notified?: Already Contacted Primary care physician: Homero Sainz Hospital Course: Date of admission: 05/19/2023 Date of discharge: 05/25/2023 Admission diagnosis: Right intertrochanteric femur fracture, right distal radius fracture Discharge diagnosis: same Attending physician: Dr. Pinon Surgical procedures: Intramedullary nail right intertrochanteric femur fracture Brief history: Patient is a 62-year-old male who presented to [facility] on 05/19/2023 after sustaining a fall at home. Upon arrival to the hospital, imaging test did demonstrate a displaced right intertrochanteric femur fracture and minimally displaced right distal radius fracture. Patient was admitted to [facility] with plan for surgical intervention by our orthopedic group. Hospital course: Details of patient's surgery can be found in operative report. Patient tolerated the procedure well and was subsequently transported to orthopedic floor. Patient's orthopeidc and medical care was provided daily. Patient had daily laboratory tests performed for evaluation of overall blood counts. Patient had daily physical therapy to include strengthening range of motion as well as education with walker ambulation. Patient was treated with Lovenox for their postoperative DVT prophylaxis during their inpatient stay. Patient was noted to have a relatively uneventful postoperative course. Patient reported satisfactory pain control with oral pain medications by postoperative day 1. Patient showed satisfactory progress with physical therapy. Patient moved steadily through the program and had no difficulty meeting the goals by postoperative day 5. Given patient's otherwise satisfactory course and having met physical therapy goals, plan is to discharge patient subacute rehab on postoperative day 5. Discharge condition/disposition: Patient will be discharged subacute rehab in stable condition. Discharge medications: Instructions are given on resumption of patient's normal daily medications per primary care recommendation, in addition patient will be prescribed Lovenox, Senokot-S, Tylenol. Discharge instructions: 1. Wound care and infection precautions, keep incision dry and covered while showering, no lotions, creams, moisturizers. No soaking, tubs, pools, hottubs. Do not scrub over the incision. 2. Weight-bear as tolerated with walker / cane until follow-up. 3. Ice and elevate when necessary. Do not exceed 20 minutes per hour with ice pack. 4. Utilize compression sleeve until seen at first follow up appointment. 5. Visiting nursing care. 6. Home physical therapy 7. Pain meds and anticoagulants per prescription. 8. Pain medication has potential to cause constipation. Increase oral fluid and fiber intake. Contact primary care provider if you have not had a bowel movement within 48 hours after discharge 9. No anti-inflammatory medication until discussed at first post operative visit, this including Motrin, Aleve, Mobic, Diclofenac 10. Follow up in office at 2 weeks postop with Cody Jessica PA-C/Everett Leslie 11. Follow up with your primary care doctor 7-10 days after discharge. 12. Contact [facility] with any questions, . Procedures: Intramedullary nail right intertrochanteric femur fracture Patient Condition at Discharge: Stable Plan - Discharge Summary Discharge Rx Participant: Yes New Discharge Prescriptions: New Sennosides/Docusate Sodium [Senna Plus 8.6-50 mg Softgel] 1 each PO DAILY #20 capsule Enoxaparin [Lovenox] 40 mg SQ DAILY #28 each Acetaminophen Tab [Tylenol] 650 mg PO Q6H #30 tab Discharge Medication List Enoxaparin [Lovenox] 40 mg SQ DAILY #28 each 05/24/23 [Rx] Sennosides/Docusate Sodium [Senna Plus 8.6-50 mg Softgel] 1 each PO DAILY #20 capsule 05/24/23 [Rx] Acetaminophen Tab [Tylenol] 650 mg PO Q6H #30 tab 05/25/23 [Rx] Follow up Appointment(s)/Referral(s): Homero Sainz MD [Primary Care Provider] - 1-2 days Alejandro Pinon DO [Doctor of Osteopathic Medicine] - 05/30/23 11:45 am [facility], [NON-STAFF] - 1-2 Days ([facility] will call you to schedule your in home nursing, physical therapy, and occupational therapy visits. ) Activity/Diet/Wound Care/Special Instructions: Orthopedic Discharge Instructions: 1. Wound care and infection precautions, keep incision dry and covered while showering, no lotions, creams, moisturizers. No soaking, pools, hot tubs. Do not scrub over incision. 2. Weight-bear as tolerated with walker / cane until follow-up. 3. Ice and elevate when necessary. Do not exceed 20 minutes per hour with ice pack. 4. Utilize compression sleeve until seen at first follow up appointment. 5. Pain meds and anticoagulants per prescription. 6. Pain medication has potential to cause constipation. Increase oral fluid and fiber intake. Contact primary care provider if you have not had a bowel movement within 48 hours after discharge. 7. No anti-inflammatory medication until discussed at first post operative visit, this including Motrin, Aleve, Mobic, Diclofenac. 8. Follow up in office at [address] Pinon 9. Follow up with your primary care doctor 7-10 days after discharge. 10. Contact [facility] with any questions, . Discharge Disposition: TRANSFER TO SNF/ECF
--- NOTE | 2023-05-26 04:52 | PN ---
PROGRESS NOTE DATE OF SERVICE: 05/25/2023 CHIEF COMPLAINT: Status post fracture of the right wrist and right hip. HISTORY OF PRESENT ILLNESS: This gentleman is doing well and he could probably be discharged any time. PHYSICAL EXAMINATION: GENERAL: He is afebrile. VITAL SIGNS: Normal. CHEST: Clear. CARDIAC: Normal. IMPRESSION: Fracture of the right wrist and right hip. PLAN: Discharge to rehab soon. MMODL / IJN: [id number] /
== END 2023-05-25 15:33 | disposition home or self-care (01) | DRG 308 ==
LOC: EC 08:10 → 4SSUR 12:19
PROVIDERS: ADMIT Orthopaedic Surgery Hand Surgery; ATTEND Orthopaedic Surgery Hand Surgery
PROC: 3E0234Z Introduction of Serum, Toxoid and Vaccine into Muscle, Percutaneous Approach (ICD-10-PCS; 2023-05-19)
PROC: HZ2ZZZZ Detoxification Services for Substance Abuse Treatment (ICD-10-PCS; 2023-05-19)
PROC: 0QH606Z Insertion of Intramedullary Internal Fixation Device into Right Upper Femur, Open Approach (ICD-10-PCS; principal; 2023-05-20 08:00)
DX: S72.141A Displaced intertrochanteric fracture of right femur, initial encounter for closed fracture (principal); D69.59 Other secondary thrombocytopenia; J44.9 Chronic obstructive pulmonary disease, unspecified; F10.239 Alcohol dependence with withdrawal, unspecified; F17.210 Nicotine dependence, cigarettes, uncomplicated; S52.571A Other intraarticular fracture of lower end of right radius, initial encounter for closed fracture; W18.09XA Striking against other object with subsequent fall, initial encounter; Y90.0 Blood alcohol level of less than 20 mg/100 ml; Z23 Encounter for immunization; Z28.310 Unvaccinated for COVID-19; Z86.718 Personal history of other venous thrombosis and embolism; Y92.007 Garden or yard of unspecified non-institutional (private) residence as the place of occurrence of the external cause; Y93.H1 Activity, digging, shoveling and raking
CPT/HCPCS: 36415; 70450; 71045; 72125; 73501; 73502; 80048; 80053; 80306; 80320; 81001; 85025; 85610; 85730; 86850; 86900; 86901; 87077; 87086; 87186; 90471; 90715; 93005; 94760; 96361; 96365; 96372; 96375; 96376; 99285

== ENCOUNTER 2024-02-14 08:33 | Observation (INO) | payer OTHER ==
--- NOTE | 2024-02-14 09:17 | ED ---
Weakness HPI - General Chief complaint: Weakness Stated complaint: L leg pain Time Seen by Provider: 02/14/24 08:44 Source: patient, EMS, RN notes reviewed Mode of arrival: EMS Limitations: no limitations - History of Present Illness Initial comments: This is a 63-year-old male who presents to the emergency department for weakness and frequent falls. Patient fell 4 days ago and injured his left leg. He has since had pain to the left sawyer down to the foot. States that he has been unable to ambulate. Patient is a daily drinker. History is not entirely clear. Per EMS, family called them due to patient's increasing weakness and frequent falls. Other than pain patient is not expressing any complaints. Last drink was yesterday. Patient states that he would like to quit drinking. MD Complaint: generalized weakness - Related Data Home Medications Medication Instructions Recorded Confirmed Acetaminophen Tab [Tylenol] 325 mg PO DAILY 02/14/24 02/14/24 Aspirin EC [Ecotrin Low Dose] 81 mg PO DAILY 02/14/24 02/14/24 Allergies Allergy/AdvReac Type Severity Reaction Status Date / Time Penicillins Allergy Rash/Hives Verified 02/14/24 11:26 Review of Systems ROS Statement: Those systems with pertinent positive or pertinent negative responses have been documented in the HPI. ROS Other: All systems not noted in ROS Statement are negative. Past Medical History Past Medical History: Deep Vein Thrombosis (DVT) Additional Past Medical History / Comment(s): rt arm dvt, lower spinal fracture History of Any Multi-Drug Resistant Organisms: None Reported Past Surgical History: No Surgical Hx Reported Past Anesthesia/Blood Transfusion Reactions: No Reported Reaction Past Psychological History: No Psychological Hx Reported Smoking Status: Current every day smoker Past Alcohol Use History: Daily, Heavy Past Drug Use History: None Reported General Exam Limitations: no limitations General appearance: alert, in no apparent distress Head exam: Present: atraumatic, normocephalic, normal inspection Respiratory exam: Present: normal lung sounds bilaterally. Absent: respiratory distress, wheezes, rales, rhonchi, stridor Cardiovascular Exam: Present: regular rate, normal rhythm, normal heart sounds. Absent: systolic murmur, diastolic murmur, rubs, gallop, clicks Extremities exam: Present: other (No deformities, swelling, or ecchymosis to the left lower extremity. Full range of motion. 2+ DP and PT pulses.) Neurological exam: Present: alert, oriented X3, CN II-XII intact Psychiatric exam: Present: normal affect, normal mood Skin exam: Present: warm, dry, intact, normal color. Absent: rash Course Vital Signs 02/14/24 02/14/24 02/14/24 08:35 09:30 10:00 Temperature 98.2 F Pulse Rate 86 67 65 Respiratory 18 17 18 Rate Blood Pressure 160/95 142/87 134/88 O2 Sat by Pulse 97 95 98 Oximetry 02/14/24 02/14/24 02/14/24 11:00 12:00 13:00 Temperature Pulse Rate 64 61 63 Respiratory 18 18 21 Rate Blood Pressure 135/79 130/79 132/78 O2 Sat by Pulse 99 98 99 Oximetry 02/14/24 14:00 Temperature Pulse Rate 65 Respiratory 18 Rate Blood Pressure 150/95 O2 Sat by Pulse 99 Oximetry Medical Decision Making - Medical Decision Making This is a 63-year-old male who presents to the emergency department for left leg pain and weakness. Was pt. sent in by a medical professional or institution? @ -No Did you speak to anyone other than the patient for history? @ -EMS provided the information about his family's concerns Did you review nursing and triage notes? @ -Yes, and I agree, it is accurate with regards to the patient's symptoms. Were old charts reviewed? @ -No Differential Diagnosis? @ -Differential Weakness: Hypoglycemia, shock, sepsis, hyponatremia, anemia, infection, UT, ETOH, adverse medicine reaction, overdose, stroke, this is not meant to be an all-inclusive list. EKG interpreted by me (3pts min.)? @ -EKG interpreted by me demonstrating the following: Sinus rhythm. Ventricular rate 70 bpm, VT interval 147 ms, QRS duration 85 ms, QTc 411 ms. X-rays interpreted by me (1pt min.)? @ -X-ray of the left foot and left tib-fib obtained. My interpretation identifies no acute fractures. CT interpreted by me (1pt min.)? @ -Not obtained U/S interpreted by me (1pt. min.)? @ -Not obtained What testing was considered but not performed? (CT, X-rays, U/S, labs)? Why? @ -None What meds were considered but not given? Why? @ -None Did you discuss the management of the patient with other professionals? @ -Yes, Dr. Sainz, who accepts the patient for admission Did you reconcile home meds? @ -Yes Was smoking cessation discussed for >3mins.? @ -No Was critical care preformed (if so, how long)? @ -No Were there social determinants of health that impacted care today? How? (Homelessness, low income, unemployed, alcoholism, drug addiction, transportation, low edu. Level, literacy, decrease access to med. care, assisted, rehab)? @ -Alcoholism, contributing to his frequent falls and current injury as well as need to detox Was there de-escalation of care discussed even if they declined? (Discuss DNR or withdrawal of care, Hospice)? @ -No What co-morbidities impacted this encounter? (DM, HTN, Smoking, COPD, CAD, Cancer, CVA, Hep., AIDS, mental health diagnosis, sleep apnea, morbid obesity)? @ -Alcoholism Was patient admitted / discharged? @ -Admitted. Lab work is relatively unremarkable. Alcohol level negative. X- ray of the left foot and tib-fib obtained revealing soft tissue swelling without other acute process. Case management initially spoke with the patient about options for detox and he had refused and said that he did not want to go to a facility and would rather do this at home. He was given pain medication for the leg, but continued to struggle with ambulation. He then had more of a discussion with his family and decided that it would be better for him to stay in the hospital to safely detox due to concern of withdrawals. They were also worried about his leg pain and being unable to ambulate and having additional falls. Patient subsequently admitted to medicine for alcohol withdrawals and started on the CIWA protocol. Duplex ultrasound of the left lower extremity ordered with results pending at the time of admission. Case discussed with ED attending Dr. Garrison. Undiagnosed new problem with uncertain prognosis? @ -None Drug Therapy requiring intensive monitoring for toxicity (Heparin, Nitro, Insulin, Cardizem)? @ -None Were any procedures done? @ -None Diagnosis/symptom? @ -Alcohol withdrawals, left leg pain Acute, or Chronic, or Acute on Chronic? @ -Acute Uncomplicated (without systemic symptoms) or Complicated (systemic symptoms)? @ -Complicated Side effects of treatment? @ -None Exacerbation, Progression, or Severe Exacerbation] @ -Not applicable Poses a threat to life or bodily function? @ -Yes, alcohol withdrawals can lead to seizures and DTs. - Lab Data Result diagrams: 02/14/24 09:02/14/24 12:00 Lab Results 02/14/24 02/14/24 02/14/24 Range/Units :25 02: 12:00 WBC 4.8 (3.8-10.6) k/uL RBC 4.15 L (4.30-5.90) m/uL Hgb 14.9 (13.0-17.5) gm/dL Hct 42.6 (39.0-53.0) % MCV 102.7 H (80.0-100.0) fL MCH 35.8 H (25.0-35.0) pg MCHC 34.9 (31.0-37.0) g/dL RDW 14.2 (11.5-15.5) % Plt Count 111 L (150-450) k/uL MPV 11.0 Neutrophils % 63 % Lymphocytes % 25 % Monocytes % 9 % Eosinophils % 1 % Basophils % 1 % Neutrophils # 3.0 (1.3-7.7) k/uL Lymphocytes # 1.2 (1.0-4.8) k/uL Monocytes # 0.4 (0-1.0) k/uL Eosinophils # 0.1 (0-0.7) k/uL Basophils # 0.1 (0-0.2) k/uL Macrocytosis Slight PT 11.8 (10.0-12.5) sec INR 1.1 (<1.2) APTT 26.9 (22.0-30.0) sec Sodium (137-145) mmol/L Potassium (3.5-5.1) mmol/L Chloride (98-107) mmol/L Carbon Dioxide (22-30) mmol/L Anion Gap mmol/L BUN (9-20) mg/dL Creatinine (0.66-1.25) mg/dL Est GFR (CKD-EPI)AfAm (>60 ml/min/1.73 sqM) Est GFR (CKD-EPI)NonAf (>60 ml/min/1.73 sqM) Glucose (74-99) mg/dL Plasma Lactic Acid Klever 1.2 (0.7-2.0) mmol/L Calcium (8.4-10.2) mg/dL Magnesium (1.6-2.3) mg/dL Total Bilirubin (0.2-1.3) mg/dL AST (17-59) U/L ALT (4-49) U/L Alkaline Phosphatase (38-126) U/L Creatine Kinase (55-170) U/L Total Protein (6.3-8.2) g/dL Albumin (3.5-5.0) g/dL Serum Alcohol mg/dL 02/14/24 Range/Units 12:00 WBC (3.8-10.6) k/uL RBC (4.30-5.90) m/uL Hgb (13.0-17.5) gm/dL Hct (39.0-53.0) % MCV (80.0-100.0) fL MCH (25.0-35.0) pg MCHC (31.0-37.0) g/dL RDW (11.5-15.5) % Plt Count (150-450) k/uL MPV Neutrophils % % Lymphocytes % % Monocytes % % Eosinophils % % Basophils % % Neutrophils # (1.3-7.7) k/uL Lymphocytes # (1.0-4.8) k/uL Monocytes # (0-1.0) k/uL Eosinophils # (0-0.7) k/uL Basophils # (0-0.2) k/uL Macrocytosis PT (10.0-12.5) sec INR (<1.2) APTT (22.0-30.0) sec Sodium 130 L (137-145) mmol/L Potassium 4.1 (3.5-5.1) mmol/L Chloride 102 (98-107) mmol/L Carbon Dioxide 20 L (22-30) mmol/L Anion Gap 8 mmol/L BUN 11 (9-20) mg/dL Creatinine 0.67 (0.66-1.25) mg/dL Est GFR (CKD-EPI)AfAm >90 (>60 ml/min/1.73 sqM) Est GFR (CKD-EPI)NonAf >90 (>60 ml/min/1.73 sqM) Glucose 70 L (74-99) mg/dL Plasma Lactic Acid Klever (0.7-2.0) mmol/L Calcium 8.3 L (8.4-10.2) mg/dL Magnesium 1.7 (1.6-2.3) mg/dL Total Bilirubin 1.8 H (0.2-1.3) mg/dL AST 53 (17-59) U/L ALT 22 (4-49) U/L Alkaline Phosphatase 137 H (38-126) U/L Creatine Kinase 45 L (55-170) U/L Total Protein 6.0 L (6.3-8.2) g/dL Albumin 2.9 L (3.5-5.0) g/dL Serum Alcohol <10 mg/dL - Radiology Data Radiology results: report reviewed, image reviewed Disposition Clinical Impression: Left leg pain, Alcohol withdrawal Disposition: ADMITTED IP TO THIS [facility] Time of Disposition: 12:59
[2024-02-14] MEDS: SODIUM CHLORIDE 0.9% 1,000 ML IV STA (09:23)
[2024-02-14] MEDS: KETOROLAC 15 MG/ML 1 ML VIAL IVP STA (09:24)
[2024-02-14 09:42] LABS: Basophils # (A) 0.1 k/uL (0-0.2); Basophils % (A) 1 %; Eosinophils # (A) 0.1 k/uL (0-0.7); Eosinophils % (A) 1 %; HCT 42.6 % (39.0-53.0); HGB 14.9 gm/dL (13.0-17.5); Lymphocytes # (A) 1.2 k/uL (1.0-4.8); Lymphocytes % (A) 25 %; MCH 35.8 pg (25.0-35.0); MCHC 34.9 g/dL (31.0-37.0); MCV 102.7 fL (80.0-100.0); Macrocytosis Slight; Monocytes # (A) 0.4 k/uL (0-1.0); Monocytes % (A) 9 %; Neutrophils % (A) 63 %; Platelet Count 111 k/uL (150-450); RBC 4.15 m/uL (4.30-5.90); RDW 14.2 % (11.5-15.5); WBC 4.8 k/uL (3.8-10.6)
--- NOTE | 2024-02-14 10:48 | XR ---
EXAMINATION TYPE: XR tibia fibula LT DATE OF EXAM: 02/14/2024 COMPARISON: 09/21/2022 HISTORY: Pain from fall TECHNIQUE: 2 view left tibia and fibula FINDINGS: No acute fracture or dislocation evident. There is soft tissue swelling over the ankle join t space. Remaining soft tissues are normal. Visualized joint spaces are normal. IMPRESSION: 1. No acute osseous abnormality left tibia and fibula. 2. Soft tissue swelling at the ankle. [facility], , 02/14/2024 10:46 AM
--- NOTE | 2024-02-14 10:50 | XR ---
EXAMINATION TYPE: XR foot complete LT DATE OF EXAM: 02/14/2024 COMPARISON: 09/21/2022 HISTORY: Pain from fall TECHNIQUE: 3 view left foot FINDINGS: Plantar calcaneal heel spurs present. No acute fracture or dislocation evident. There is joint space degenerative changes at the proximal i nterphalangeal joint spaces digits. Soft tissues are unremarkable foot. Note is made of some soft tissue swelling at the ankle. IMPRESSION: 1. Soft tissue swelling left ankle. 2. No acute osseous abnormality left foot. 3. Plantar calcaneal heel spur [facility], , 02/14/2024 10:47 AM
[2024-02-14 12:30] LABS: ALT 22 U/L (4-49); African American GFR (CKD) >90 (>60 ml/min/1.73 sqM); Albumin 2.9 g/dL (3.5-5.0); Alcohol <10 mg/dL; Anion Gap 8 mmol/L; Blood Urea Nitrogen 11 mg/dL (9-20); Calcium 8.3 mg/dL (8.4-10.2); Carbon Dioxide 20 mmol/L (22-30); Chloride 102 mmol/L (98-107); Creatine Kinase 45 U/L (55-170); Glucose 70 mg/dL (74-99); Non-African American GFR(CKD) >90 (>60 ml/min/1.73 sqM); Sodium 130 mmol/L (137-145); Total Bilirubin 1.8 mg/dL (0.2-1.3)
[2024-02-14 12:31] LABS: AST 53 U/L (17-59); Alkaline Phosphatase 137 U/L (38-126); Magnesium 1.7 mg/dL (1.6-2.3); Potassium 4.1 mmol/L (3.5-5.1)
[2024-02-14 12:34] LABS: INR 1.1 (<1.2); Partial Thromboplastin Time 26.9 sec (22.0-30.0); Prothrombin Time 11.8 sec (10.0-12.5)
[2024-02-14] MEDS: MORPHINE SULFATE 4 MG/ML SYRINGE IVP STA (13:26)
[2024-02-14] MEDS ORDERED: LORazepam 1 MG TAB PO PRN (14:33)
[2024-02-14] MEDS ORDERED: LORazepam 2 MG/ML INJ IV PRN ×4 (14:33)
[2024-02-14] MEDS ORDERED: NALOXONE 0.4 MG/ML 1 ML VIAL IV PRN (16:36)
[2024-02-14] MEDS ORDERED: ONDANSETRON 4 MG/2 ML VIAL IVP PRN (16:36)
[2024-02-14] MEDS ORDERED: IBUPROFEN 400 MG TAB PO PRN (16:36)
--- NOTE | 2024-02-14 17:32 | US ---
EXAMINATION TYPE: US venous doppler duplex LE LT DATE OF EXAM: 02/14/2024 5:25 PM COMPARISON: NONE CLINICAL INDICATION: Male, 63 years old with history of Leg pain; Patient states left ankle pain for 1 week. Hx of DVT in upper extremity in 2001. Patient is currently taking aspirin. SIDE PERFORMED: Left TECHNIQUE: The lower extremity deep venous system is examined utilizing real time linear array sonog kalyn with graded compression, doppler sonography and color-flow sonography. VESSELS IMAGED: Common Femoral Vein Deep Femoral Vein Greater Saphenous Vein * Femoral Vein Popliteal Vein Small Saphenous Vein * Proximal Calf Veins (* superficial vessels) Left Leg: Appears negative for DVT today IMPRESSION: 1. Left lower extremity ultrasound negative for deep venous thrombosis. [facility], , 02/14/2024 5:30 PM
[2024-02-14] MEDS: THIAMINE 100 MG/ML 2 ML VIAL IM STA (19:42)
[2024-02-14] MEDS: SODIUM CHLORIDE 0.9% 1,000 ML IV SCH (19:42)
[2024-02-14 21:16] LABS: Appearance,Urine Clear (Clear); Bilirubin,Urine Negative (Negative); Blood,Urine Negative (Negative); Color,Urine Yellow; Glucose,Urine (UA) Negative (Negative); Ketones,Urine 1+ (Negative); Leukocyte Esterase,Urine Negative (Negative); Nitrite,Urine Negative (Negative); PH, Urine 6.5 (5.0-8.0); Protein,Urine Negative (Negative); Specific Gravity,Urine 1.018 (1.001-1.035); Urobilinogen,Urine <2.0 mg/dL (<2.0)
[2024-02-14] MEDS: MORPHINE SULFATE 4 MG/ML SYRINGE IV PRN (21:24)
[2024-02-14 21:25] LABS: Amphetamine Screen,Urine Not Detected (NotDetected); Barbiturate Screen,Urine Not Detected (NotDetected); Benzodiazepines Screen,Urine Not Detected (NotDetected); Cocaine Screen,Urine Not Detected (NotDetected); Methadone Screen, Urine Not Detected (NotDetected); Opiate Screen,Urine Detected (NotDetected); Oxycodone Screen, Urine Not Detected (NotDetected); Phencyclidine Screen,Urine Not Detected (NotDetected); Tricyclic Antidepressant,Urine Not Detected (NotDetected); Urn Cannabinoid Scrn Not Detected (NotDetected)
--- NOTE | 2024-02-15 02:31 | HP ---
HISTORY AND PHYSICAL CHIEF COMPLAINT: Frequent falling, acute alcohol intoxication. HISTORY OF PRESENT ILLNESS: This 63-year-old male was brought to the emergency room by the family. He has been drinking heavily and falling frequently. There is nothing to suggest seizure activity at this point. REVIEW OF SYSTEMS: Unobtainable. Past medical history, family history, personal and social histories are all unobtainable. He is not on any medication. PHYSICAL EXAMINATION: VITAL SIGNS: Normal. GENERAL: He is intoxicated. HEAD, EARS, EYES, AND NOSE: Cannot be evaluated. NECK: Supple. CHEST: Clear. CARDIAC: Demonstrates sinus rhythm. ABDOMEN: Soft. There is no tenderness or masses that can be detected. EXTREMITIES: Normal. NEUROLOGIC: He was intoxicated. DIAGNOSES: He is admitted to the hospital with diagnoses, 1. Frequent falling. 2. Acute alcohol intoxication. 3. Chronic alcoholism. PLAN: 1. Bed rest. 2. IV fluids. 3. CIWA protocol. GIRISH / NELSON: [id number] /
[2024-02-15] MEDS: THIAMINE 100 MG TAB PO SCH (08:32)
[2024-02-15] MEDS: ACETAMINOPHEN TAB 325 MG TAB PO SCH (08:32)
[2024-02-15] MEDS: FOLIC ACID 1 MG TAB PO SCH (08:32)
[2024-02-15] MEDS: MULTIVITAMINS, THERA 1 EACH TAB PO SCH (08:32)
[2024-02-15] MEDS: ASPIRIN 81 MG PO SCH (08:32)
[2024-02-15] MEDS: KETOROLAC 15 MG/ML 1 ML VIAL IVP PRN (20:58)
[2024-02-16] MEDS: ACETAMINOPHEN TAB 325 MG TAB PO PRN (06:53)
[2024-02-16 08:38] VITALS: RESP 17
[2024-02-16 13:16] VITALS: BP 154/79; PULSE 74; TEMP 98.6
--- NOTE | 2024-02-17 10:28 | PN ---
PROGRESS NOTE DATE OF SERVICE: 02/15/2024 CHIEF COMPLAINT: Frequent falling and acute alcohol intoxication. HISTORY OF PRESENT ILLNESS: This gentleman is intoxicated and slightly tremulous. He is oriented and alert. He has had no seizures. PHYSICAL EXAMINATION: VITAL SIGNS: Normal. HEAD, EARS, EYES, NOSE AND MOUTH: Normal. CHEST: Clear. CARDIAC: Normal. IMPRESSION: 1. Acute alcohol intoxication. 2. Frequent falling. 3. Chronic alcoholism. PLAN: Continue with IV fluids and CIWA protocol. GIRISH / NELSON: [id number] /
--- NOTE | 2024-02-17 11:40 | DS ---
DISCHARGE SUMMARY CHIEF COMPLAINT: Frequent falling and acute alcohol intoxication. HISTORY OF PRESENT ILLNESS AND PHYSICAL EXAM: Details of this man's history and physical can be found in the initial workup. LABORATORY STUDIES: While he is in the hospital, he had laboratory studies, details of which can be found in the laboratory section of his chart. COURSE IN HOSPITAL: After admission, he was placed on bedrest and on the CIWA protocol. He was stabilized, but then signed himself out against medical advice. FINAL DIAGNOSES: 1. Acute alcohol intoxication. 2. Chronic alcoholism. 3. Delirium tremens. 4. Frequent falling. OPERATIONS: None. CONSULTATION: None. MMODL / IJN: [id number] /
--- NOTE | 2024-02-18 22:54 | DS ---
DISCHARGE SUMMARY CHIEF COMPLAINT: Acute alcohol intoxication with frequent falling. HISTORY OF PRESENT ILLNESS AND PHYSICAL EXAMINATION: Details of this man's history and physical can be found in the initial workup. COURSE IN HOSPITAL: After admission, he was placed on bedrest, started intravenous fluids and CIWA protocol. He seemed to be stable, but then he signed himself out against medical advice. FINAL DIAGNOSES: 1. Acute alcohol intoxication. 2. Chronic alcoholism. 3. Episodes of frequent falling. OPERATIONS: None. CONSULTATION: None. He signed out AMA. MMMONSE / NELSON: [id number] /
== END 2024-02-16 14:17 | disposition left against medical advice (07) ==
LOC: EC 08:33 → 6NMEDSUR 17:01
PROVIDERS: ADMIT Family Medicine; ATTEND Family Medicine
DX: F10.221 Alcohol dependence with intoxication delirium (principal); R29.6 Repeated falls; F17.200 Nicotine dependence, unspecified, uncomplicated; Y90.0 Blood alcohol level of less than 20 mg/100 ml; Z86.718 Personal history of other venous thrombosis and embolism; Z79.82 Long term (current) use of aspirin; Z88.0 Allergy status to penicillin; Z53.29 Procedure and treatment not carried out because of patient's decision for other reasons
CPT/HCPCS: 36415; 80053; 80306; 80320; 81003; 82550; 83605; 83735; 85025; 85610; 85730; 93005; 96361; 96372; 96374; 96375; 96376; 99285

== ENCOUNTER 2024-10-08 14:00 | Emergency (ER) | payer OTHER ==
--- NOTE | 2024-10-08 14:10 | ED ---
General Adult HPI - General Stated complaint: Leg Pain Time Seen by Provider: 10/08/24 14:03 Source: patient, RN notes reviewed Mode of arrival: ambulatory Limitations: no limitations - History of Present Illness Initial comments: 64-year-old male presents emergency room complaint of left ankle pain. Patient states that he is unsure how he injured this. Patient states that hurts when he ambulates there is some swelling noted no paresthesias. Patient also complains of chronic right hip pain after he had a fracture over a year ago. No other associated symptoms. - Related Data Home Medications Medication Instructions Recorded Confirmed Acetaminophen Tab [Tylenol] 325 mg PO DAILY 02/14/24 02/14/24 Aspirin EC [Ecotrin Low Dose] 81 mg PO DAILY 02/14/24 02/14/24 Allergies Allergy/AdvReac Type Severity Reaction Status Date / Time Penicillins Allergy Rash/Hives Verified 02/14/24 11:26 Review of Systems ROS Statement: Those systems with pertinent positive or pertinent negative responses have been documented in the HPI. ROS Other: All systems not noted in ROS Statement are negative. Past Medical History Past Medical History: Deep Vein Thrombosis (DVT) Additional Past Medical History / Comment(s): rt arm dvt, lower spinal fracture, broken hip and fractured femur and right wrist (April 2023) History of Any Multi-Drug Resistant Organisms: None Reported Past Surgical History: No Surgical Hx Reported Past Anesthesia/Blood Transfusion Reactions: No Reported Reaction Past Psychological History: No Psychological Hx Reported Smoking Status: Current some day smoker Past Alcohol Use History: Daily, Heavy Past Drug Use History: None Reported General Exam Limitations: no limitations General appearance: alert, in no apparent distress Head exam: Present: atraumatic, normocephalic, normal inspection Neck exam: Present: normal inspection, full ROM. Absent: tenderness, m eningismus, lymphadenopathy Respiratory exam: Present: normal lung sounds bilaterally. Absent: respiratory distress, wheezes, rales, rhonchi, stridor Cardiovascular Exam: Present: regular rate, normal rhythm, normal heart sounds. Absent: systolic murmur, diastolic murmur, rubs, gallop, clicks Extremities exam: Present: other (Left ankle moderate swelling tenderness palpation neurovascular intact, right hip tenderness full range of motion) Course Vital Signs 10/08/24 14:07 Temperature 98.5 F Pulse Rate 87 Respiratory 14 Rate Blood Pressure 134/93 O2 Sat by Pulse 96 Oximetry Procedures - Orthopedic Splinting/Casting Injury #1 Side: left Lower Extremity Injury Location: short leg, ankle Lower Extremity Immobilizer: posterior splint, synthetic pre-padded splint Other Orthopedic Equipment: walker Medical Decision Making - Medical Decision Making Was pt. sent in by a medical professional or institution (DYLAN Lafleur, [employer]NER OPERATOR, urgent care, hospital, or prison...) When possible be specific @ -No Did you speak to anyone other than the patient for history (EMS, parent, family, police, friend...)? What history was obtained from this source @ -No Did you review nursing and triage notes (agree or disagree)? Why? @ -I reviewed and agree with nursing and triage notes Were old charts reviewed (outside hosp., previous admission, EMS record, old EKG, old radiological studies, urgent care reports/EKG's, prison records)? Report findings @ -No old charts were reviewed Differential Diagnosis (chest pain, altered mental status, abdominal pain women, abdominal pain men, vaginal bleeding, weakness, fever, dyspnea, syncope, headache, dizziness, GI bleed, back pain, seizure, CVA, palpatations, mental health, musculoskeletal)? @ -Ankle sprain, ankle fracture, hip pain hip fracture EKG interpreted by me (3pts min.). @ -None X-rays interpreted by me (1pt min.). @ -X-ray right hip no acute fracture or malalignment, stable hardware X-ray left ankle showing evidence of problem nondisplaced fracture CT interpreted by me (1pt min.). @ -None done U/S interpreted by me (1pt. min.). @ -None done What testing was considered but not performed or refused? (CT, X-rays, U/S, labs)? Why? @ -None What meds were considered but not given or refused? Why? @ -None Did you discuss the management of the patient with other professionals (professionals i.e. DYLAN Lalfeur, [employer]NER OPERATOR, lab, RT, psych nurse, social work lecturer, synthetic gem press operator, teacher, parole or probation officer, correctional case records supervisor)? Give summary @ -No Was smoking cessation discussed for >3mins.? @ -No Was critical care preformed (if so, how long)? @ -No Were there social determinants of health that impacted care today? How? (Homelessness, low income, unemployed, alcoholism, drug addiction, transportation, low edu. Level, literacy, decrease access to med. care, fdc, rehab)? @ -No Was there de-escalation of care discussed even if they declined (Discuss DNR or withdrawal of care, Hospice)? DNR status @ -No What co-morbidities impacted this encounter? (DM, HTN, Smoking, COPD, CAD, Cancer, CVA, ARF, Chemo, Hep., AIDS, mental health diagnosis, sleep apnea, morbid obesity)? @ -None Was patient admitted / discharged? Hospital course, mention meds given and route, prescriptions, significant lab abnormalities, going to OR and other pertinent info. @ -Discharge patient has appears nondisplaced fracture patient was placed in a splint will follow-up with orthopedics resume as discussed. Undiagnosed new problem with uncertain prognosis? @ -No Drug Therapy requiring intensive monitoring for toxicity (Heparin, Nitro, Insulin, Cardizem)? @ -No Were any procedures done? @ -No Diagnosis/symptom? @Left nondisplaced tibia fracture Acute, or Chronic, or Acute on Chronic? @ -Acute Uncomplicated (without systemic symptoms) or Complicated (systemic symptoms)? @ -Uncomplicated Side effects of treatment? @ -No Exacerbation, Progression, or Severe Exacerbation? @ -No Poses a threat to life or bodily function? How? (Chest pain, [place], [place], pneumonia, PE, COPD, DKA, ARF, appy, cholecystitis, CVA, Diverticulitis, Homicidal, Suici siva, threat to staff... and all critical care pts) @ -No Disposition Clinical Impression: Nondisplaced fracture of distal end of left tibia Disposition: HOME SELF-CARE Condition: Stable Instructions (If sedation given, give patient instructions): Leg Fracture (ED) Additional Instructions: Please return to the Emergency Department if symptoms worsen or any other concerns. Is patient prescribed a controlled substance at d/c from ED?: No Referrals: Homero Sainz MD [Primary Care Provider] - 1-2 days Manjinder Kay DO [Doctor of Osteopathic Medicine] - 1-2 days Time of Disposition: 15:13
[2024-10-08] MEDS: MORPHINE SULFATE 4 MG/ML SYRINGE IM STA (14:28)
--- NOTE | 2024-10-08 14:33 | XR ---
EXAMINATION TYPE: XR Hip 2 views RT and AP Pelvis, XR ankle complete 3 views LT DATE OF EXAM: 10/08/2024 2:22 PM COMPARISON: None CLINICAL INDICATION: Male, 64 years old with history of pain; PHH, pain FINDINGS: Pelvis and right hip: Osteopenia. SI joints appear symmetric and intact as does the pubic symphysis. Mild degenerative garcia ge at both hips. Previous antegrade intramedullary nail and screw fixation proximal right femur. No p eriprosthetic fracture seen. Mildly displaced lesser trochanteric fracture fragment. No displaced fra cture seen. Left ankle: Marked diffuse soft tissue swelling. Small plantar heel spur. Similar delineation to the Achilles ten don. While no displaced fractures seen, there is prominent cortical irregularity along the inner mayelin in of the medial malleolus. Given the degree of osteopenia, subtle nondisplaced fractures difficult t o exclude. IMPRESSION: 1. Left ankle: No degree of marked osteopenia limits the evaluation. There is diffuse soft tissue swe lling present. Given the cortical irregularity along the inner margin at the base of the medial malle olus, a subtle nondisplaced medial malleolar fracture is difficult to exclude especially if there is a history of trauma. Clinically correlate. 2. Pelvis and right hip: Again, limited by osteopenia. There is antegrade intramedullary nail and hip screw fixation proximal right femur across the previous intertrochanteric fracture. No evident perip rosthetic or other displaced fractures seen. [facility], Workstation: [facility], 10/08/2024 2:31 PM
[2024-10-08] MEDS: ACET/COD 300 MG/30 MG STARTER PACK 6 TAB BTL PO STA (15:19)
[2024-10-08 15:25] VITALS: BP 163/92; PULSE 81; RESP 20; TEMP 98.4
== END 2024-10-08 15:33 | disposition home or self-care (01) ==
LOC: EC 14:00
DX: S82.302A Unspecified fracture of lower end of left tibia, initial encounter for closed fracture (principal); F17.200 Nicotine dependence, unspecified, uncomplicated; Z88.0 Allergy status to penicillin; X58.XXXA Exposure to other specified factors, initial encounter
CPT/HCPCS: 73502; 73610; 29515; 99284; J2270